=== PATIENT | male | born 1990 | race Hispanic/Latino ===

== ENCOUNTER 2018-08-02 16:21 | Inpatient (IN) | payer MEDICARE ==
--- NOTE | 2018-08-02 17:58 | PDOC.FPROB ---
FMR OB H&P: Medications - Current Home Medications: Medication Instructions Recorded Confirmed Type Diazepam [Valium] 10 mg PO HS 08/02/18 08/02/18 History Gabapentin 300 mg PO TID 08/02/18 08/02/18 History Hydroxyurea [Hydrea] 2,500 mg PO DAILY 08/02/18 08/02/18 History Hydroxyurea [Hydrea] 3,500 mg PO SEEPHYS 08/02/18 08/02/18 History METHadone HCl 10 mg PO BID 08/02/18 08/02/18 History METHadone HCl 20 mg PO HS 08/02/18 08/02/18 History Morphine IR Tab 30 mg PO BID 08/02/18 08/02/18 History Morphine IR Tab 60 mg PO HS 08/02/18 08/02/18 History Promethazine [Phenergan] 25 mg PO DAILY 08/02/18 08/02/18 History Rivaroxaban [Xarelto] 20 mg PO DAILY 08/02/18 08/02/18 History diphenhydrAMINE [Benadryl] 25 mg PO DAILY 08/02/18 08/02/18 History Allergies/Adverse Reactions: Allergies Allergy/AdvReac Type Severity Reaction Status Date / Time cyclobenzaprine HCl Allergy Intermediate Swollen Verified 06/27/15 22:12 [From Flexeril] Lips FMR OB H&P: Vital Signs - Maternal Vital signs: Vital Signs - First Documented Temp Pulse Resp BP Pulse Ox 98.6 F 119 H 18 113/81 96 08/02/18 17:15 08/02/18 17:15 08/02/18 17:15 08/02/18 17:15 08/02/18 17:15 FMR OB H&P: A/P Discussion: Date/Time: 08/02/18 8498 This H&P was discussed with [] and [] who agree with the above documentation and plan.
[2018-08-02 18:45] LABS: Hemoglobin 9.4 g/dL (14.0-18.0); Mean Corpuscular HGB CONC 36.5 g/dL (32.0-36.0); Mean Corpuscular Hemoglobin 37.2 pg (27.0-31.0); Platelet Count 343 thou/uL (130-400); RBC Distribution Width 20.8 % (11.5-14.5); Red Blood Cell (RBC) Count 2.53 mill/uL (4.70-6.10)
[2018-08-02 18:49] LABS: ALT (SGPT) 19 U/L (8-55); AST (SGOT) 24 U/L (5-34); Albumin 3.2 g/dL (3.5-5.0); Alkaline Phosphatase 118 U/L (40-150); Anion Gap 12 mmol/L (10-20); BUN (Urea Nitrogen) 16 mg/dL (8.9-20.6); Bilirubin, Total 4.1 mg/dL (0.2-1.2); Calc. Creatinine Clearance 127 mL/min (70-130); Calcium 8.8 mg/dL (7.8-10.44); Carbon Dioxide 23 mmol/L (22-29); Chloride 110 mmol/L (98-107); Estimated GFR-MDRD 77; Globulin 4.8 g/dL (2.4-3.5); Glucose 112 mg/dL (70-105); Potassium 3.7 mmol/L (3.5-5.1); Sodium 141 mmol/L (136-145)
[2018-08-02 18:52] LABS: CKMB 2.3 ng/mL (0-6.6)
[2018-08-02 18:56] LABS: Troponin I 0.745 ng/mL (< 0.028)
--- NOTE | 2018-08-02 19:01 | RAD ---
CHEST ONE VIEW: History: 28-year-old male with history of sickle cell crisis. Comparison: 03-10-16 FINDINGS: Left central line and injection port. Monitor leads overlie the chest. Minimal cardiomegaly. Bone manish nges consistent with sickle cell anemia. Patchy interstitial and alveolar nodular parenchymal changes noted bilaterally, particularly in the midlung zones but stable to improved from the prior 03-10-16 s tudy. No new confluent process. No pleural effusion. IMPRESSION: Cardiomegaly with bilateral interstitial and alveolar parenchymal changes, actually improved from the 2016 study, certainly consistent with sickle cell disease as well as associated bone changes. No sig nificant new confluent process. POS: NEELA
[2018-08-02 19:09] LABS: Acanthocytes SLIGHT = 1-5 cells (100X) (None Seen); Anisocytosis SLIGHT = 6-15 cells (100X) (0-5/hpf); Band 24 % (5-11); Elliptocytes SLIGHT = 2-5 cells (100X) (0-1/hpf); Hypochromia SLIGHT = 6-15 cells (100X) (0-5/hpf); Lymphocytes 7 % (21-51); MDiff Complete? YES; Monocytes 3 % (0-10); Neutrophil 66 % (42-75); PLT Morphology Comment Appears Adequate; Poikilocytosis SLIGHT = 6-15 cells (100X) (0-5/hpf); Polychromasia SLIGHT = 2-3 cells (100X) (0-2/hpf); Tear Drops SLIGHT = 2-5 cells (100X) (0-1/hpf)
[2018-08-02] MEDS ORDERED: Azithromycin 250 MG TAB PO SCH (19:15)
[2018-08-02] MEDS ORDERED: Dextrose 5 %-0.45 % NaCl 1,000 ML IV SCH (19:15)
--- NOTE | 2018-08-02 19:23 | PDOC.FPRHP ---
- History of Present Illness Chief Complaint: Pain History of Present Illness: Patient presents with CC of increasing pain that became uncontrollable with home meds. Took promethazine, benadryl methadone, morphine. Initially presented to [facility] and was transferred here. Pain started last night, felt drowsy. While he was sleeping he vomited in his sleep. Since then has had decreased PO intake, only a cup of water since arriving at hospital. Reports pain all over, worst pain is in his joints, low back, knees, L hip, shoulders. Pain with deep inspiration. Denies difficulty breathing, SOB, cough, fever. No sick contacts. Reported chest pain at [facility] but currently denies. Has been ambulating normally. On the way to his doctor's appt in [place], he was hospitalized 07/16 at [facility] for 3 days due to "low O2". No medication changes. - Allergies/Adverse Reactions Allergies Allergy/AdvReac Type Severity Reaction Status Date / Time cyclobenzaprine HCl Allergy Intermediate Swollen Verified 06/27/15 22:12 [From Flexeril] Lips - Home Medications Medication Instructions Recorded Confirmed Type Diazepam [Valium] 10 mg PO HS 08/02/18 08/02/18 History Gabapentin 300 mg PO TID 08/02/18 08/02/18 History Hydroxyurea [Hydrea] 2,500 mg PO DAILY 08/02/18 08/02/18 History Hydroxyurea [Hydrea] 3,500 mg PO SEEPHYS 08/02/18 08/02/18 History METHadone HCl 10 mg PO BID 08/02/18 08/02/18 History METHadone HCl 20 mg PO HS 08/02/18 08/02/18 History Morphine IR Tab 30 mg PO BID 08/02/18 08/02/18 History Morphine IR Tab 60 mg PO HS 08/02/18 08/02/18 History Promethazine [Phenergan] 25 mg PO Q6HR PRN 08/02/18 08/02/18 History Rivaroxaban [Xarelto] 20 mg PO DAILY 08/02/18 08/02/18 History diphenhydrAMINE [Benadryl] 25 mg PO Q6HR PRN 08/02/18 08/02/18 History - History PMHx: sickle cell, avascular necrosis (hip, lumbar, shoulder), hx of PE, pulmonary HTN PSHx: cholecystectomy, tosillectomy, R hip, embolectomy on head, mediport FHx: unsure Social: Denies tobacco, alcohol, drug use - Review of Systems General: reports: fatigue, other (reports headache). denies: fever/chills Eyes: denies: vision changes ENT: denies: nasal congestion, rhinorrhea Respiratory: denies: cough, congestion, shortness of breath Cardiovascular: reports: chest pain. denies: palpitation, edema Gastrointestinal: reports: vomiting. denies: nausea, diarrhea, constipation, abdominal pain Genitourinary: denies: dysuria Skin: denies: rashes, lesions Musculoskeletal: reports: pain, tenderness Neurological: denies: numbness, syncope - Vital signs BP: 135/84 HR: 96 RR: 23 Pox: 89% on 2L Wt: 93 kg - Physical Exam Constitutional: NAD, awake, alert and oriented HEENT: normocephalic and atraumatic, PERRLA, grossly normal vision, grossly normal hearing, MMM, oropharynx clear Heart: RRR, normal S1/S2, other (4/6 systolic murmur heard best over mitral post ) Lungs: CTAB, no respiratory distress, good air movement, no wheezing Abdomen: soft, non-tender, bowel sounds present, no masses/distention Musculoskeletal: normal structure, normal tone Neurological: no focal deficit Skin: no rash/lesions, good turgor, capillary refill <2 seconds Heme/Lymphatic: no unusual bruising or bleeding FMR H&P: Results - Labs Result Diagrams: 08/02/18 18:14 08/02/18 18:14 Lab results: WBC 30.0 thou/uL (4.8-10.8) H 08/02/18 18:14 Hgb 9.4 g/dL (14.0-18.0) L 08/02/18 18:14 Hct 25.8 % (42.0-52.0) L 08/02/18 18:14 MCV 102.0 fL (78.0-98.0) H 08/02/18 18:14 Plt Count 343 thou/uL (130-400) 08/02/18 18:14 Band Neuts % (Manual) 24 % (5-11) H 08/02/18 18:14 Sodium 141 mmol/L (136-145) 08/02/18 18:14 Potassium 3.7 mmol/L (3.5-5.1) 08/02/18 18:14 Chloride 110 mmol/L (98-107) H 08/02/18 18:14 Carbon Dioxide 23 mmol/L (22-29) 08/02/18 18:14 BUN 16 mg/dL (8.9-20.6) 08/02/18 18:14 Creatinine 1.12 mg/dL (0.6-1.3) 08/02/18 18:14 Glucose 112 mg/dL (70-105) H 08/02/18 18:14 Calcium 8.8 mg/dL (7.8-10.44) 08/02/18 18:14 Total Bilirubin 4.1 mg/dL (0.2-1.2) H 08/02/18 18:14 AST 24 U/L (5-34) 08/02/18 18:14 ALT 19 U/L (8-55) 08/02/18 18:14 Alkaline Phosphatase 118 U/L (40-150) 08/02/18 18:14 CK-MB (CK-2) 2.3 ng/mL (0-6.6) 08/02/18 18:14 Serum Total Protein 8.0 g/dL (6.0-8.3) 08/02/18 18:14 Albumin 3.2 g/dL (3.5-5.0) L 08/02/18 18:14 FMR H&P: A/P - Problem List (1) Sickle cell anemia with crisis Current Visit: No Status: Acute Code(s): D57.00 - HB-SS DISEASE WITH CRISIS , UNSPECIFIED Comment: Improving (2) Sepsis Current Visit: Yes Status: Acute Code(s): A41.9 - SEPSIS, UNSPECIFIED ORGANISM (3) Elevated troponin Current Visit: Yes Status: Acute Code(s): R74.8 - ABNORMAL LEVELS OF OTHER SERUM ENZYMES (4) Newly recognized murmur Current Visit: Yes Status: Acute Code(s): R01.1 - CARDIAC MURMUR, UNSPECIFIED (5) Pain Current Visit: No Status: Acute Code(s): R52 - PAIN, UNSPECIFIED (6) History of total right hip arthroplasty Current Visit: No Status: Chronic Code(s): Z96.641 - PRESENCE OF RIGHT ARTIFICIAL HIP JOINT - Plan 28 yo M with PMH sickle cell presents with increasing pain Vaso-occlusive sickle cell crisis - unable to control with home meds (methadone, morphine) - consulted anesthesiology for SAUSAGE GRINDER pump evaluation - CTA at [facility] negative for PE - IVF @ 1.5x maintenance. Will decrease in 24-48hrs or as patient is better tolerating PO intake. - elevated retic, LDH. Total bili 4.4, but at baseline. will continue to monitor labs for end organ damage - azithromycin (08/02) and levaquin (08/03) - continue home hydroxyurea, gabapentin, promethazine - Pulm consulted, Dr. Trinidad aware Sepsis possibly 2/2 lung infection - tachycardia, new lung infiltrate seen on CXR, leukocytosis with bands - treatment as above. tachy could be 2/2 to pain - blood cx drawn at outside ED - flu swab negative Elevated troponin - 0.4-> 0.745->0.62 - consulted cardiology, spoke to Dr. Cuadra who plans to see pt in am - T inversions, ST depressions in V2-4 - pt currently denies CP, likely 2/2 demand ischemia - on xarelto at home for hx of PE Heart murmur - no hx of murmur, no previous documentation. BNP 1130. - echo ordered - cardiology consulted Macrocytic anemia - H/H .10/17-->9.4 - monitor on am labs - goal to have Hgb above 10. will consider transfusion if hgb drops. Hyperbilirubinemia - 4.1, which is baseline - am CMP Hx of PE - on xarelto at home, continue Hx of Pulmonary HTN - on 2L at home. No increased O2 requirements during hospitalization Diet: Regular Code: FULL Dispo: Admit to IMCU FMR H&P: Upper Level - Pertinent history 28 yo HM with PMH of sickle cell disease and multiple complications presenting as admit from [facility] ER. Pt and "Marissa mother" report that pt began having worsening pain last night and attempted to control it with home medications but his pain continued to worsen. Pt reports 10/10 joint pain all over with no one joint hurting more than others. Pt denies CP but does note some increased SOB. He is chronically on 2L O2 via NC. Pt takes PO morphine and methadone for home pain control. Pt also takes hydroxyurea and is primarily managed by sand miller in [place]. Pt reports dx of pulmonary HTN on RHC in the last 1 year. Pt denies fever/chills, cough, NVD, dysuria, sick contacts, recent travel. - Pertinent findings Gen: well developed in mild pain/distress CV: tachycardic, 5/6 blowing holosytolic murmur best heart at [facility] Resp: normal effort, CTAB Abd: BS+, NTTP - Plan Date/Time: 08/02/181922 I, Balwinder Mejias MD PGY3, have evaluated this patient and agree with findings/ plan as outlined by intern product marketing manager resident. Pertinent changes/additions are listed here. 1. Vaso-occlusive event in Sickle Cell Disease -Pt presents for acute worsening of pain in the setting of known Sickle Cell Disease. Per reports, pt originally c/o CP but denies any current complaints of CP. Workup at outlying ER showed new alveolar infiltrates but no true consolidation. -At this time, without true consolidation on CXR and no evidence of cough, CP, tachypnea, wheezing, rales, or respiratory distress, acute chest syndrome is less likely. Pt admitted to IMCU and will continue to monitor closely. -Pt takes morphine and methadone at home for pain control. Will consult anesthesia for pain control and possible evaluation for SAUSAGE GRINDER. -Pt currently on home O2 requirement of 2L via NC, continue. -Will start pt on D5 1/2NS at 1.5x maintenance. -Obtain reticulocyte count and LDH. -With leukocytosis and CXR, will start pt on abx including Azithromycin for atypical coverage and Levaquin for S. Pna coverage. -Avoid NSAIDs, diuretics, or other nephrotoxic agents. 2. Sepsis 2/2 pulmonary infection -Pt presents with tachycardia, leukocytosis with bandemia and new infiltrates on CXR. 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 Cover for atypicals , S pna, and H influenzae. -Blood cultures obtained at outside facility. -Pt has not received flu shot, will screen with influenza swab. 3. Elevated cardiac enzymes 2/2 demand ischemia vs NSTEMI -Pt presents with tachycardia likely secondary to acute pain but denies CP. -EKG shows no acute STEMI but T wave inversions and ST depressions. -With upward trending cardiac enzymes from outlying ER, will consult cardiology at this time. -Continue to trend cardiac enzymes. -Pt anticoagulated with Xarelto due to history of prior PE/DVT. 4. New systolic murmur -Per pt report and chart review, no documented murmur on exam in the past. -TTE ordered and cardiology consulted. 5. Elevated bilirubin likely 2/2 number 1 -Near baseline -Continue to monitor 6. Pulmonary HTN 2/2 number 1 -Pt carries diagnosis. -Continue oxygen via NC. FULL code PPx: Xarelto for VTE, no GI indicated. disposition: Admit to inpatient IMCU for anticipated length of stay greater than two midnights, pending clinical course. Attending Addendum - Attending Addendum Date/Time: 08/02/182033 I personally evaluated the patient and discussed the management with Dr. Enriquez /Randell I agree with the History, Examination, Assessment and Plan documented above with any addition or exceptions noted below- Briefly this is a 28 yo male with h /o SC disease, pulmonary hypertension, avascular necrosis of the hip (right), h/ o of PE on xarelto presents c/o 1 day h/o worsening pain all joints, decreased po intake, increased SOB. Denies any fever, sore throat, URI symptoms, or ill contacts. Did have some N/V last night. Last saw his sand miller 2 weeks ago- no recent medication changes. PMH/PSH/Meds/All/Sh reviewed and agree with resident's documentation. Afebrile P119 RR 20 96% on 2 L NC BP 113/81. Exam repeated by me and agree with resident's findings. Labs: WBC=30.0, H/H= 9.4/25.8 , plt= 343, Diff= 66N/24B/7L, Cm=525, K=3.7, Bz=264, CO2=23, BUN/Cr= 16.112, Hfyl=970, t bili= 4.1, LDH= 451, AST/ALT= 24/19, retic count= 8.3, trop I = 0.4 -> 0.745. CXR- b/l interstitial and alveolar parenchymal changes- improved from 2016. EKG- sinus tachycardia, ST depression V2-V3 and inverted T waves V2 and V3. A/P: 1) Vaso-occlusive crises- Admit to IMCU. Continue IVF, pain medications , Oxygen. 2) Possible infectious process with elevated WBC and bandemia- check flu swab, blood cultures drawn at outside facility. Start on antibiotics. 3) New murmur- will check echo; obtain records from his physicians in [place]. 4) Pulmonary HTN- continue O2.
[2018-08-02 19:26] LABS: Reticulocyte Count 8.3 % (0.5-1.5)
[2018-08-02] MEDS ORDERED: Naloxone HCl 0.4 mg/ml Vial IV PRN (19:57)
[2018-08-02] MEDS ORDERED: diphenhydrAMINE 50 MG/ML VIAL IM PRN (19:57)
[2018-08-02] MEDS ORDERED: diphenhydrAMINE 25 MG CAP PO PRN (19:57)
[2018-08-02] MEDS ORDERED: Zolpidem Tartrate 5 MG TAB PO PRN (19:57)
[2018-08-02] MEDS ORDERED: Communication Order-Pharmacy FS SCH (20:00)
[2018-08-02] MEDS: fentaNYL Citrate/PF 2,000 MCG in Sodium Chloride 0.9% 60 ML IV PRN (20:19)
[2018-08-02] MEDS: Dextrose 5 %-0.45 % NaCl 1,000 ML IV SCH (20:22)
[2018-08-02] MEDS: Gabapentin 300 MG CAP PO SCH (20:35)
[2018-08-02] MEDS: Promethazine HCl 25 MG/ML VIAL IM PRN (20:39)
[2018-08-02] MEDS: diphenhydrAMINE 50 MG/ML VIAL IVP PRN (20:39)
[2018-08-02] MEDS ORDERED: METHadone HCl 10 MG TAB PO SCH (21:00)
[2018-08-02] MEDS ORDERED: Diazepam 5 MG TAB PO SCH (21:00)
[2018-08-02 21:24] LABS: CKMB 2.3 ng/mL (0-6.6)
[2018-08-02 21:31] LABS: Critical Call Chem Troponin I RESULT DECREASING
[2018-08-03] MEDS: Dextrose 5 %-0.45 % NaCl 1,000 ML IV SCH ×6 (00:14→21:34)
[2018-08-03] MEDS: diphenhydrAMINE 50 MG/ML VIAL IVP PRN ×6 (00:16→22:54)
[2018-08-03 05:33] LABS: ALT (SGPT) 19 U/L (8-55); AST (SGOT) 26 U/L (5-34); Albumin 3.2 g/dL (3.5-5.0); Alkaline Phosphatase 108 U/L (40-150); Anion Gap 13 mmol/L (10-20); BUN (Urea Nitrogen) 20 mg/dL (8.9-20.6); Bilirubin, Total 2.9 mg/dL (0.2-1.2); Calc. Creatinine Clearance 83 mL/min (70-130); Calcium 8.1 mg/dL (7.8-10.44); Carbon Dioxide 22 mmol/L (22-29); Chloride 107 mmol/L (98-107); Estimated GFR-MDRD 47; Globulin 4.5 g/dL (2.4-3.5); Glucose 136 mg/dL (70-105); Potassium 3.8 mmol/L (3.5-5.1); Protein, Total 7.7 g/dL (6.0-8.3); Sodium 138 mmol/L (136-145)
--- NOTE | 2018-08-03 07:11 | PDOC.FM ---
- Subjective Subjective: Gelacio Malcolm is a 28 year old M with a PMH of sickle cell disease with hx of avascular necrosis and total hip replacement who presented to ED with complaint of diffuse pain, nausea, and myalgias for 3 days that failed to improve with home regimen of methadone, morphine, and hydroxyurea. He has no acute events overnight and continues to complain of pain and nausea, requests to have phenergan switched from IM to IV. Per nursing staff, he slept most of the night and did not complain of too much additional pain. - Objective MAR Reviewed: Yes Vital Signs & Weight: Vital Signs (12 hours) Temp Pulse Resp BP Pulse Ox 08/03/18 03:43 97.6 F 120 H 18 107/75 94 L 08/02/18 23:52 97.5 F L 120 H 18 126/82 93 L 08/02/18 20:00 93 L 08/02/18 19:25 98.1 F 126 H 20 119/77 93 L Weight Weight 93.695 kg I&O: 08/02/18 08/03/18 08/04/18 06:59 06:59 06:59 Intake Total 3095 Balance 3095 Result Diagrams: 08/03/18 07:04 08/03/18 04:45 <Ricardo Addison - Last Filed: 08/03/18 11:03> - Objective Vital Signs & Weight: Vital Signs (12 hours) Temp Pulse Resp BP Pulse Ox 08/03/18 20:00 93 L 08/03/18 19:29 98.8 F 129 H 27 H 119/84 93 L 08/03/18 15:35 115 H 15 99/73 93 L 08/03/18 11:00 97.9 F 111 H 16 101/72 95 Weight Weight 93.695 kg I&O: 08/02/18 08/03/18 08/04/18 06:59 06:59 06:59 Intake Total 3095 840 Output Total 500 1500 Balance 2595 -660 Result Diagrams: 08/03/18 07:04 08/03/18 04:45 <Miko Ro - Last Filed: 08/03/18 21:55> Phys Exam - Physical Examination Constitutional: NAD HEENT: moist MMs, sclera anicteric Neck: no JVD, supple, full ROM Respiratory: no wheezing, no rales, no rhonchi, clear to auscultation bilateral tachycardic, 3/6 systolic murmur Gastrointestinal: soft, non-tender, no distention Musculoskeletal: no edema, pulses present diffuse pain and TTP in major joints, no point of maximal pain per pt Neurological: moves all 4 limbs Psychiatric: normal affect, A&O x 3 Skin: cap refill <2 seconds <Ricardo Addison - Last Filed: 08/03/18 11:03> Dx/Plan (1) Sickle cell anemia with crisis Code(s): D57.00 - HB-SS DISEASE WITH CRISIS, UNSPECIFIED Status: Acute (2) Sepsis Code(s): A41.9 - SEPSIS, UNSPECIFIED ORGANISM Status: Acute (3) Newly recognized murmur Code(s): R01.1 - CARDIAC MURMUR, UNSPECIFIED Status: Acute (4) Pain Code(s): R52 - PAIN, UNSPECIFIED Status: Acute (5) Elevated troponin Code(s): R74.8 - ABNORMAL LEVELS OF OTHER SERUM ENZYMES Status: Acute (6) NSTEMI (non-ST elevated myocardial infarction) Code(s): I21.4 - NON-ST ELEVATION (NSTEMI) MYOCARDIAL INFARCTION Status: Acute - Plan Plan: Gelacio Malcolm is a 28 year old M with PMH of sickle cell disease being admitted for acute pain crisis with concern for acute chest syndrome Consults: 1) Cardiology-Dr. Cuadra 2) Pulmonology-Dr. Ayon 3) Anesthesiology HRIS MANAGER: - Alert and oriented X3, no focal deficits - Sedation/Meds: No sedation, current on Fentanyl WIRE BENDER HAND managed by Anesthesia - Benadryl and Phenergan for nausea and itching RESP: concern for pneumonia, hx of pulmonary HTN - O2 sats 93-96% on 2L NC, no respiratory distress, lungs CTAB-improved from admission - ABG: not indicated at this time - CTA chest: no evidence for acute PE, patchy ground glass opacities bilaterally. 10 mm opacity noted laterally at right upper lung - CXR: no evidence for acute cardiopulmonary disease - Pulm regimen: O2 supplementation, Levaquin and Azithromycin to cover for PNA CV: 3/6 systolic murmur not previously documented - Tachycardic, regular rhythm, 3/6 systolic murmur, not previously documented - Checking Echo, results pending - BP 107/75, HR 120 - Consider repeating imaging - EKG shows no ST elevations, but does show T wave inversions and ST depressions - Dr. Cuadra, Cardiology, has been consulted GI: - abd NT/ND, Normoactive BS - GI ppx: none - Diet: regular - I/Os: intake of 3095 L, urinary output in urinal unmeasured at this time - D5 1/2 NS @ 190 ml/hr - Na 138, K 3.8, Cl 107, HCO3 22 Heme: Hx of PE, vaso-occlusive sickle cell crisis - H/H 9.4/25.8 - DVT Ppx: Xarelto - Continue home hydroxyurea - Takes methadone and morphine via mediport at home - Consulting Dr. Mcconnell, Hematology/Onc /Renal - voiding normally - unmeasured voids - Cr 1.73, up from 1.12 - Avoiding NSAIDs, diuretics, or other nephrotoxic agents ID: sepsis with concern for pneumonia on CT of chest - Day 2 of Levaquin, Day 2 of Azithromycin - Tmax 98.6, Tachycardic 120 - WBC 30.0, 66% PMNs, 24% bands - Procalcitonin pending - blood culture drawn by outside ER - Flu swab negative - Checking viral respiratory panel Skin: - normal skin exam Lines: - L mediport present on arrival - No peripheral IVs at this time Dispo: >2 days Code status: Full Code <Ricardo Addison - Last Filed: 08/03/18 11:03> Attending Addendum - Attending Addendum Date/Time: 08/03/18 3922 I personally evaluated the patient and discussed the management with Dr. Addison. I agree with and repeated the History, Examination, Assessment and Plan documented above with any addition or exceptions noted below. <Miko oR - Last Filed: 08/03/18 21:55>
[2018-08-03 07:18] LABS: Hemoglobin 8.8 g/dL (14.0-18.0); Mean Corpuscular Hemoglobin 34.1 pg (27.0-31.0); Mean Platelet Volume 7.9 fL (7.4-10.4); Platelet Count 370 thou/uL (130-400); RBC Distribution Width 20.8 % (11.5-14.5); Red Blood Cell (RBC) Count 2.56 mill/uL (4.70-6.10); White Blood Cell (WBC) Count 21.1 thou/uL (4.8-10.8)
[2018-08-03] MEDS: Rivaroxaban 10 MG TAB PO SCH (08:46)
[2018-08-03] MEDS: Gabapentin 300 MG CAP PO SCH ×3 (08:47→21:32)
[2018-08-03] MEDS: Azithromycin 250 MG TAB PO SCH (08:47)
[2018-08-03] MEDS: Hydroxyurea 500 MG CAP PO SCH (08:48)
[2018-08-03] MEDS: diphenhydrAMINE 25 MG CAP PO SCH (08:49)
[2018-08-03] MEDS ORDERED: METHadone HCl 10 MG TAB PO SCH (09:00)
[2018-08-03 09:16] LABS: Band 1 % (5-11); Eosinophils 1 % (0-10); Lymphocytes 41 % (21-51); MDiff Complete? YES; Monocytes 1 % (0-10); Neutrophil 56 % (42-75); PLT Morphology Comment Appears Adequate; Polychromasia MARKED = >4 cells (100X) (0-2/hpf); Schistocytes SLIGHT = 2-5 cells (100X) (0-1/hpf); Spherocytes SLIGHT = 1-5 cells (100X) (None Seen)
--- NOTE | 2018-08-03 09:52 | CON ---
DATE OF CONSULTATION: 08/03/2018 HISTORY OF PRESENT ILLNESS: This is a 28-year-old gentleman who presented with sickle cell crisis. He was seen several years ago by Dr. Almeida after he presented with respiratory failure with bilater al pulmonary infiltrates secondary to sickle cell crisis and acute chest syndrome. Today, he is having significant headache, joint pains. He denies any coughing, fever or chills. He has multiple pains in multiple joints. SOCIAL HISTORY: Nonsmoker. PAST MEDICAL HISTORY: Well outlined, pertinent for sickle cell disease, history of previous apparent ly pulmonary emboli, history of pulmonary hypertension. PAST SURGICAL HISTORY: Tonsils, right hip, MediPort, cholecystectomy. ALCOHOL: None. TOBACCO: None. MEDICATIONS: From home includes Phenergan 25 p.r.n., Benadryl b.i.d. and p.r.n. Hydrea 2500 mg daily , gabapentin 300 mg 3 times a day, Xarelto 20 once a day, morphine 60 mg at night time, 30 mg twice a day, methadone 20 at bedtime 10 twice a day, Valium. Since admission has been started on antibiotics, hydration, pain medication. REVIEW OF SYSTEMS: Otherwise, 10-point negative. PHYSICAL EXAMINATION: VITAL SIGNS: His sats are 96 on 2 liters, respirations 15, temperature 98, pulse 118, blood pressure 104/70. GENERAL: Appears to be in no acute respiratory distress, but clearly in pain. CHEST: Decreased breath sounds, no wheezing. CARDIAC: Normal S1, S2, no gallops. ABDOMEN: Soft, no masses. LABORATORY: His creatinine is 1.73. Elevated from previous creatinine, otherwise electrolytes are n ormal. White count 21,000, H&H 8 and 26, platelet count is normal. His chest x-ray shows bilateral pulmonary infiltrates, though he has had similar infiltrates in the p ast versus cardiomegaly. IMPRESSION: 1. Sickle cell crisis with acute chest syndrome, appears to be in no acute distress. 2. Chronic pain. 3. Renal failure. PLAN: Continue aggressive hydration. Empiric antibiotics, supportive care. I will follow while in the IM.
[2018-08-03] MEDS: Promethazine 25 MG TAB PO SCH (10:36)
[2018-08-03] MEDS: Promethazine HCl 25 MG/ML VIAL IM PRN ×2 (10:37→15:06)
[2018-08-03] MEDS ORDERED: Benzocaine (Dental) 20% 10 gm Tube TOP PRN (13:15)
[2018-08-03] MEDS: fentaNYL Citrate/PF 2,000 MCG in Sodium Chloride 0.9% 60 ML IV PRN (18:59)
[2018-08-03] MEDS: Promethazine HCl 25 MG/ML VIAL SLOW IVP PRN ×2 (18:59→22:54)
--- NOTE | 2018-08-03 22:44 | CON ---
DATE OF CONSULTATION: 08/03/2018 REASON FOR CONSULTATION: Sickle cell pain crisis. HISTORY OF PRESENT ILLNESS: A 28-year-old male with sickle-cell disease presenting with worsening pain. The patient presented to [facility] with worsening pain and subsequently was transferred to [facility]. Pain started the night prior to admission. The patient complains of pain in his knees, hips, shoulders, and lower back with an uncomfortable feeling in his chest, accompanied by cough. The patient is currently satting 90%-96% on 2 liters by nasal cannula and the patient states that he uses oxygen at home. The patient denied any fevers or chills currently. The patient states he was hospitalized one other time this year for crisis and twice last year. The patient follows with a physician in [place] at [facility]. The patient currently takes hydroxyurea at home and states he is compliant with this. He takes methadone chronically for long-acting pain control along with immediate-release morphine. This typically controls his pain. The patient has avascular necrosis in hips and shoulders, and states he is due for another hip replacement in the coming months. The patient is currently on a fentanyl KITCHEN FOOD ASSEMBLER, which is being controlled by Anesthesia and this has resulted in improvement in his symptoms. The patient states that he has a headache and has not really felt like eating since being admitted to the hospital. Chest x-ray upon transfer to the hospital showed cardiomegaly with bilateral interstitial and alveolar parenchymal changes, improved as compared to 2016. A CT angio of the chest done at [facility] did not show any pulmonary embolism; however, imaging did show a 10-mm opacity laterally in the right upper lung and patchy ground-glass opacities. A 3/6 systolic ejection murmur was noted and echocardiogram was done this morning with results currently pending. The patient states he has not required blood transfusions in the last couple of years and his baseline hemoglobin ranges from 7-9. Of note, the patient is also on Xarelto for history of PE. The patient does not report problems with his MediPort. REVIEW OF SYSTEMS: Ten-point review of systems is negative except as per HPI. 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 PAST SURGICAL HISTORY: Cholecystectomy, tonsillectomy, right hip replacement, embolectomy in the head, and MediPort placement. FAMILY HISTORY: Unsure. SOCIAL HISTORY: Denies tobacco, alcohol, or drug use. PHYSICAL EXAMINATION: VITAL SIGNS: Temperature 97.9, pulse 115, respirations 15, satting 93% on 2 liters by nasal cannula, blood pressure 99/73. GENERAL APPEARANCE: The patient is lying in bed in no acute distress. HEENT: No scleral icterus noted. NECK: Supple. CARDIOVASCULAR: 3/6 murmur. Respirations nonlabored. LUNGS: Clear to auscultation bilaterally. The patient is currently on nasal cannula with oxygen flow at 2 liters. ABDOMEN: Soft, nondistended with mild tenderness to palpation diffusely. SKIN: No rashes. MediPort in place without tenderness or erythema. NEUROLOGIC: Cranial nerves II-XII grossly intact. PSYCHIATRIC: Awake, alert, and oriented x3. LABORATORY DATA: White blood cells 30 on admission, currently 21.1; hemoglobin 9.4 on admission, currently 8.8 with an MCV of 103; platelet count of 370. Retic count 8.3 with an absolute retic count of 209,000. BUN 20; creatinine 1.73, up from 1.12 on admission. Total bilirubin 4.1 on admission, currently 2.9; LDH 451. Troponin is 0.745, down to 0.620. IMAGING DATA: CT angio of the chest done at [facility] showed bilateral ground glass opacities and a 10-mm lateral right upper lobe opacity. ASSESSMENT AND PLAN: A 28-year-old male with sickle-cell disease presenting with acute pain crisis and mild acute chest syndrome. The patient has chest pain and cough along with leukocytosis and some imaging findings on scan of the chest, which was consistent with a diagnosis of acute chest syndrome , which may be secondary to pneumonia. The patient is currently on antibiotics and is improving. The patient's hemoglobin is at his baseline and he has an appropriate reticulocyte response. I do not advise blood transfusions at this time. I would not transfuse unless hemoglobin is less than 5 or the patient becomes extremely hypoxic. The patient's pain is reasonably well controlled with fentanyl KITCHEN FOOD ASSEMBLER and we will defer treatment to Anesthesiology with regards to pain. Agree with Cardiology consult due to new murmur and history of pulmonary hypertension as pulmonary hypertension is the #1 cause of in aging sickle- cell patients. Okay to continue hydroxyurea at this time as the patient has been taking it chronically, and based on elevated MCV is compliant with his treatment. We will continue to follow this patient with you. Please call with questions. Thank you for this consult. MARCELLUS
[2018-08-04] MEDS: Dextrose 5 %-0.45 % NaCl 1,000 ML IV SCH ×2 (03:43→08:14)
[2018-08-04] MEDS: Promethazine HCl 25 MG/ML VIAL SLOW IVP PRN ×5 (03:43→20:23)
[2018-08-04] MEDS: diphenhydrAMINE 50 MG/ML VIAL IVP PRN ×5 (03:44→20:32)
[2018-08-04 04:34] LABS: ALT (SGPT) 74 U/L (8-55); AST (SGOT) 73 U/L (5-34); Albumin 3.1 g/dL (3.5-5.0); Alkaline Phosphatase 106 U/L (40-150); Anion Gap 11 mmol/L (10-20); BUN (Urea Nitrogen) 12 mg/dL (8.9-20.6); Bilirubin, Total 3.5 mg/dL (0.2-1.2); Calc. Creatinine Clearance 135 mL/min (70-130); Carbon Dioxide 18 mmol/L (22-29); Chloride 110 mmol/L (98-107); Estimated GFR-MDRD 82; Globulin 4.4 g/dL (2.4-3.5); Glucose 127 mg/dL (70-105); Protein, Total 7.5 g/dL (6.0-8.3); Sodium 135 mmol/L (136-145)
--- NOTE | 2018-08-04 05:49 | PDOC.FM ---
- Subjective Subjective: Gelacio Malcolm seen at bedside this morning, he states that he is feeling fine, does complain of back pain. He denies any chest pain or difficulty breathing. Early this morning around 4 am, he had a temp of 101.2. Blood cultures were ordered. Patient seen and is no distress, he was resting comfortably in bed. Denies feeling feverish when examined around 0625 - Objective MAR Reviewed: Yes Vital Signs & Weight: Vital Signs (12 hours) Temp Pulse Resp BP Pulse Ox 08/04/18 04:00 101.2 F H 128 H 25 H 126/88 94 L 08/04/18 00:00 97.9 F 124 H 18 129/87 93 L 08/03/18 20:00 93 L 08/03/18 19:29 98.8 F 129 H 20 119/84 93 L Weight Weight 97.069 kg I&O: 08/02/18 08/03/18 08/04/18 06:59 06:59 06:59 Intake Total 3095 840 Output Total 500 1500 Balance 2595 -380 Result Diagrams: 08/04/18 03:41 08/04/18 03:41 Radiology Reviewed by me: Yes <Ricardo Addison - Last Filed: 08/04/18 11:04> - Objective Vital Signs & Weight: Vital Signs (12 hours) Temp Pulse Resp BP Pulse Ox 08/04/18 19:26 99.4 F 132 H 24 H 118/89 97 08/04/18 15:31 98.5 F 129 H 21 H 131/92 H 100 08/04/18 11:24 98.9 F 117 H 19 130/90 100 Weight Weight 97.069 kg I&O: 08/03/18 08/04/18 08/05/18 06:59 06:59 06:59 Intake Total 3095 5815 2004 Output Total 500 1500 3525 Balance 2595 7337 -2132 Result Diagrams: 08/04/18 03:41 08/04/18 03:41 <Miko Ro - Last Filed: 08/04/18 21:45> Phys Exam - Physical Examination Constitutional: NAD HEENT: moist MMs, sclera anicteric Neck: supple, full ROM Respiratory: no wheezing, no rales, no rhonchi, clear to auscultation bilateral tachycardic, 3/6 systolic murmur Gastrointestinal: soft, non-tender Musculoskeletal: no edema, pulses present Neurological: normal sensation, moves all 4 limbs Psychiatric: normal affect, A&O x 3 <Ricardo Addison - Last Filed: 08/04/18 11:04> Dx/Plan (1) Sickle cell anemia with crisis Code(s): D57.00 - HB-SS DISEASE WITH CRISIS, UNSPECIFIED Status: Acute (2) Sepsis Code(s): A41.9 - SEPSIS, UNSPECIFIED ORGANISM Status: Acute (3) Hb-SS disease with acute chest syndrome Code(s): D57.01 - HB-SS DISEASE WITH ACUTE CHEST SYNDROME Status: Acute (4) Newly recognized murmur Code(s): R01.1 - CARDIAC MURMUR, UNSPECIFIED Status: Acute (5) Pain Code(s): R52 - PAIN, UNSPECIFIED Status: Acute (6) Elevated troponin Code(s): R74.8 - ABNORMAL LEVELS OF OTHER SERUM ENZYMES Status: Acute (7) NSTEMI (non-ST elevated myocardial infarction) Code(s): I21.4 - NON-ST ELEVATION (NSTEMI) MYOCARDIAL INFARCTION Status: Acute - Plan Plan: Gelacio Malcolm is a 28 year old M with PMH of sickle cell disease Hospital Day #2 being admitted for acute pain crisis with concern for acute chest syndrome Consults: 1) Cardiology-Dr. Cuadra 2) Pulmonology-Dr. Ayon 3) Anesthesiology 4 ) Hem/Onc-Dr. Mcconnell [employer]: - Alert and oriented X3, no focal deficits - Sedation/Meds: No sedation, current on Fentanyl LEAF STICKER managed by Anesthesia - Benadryl and Phenergan for nausea and itching RESP: concern for pneumonia, hx of pulmonary HTN, mild acute chest syndrome - O2 sats 93-96% on 2L NC, no respiratory distress, lungs CTAB-improved from admission - ABG: not indicated at this time - CTA chest: no evidence for acute PE, patchy ground glass opacities bilaterally. 10 mm opacity noted laterally at right upper lung - CXR: no evidence for acute cardiopulmonary disease - Pulm regimen: O2 supplementation, Levaquin Day 2 and Azithromycin Day 2 to cover for PNA CV: 3/6 systolic murmur not previously documented - Tachycardic, regular rhythm, 3/6 systolic murmur, not previously documented - Checking Echo, results pending - BP 126/68, HR 128 - Consider repeating imaging - EKG shows no ST elevations, but does show T wave inversions and ST depressions - Dr. Cuadra, Cardiology, has been consulted GI: - abd NT/ND, Normoactive BS - GI ppx: none - Diet: regular - I/Os: -600 mL in last 12 hour, total balance +1900 - D5 1/2 NS @ 190 ml/hr, discontinuing IVFs this morning - Na 135, K 4.0, Cl 110, HCO3 18 Heme: Hx of PE, vaso-occlusive sickle cell crisis - H/H 9.4/25.8 - DVT Ppx: Xarelto - Continue home hydroxyurea - Takes methadone and morphine via mediport at home - Consulted Dr. Mcconnell, Hematology/Onc, who recommended to continue current management /Renal - voiding normally - unmeasured voids - Cr 1.06, improved from Cr 1.73 yesterday - Avoiding NSAIDs, diuretics, or other nephrotoxic agents ID: sepsis with concern for pneumonia on CT of chest - Day 2 of Levaquin, Day 2 of Azithromycin - Tmax 101.2, Tachycardic 128 - WBC 30.0, 66% PMNs, 24% bands, improved to 16.6 this morning - Procalcitonin 13.99, trending procal today - blood culture drawn by outside ER - Flu swab negative - Negative viral respiratory panel Skin: - normal skin exam Lines: - L mediport present on arrival - L peripheral IV Dispo: >2 days Code status: Full Code <Ricardo Addison - Last Filed: 08/04/18 11:04> Attending Addendum - Attending Addendum Date/Time: 08/04/18 [id number] I personally evaluated the patient and discussed the management with Dr. Addison. I agree with and repeated the History, Examination, Assessment and Plan documented above with any addition or exceptions noted below. <Miko Ro - Last Filed: 08/04/18 21:45>
[2018-08-04 06:55] LABS: Anisocytosis SLIGHT = 6-15 cells (100X) (0-5/hpf); Band 6 % (5-11); Eosinophils 1 % (0-10); Hemoglobin 8.4 g/dL (14.0-18.0); Lymphocytes 37 % (21-51); MDiff Complete? YES; Macrocytosis SLIGHT = 6-15 cells (100X) (0-5/hpf); Mean Corpuscular HGB CONC 33.2 g/dL (32.0-36.0); Mean Platelet Volume 8.3 fL (7.4-10.4); Monocytes 8 % (0-10); Neutrophil 47 % (42-75); Nucleated RBC 7 % (0); Platelet Count 361 thou/uL (130-400); Polychromasia MODERATE = 3-4 cells (100X) (0-2/hpf); Red Blood Cell (RBC) Count 2.47 mill/uL (4.70-6.10); Spherocytes SLIGHT = 1-5 cells (100X) (None Seen); White Blood Cell (WBC) Count 16.9 thou/uL (4.8-10.8)
[2018-08-04] MEDS: Rivaroxaban 10 MG TAB PO SCH (08:05)
[2018-08-04] MEDS: Azithromycin 250 MG TAB PO SCH (08:05)
[2018-08-04] MEDS: Hydroxyurea 500 MG CAP PO SCH (08:05)
[2018-08-04] MEDS: Gabapentin 300 MG CAP PO SCH ×3 (08:06→20:22)
[2018-08-04] MEDS: diphenhydrAMINE 25 MG CAP PO SCH (08:06)
[2018-08-04] MEDS: Promethazine 25 MG TAB PO SCH (08:06)
--- NOTE | 2018-08-04 08:48 | EKG ---
Test Reason : Blood Pressure : / mmHG Vent. Rate : 124 BPM Atrial Rate : 124 BPM P-R Int : 144 ms QRS Dur : 092 ms QT Int : 310 ms P-R-T Axes : 040 088 -24 degrees QTc Int : 445 ms Sinus tachycardia Incomplete right bundle branch block Abnormal ECG When compared with ECG of 08-MAR-2016 22:07, Fusion complexes are no longer Present Premature ventricular complexes are no longer Present Incomplete right bundle branch block is now Present Confirmed by DR. Gaby CUELLAR ([id number]) on 08/04/2018 8:47:59 AM Referred By: RENARD Confirmed By:DR. Gaby CUELLAR
--- NOTE | 2018-08-04 08:56 | PRG ---
DATE OF SERVICE: 08/04/2018 SUBJECTIVE: He is still having some pain, but it is under better control than yesterday. OBJECTIVE: VITAL SIGNS: His T-max has been 101.2, currently 99.8, pulse 127, blood pressure 128/89, O2 sat 93% on 3 liters. HEENT: Unremarkable. NECK: No JVD. LUNGS: Fairly clear without wheezing. CARDIAC: S1, S2, tachycardic. ABDOMEN: Soft. EXTREMITIES: No edema. LABORATORY DATA: White blood cell count 16.9, hematocrit 25.3, platelet count 361,000. Sodium 135, potassium 4, chloride 110, CO2 18, BUN 12, creatinine 1.0, glucose 127. ASSESSMENT: Sickle cell crisis with acute chest syndrome. PLAN: 1. Continued pain management. 2. Antibiotics. Levaquin and Zithromax are pretty much the same coverage, so I would suggest stoppi ng the azithromycin. 3. If crisis continues, consider Hematology consultation.
--- NOTE | 2018-08-04 12:45 | CON-2 ---
DATE OF CONSULTATION: 08/04/2018 REASON FOR CONSULTATION: Elevated troponins in the setting of sickle cell crisis. HISTORY OF PRESENT ILLNESS: This is a pleasant 28-year-old male that presented yesterday to [facility] Emergency Department with sudden onset diffuse pain secondary to sickle cell crisis. The patient was transferred to [facility] for further management of the sickle cell crisis as well as suspected infection. The patient states that yesterday the pain came on suddenly. He took his normal medications which include promethazine, Benadryl, Methadone, morphine, which did not assist with the pain control. He states that he does not necessarily have chest pain, but does have discomfort particularly when taking a deep breath in during respiration. The patient denied any difficulty breathing or shortness of breath except after he gets up and tries to exert himself. He states that he does have a cough today, but did not feel ill or have a fever prior to presentation. The patient reports that he has not had any sick contacts. The patient was hospitalized at [facility] for 3 days on 07/16/2018 due to hypoxemia. The patient was started on oxygen at that time and diagnosed with pulmonary hypertension. The patient states that he uses his oxygen as needed after checking his oxygen saturation via finger pulse oximetry. He usually requires 2-3 liters of oxygen. 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 The patient has not had any medication changes recently. The patient states that he does follow up with a tmr teacher in [place]. He cannot recall the name of the tmr teacher at this time. In regards to cardiac history, the patient states that he had an NSTEMI 3 years ago. He did not have a cardiac catheterization or any other testing at that time. The patient states that he thinks within the last year he had a cardiac catheterization in [place]. He states that he did not require any stents to be placed. Currently, the patient denies any chest pain, shortness of breath. He is diaphoretic and in a significant amount of pain. The patient is also tachycardic and states that his heart rate gets fairly elevated when his pain is not well controlled. The patient states that he does have pain with deep inspirations and some shortness of breath when he gets up and tries to walk around. This is all secondary to his diffuse pain. PAST MEDICAL HISTORY: 1. Sickle cell disease. 2. Avascular necrosis of the right hip, lumbar spine, shoulder. 3. History of recurrent pulmonary emboli. 4. Recently diagnosed pulmonary hypertension, on oxygen at home p.r.n. PAST SURGICAL HISTORY: 1. Cholecystectomy. 2. Tonsillectomy. 3. Right hip surgery for avascular necrosis. 4. Embolectomy of the brain. 5. MediPort placement in 2009 after the patient experienced organ failure. The patient states that there has never been a discussion about removing this MediPort. FAMILY HISTORY: The patient states that both parents have sickle cell trait. SOCIAL HISTORY: The patient denies any alcohol, drugs or tobacco use. 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 PHYSICAL EXAMINATION: GENERAL: The patient is alert, oriented x3. He does appear to be in a moderate amount of discomfort secondary to pain. VITAL SIGNS: Temperature 98.9. Pulse 117, respiratory rate 19, O2 sat 100% on 3 liters nasal cannula, blood pressure 130/90. CARDIOVASCULAR: The patient is tachycardic with a systolic murmur. RESPIRATORY: Clear to auscultation bilaterally. No acute respiratory distress. ABDOMEN: Soft, bowel sounds present. EXTREMITIES: No lower extremity edema or cyanosis. LABORATORY FINDINGS: Reviewed. CBC reveals white blood cell count 16.9, hemoglobin 8.4, hematocrit 25.3, platelet count of 361. CMP reveals sodium 135 , potassium 4.0, chloride of 110, bicarbonate of 18 and a BUN of 12 and creatinine of 1.06, glucose of 127, calcium 8.0, total bilirubin of 3.5, AST 73 , ALT 74, alkaline phosphatase 106, total protein 7.5 and albumin of 3.1. Procalcitonin was initially elevated at 13.9 and down trended to 3.99. Lactate dehydrogenase was elevated at 451. Cardiac enzymes: CK-MB was 2.3. Troponin was 0.745 which down trended and 0.620. Chest x-ray revealed cardiomegaly with bilateral interstitial and alveolar parenchymal changes which seemed improved from a 2016 study. This is consistent with sickle cell disease. Initial EKG showed an incomplete right bundle branch block. EKG in the chart shows T-waves with the pattern consistent with right ventricular strain. No evidence of ST depression. Echocardiogram showed normal left ventricular size with ejection fraction visually estimated at 60-65%. There was paradoxical motion consistent with left ventricular volume overload and/or elevated right ventricular end diastolic pressure. There is a severely enlarged right ventricle cavity. Left atrium was normal in size. There is a structurally normal mitral valve. There is trace mitral regurgitation present. There is structurally normal aortic valve with no significant stenosis or regurgitation. There is severely elevated pulmonary artery pressure estimated at 82 mmHg. ASSESSMENT AND PLAN: 1. Elevated cardiac enzymes secondary to demand ischemia: Likely related to the sickle cell crisis. Patient with recent cardiac catheterization per report that was normal less than a year ago in [place]. Continue Xarelto due to recurrent history of pulmonary emboli. There is no further management needed from a cardiology standpoint at this time. 2. Sickle cell crisis: The patient is being treated with fluid hydration. Due to the significant nature of pulmonary hypertension and right ventricular strain, recommend decreasing fluids to 100 mL per hour to prevent further overload. Of note, BNP was elevated at 1100. 3. Severe pulmonary hypertension: The patient is on oxygen p.r.n. and is currently requiring it during this hospitalization. Of note, there is nothing further to do for treatment of this pulmonary hypertension secondary to sickle cell disease, aside from oxygen supplementation. The patient is following with a tmr teacher in [place]. Continue current treatment. Due to the degree of pulmonary hypertension at this age, prognosis is poor. 4. Recurrent pulmonary emboli: Continue Xarelto at current dose. Thank you for this consultation. [facility]
[2018-08-04] MEDS: HYDROmorphone 10 mg/100 ml CADD IV PRN (16:19)
[2018-08-04] MEDS: Acetaminophen 325 MG TAB PO PRN (21:08)
[2018-08-05] MEDS: Promethazine HCl 25 MG/ML VIAL SLOW IVP PRN ×6 (00:30→21:05)
[2018-08-05] MEDS: diphenhydrAMINE 50 MG/ML VIAL IVP PRN ×6 (00:32→21:08)
[2018-08-05] MEDS: Sodium Chloride 0.9% 1,000 ML IV SCH (00:44)
[2018-08-05 05:04] LABS: ALT (SGPT) 498 U/L (8-55); AST (SGOT) 550 U/L (5-34); Albumin 3.1 g/dL (3.5-5.0); Alkaline Phosphatase 121 U/L (40-150); Anion Gap 12 mmol/L (10-20); BUN (Urea Nitrogen) 13 mg/dL (8.9-20.6); Bilirubin, Total 5.7 mg/dL (0.2-1.2); Calc. Creatinine Clearance 139 mL/min (70-130); Calcium 8.3 mg/dL (7.8-10.44); Carbon Dioxide 20 mmol/L (22-29); Chloride 111 mmol/L (98-107); Estimated GFR-MDRD 81; Globulin 4.5 g/dL (2.4-3.5); Glucose 88 mg/dL (70-105); Potassium 4.5 mmol/L (3.5-5.1); Protein, Total 7.6 g/dL (6.0-8.3); Sodium 138 mmol/L (136-145)
[2018-08-05 06:00] LABS: Anisocytosis MODERATE=16-30 cells (100X) (0-5/hpf); Band 3 % (5-11); Hemoglobin 8.7 g/dL (14.0-18.0); Hemoglobin C Crystals SLIGHT (None Seen); Lymphocytes 48 % (21-51); MDiff Complete? YES; Mean Corpuscular HGB CONC 33.1 g/dL (32.0-36.0); Mean Corpuscular Hemoglobin 33.5 pg (27.0-31.0); Mean Platelet Volume 8.3 fL (7.4-10.4); Monocytes 3 % (0-10); Neutrophil 46 % (42-75); Nucleated RBC 16 % (0); Platelet Count 338 thou/uL (130-400); Poikilocytosis SLIGHT = 6-15 cells (100X) (0-5/hpf); Polychromasia MARKED = >4 cells (100X) (0-2/hpf); RBC Distribution Width 21.2 % (11.5-14.5); Red Blood Cell (RBC) Count 2.59 mill/uL (4.70-6.10); Spherocytes SLIGHT = 1-5 cells (100X) (None Seen); Target Cells SLIGHT = 2-5 cells (100X) (0-1/hpf)
--- NOTE | 2018-08-05 06:03 | PDOC.FM ---
Addendum entered and electronically signed by Ricardo Addison MD 08/05/18 07:19: Correction Physical Exam: CV: 3/6 systolic murmur, no rubs, cap refill <2 sec Original Note: - Subjective Subjective: Gelacio Malcolm seen at bedside this morning. States he is not feeling great, no big changes from yesterday. He had no acute events overnight. His blood cultures drawn from his mediport from [facility] grew Gram + cocci in chains and clusters yesterday, additional blood cultures from peripheral extremities drawn in this hospital pending. Dr. Torres has been consulted. He denies fever, chills, continues to complain of diffuse pain all over, but denies dyspnea or chest pain specifically. - Objective MAR Reviewed: Yes Vital Signs & Weight: Vital Signs (12 hours) Temp Pulse Resp BP Pulse Ox 08/05/18 04:00 98.1 F 117 H 22 H 113/75 96 08/05/18 00:00 100.1 F H 132 H 23 H 110/79 97 08/04/18 20:00 97 08/04/18 19:26 99.4 F 132 H 24 H 118/89 97 Weight Weight 97.069 kg I&O: 08/03/18 08/04/18 08/05/18 06:59 06:59 06:59 Intake Total 3095 5815 2004 Output Total 500 1500 3525 Balance 2251 8146 -2650 Result Diagrams: 08/05/18 04:21 08/05/18 04:21 <Ricardo Addison - Last Filed: 08/05/18 07:15> - Objective Vital Signs & Weight: Vital Signs (12 hours) Temp Pulse Resp BP Pulse Ox 08/05/18 12:00 97.7 F 136 H 20 117/87 91 L 08/05/18 08:00 101.2 F H 131 H 22 H 126/87 93 L Weight Weight 97.069 kg I&O: 08/04/18 08/05/18 08/06/18 06:59 06:59 06:59 Intake Total 5815 2744 Output Total 1500 4875 900 Balance 4315 -2136 -900 Result Diagrams: 08/05/18 04:21 08/05/18 04:21 <Miko Ro - Last Filed: 08/05/18 16:38> Phys Exam - Physical Examination Constitutional: NAD HEENT: moist MMs, sclera anicteric Neck: no JVD, supple, full ROM Respiratory: no wheezing, no rales, no rhonchi, clear to auscultation bilateral Cardiovascular: RRR, no significant murmur Gastrointestinal: soft, non-tender, no distention Musculoskeletal: no edema, pulses present Neurological: non-focal, moves all 4 limbs Psychiatric: normal affect, A&O x 3 <AzaelRicardo scales - Last Filed: 08/05/18 07:15> Dx/Plan (1) Sickle cell anemia with crisis Code(s): D57.00 - HB-SS DISEASE WITH CRISIS, UNSPECIFIED Status: Acute (2) Sepsis Code(s): A41.9 - SEPSIS, UNSPECIFIED ORGANISM Status: Acute (3) Hb-SS disease with acute chest syndrome Code(s): D57.01 - HB-SS DISEASE WITH ACUTE CHEST SYNDROME Status: Acute (4) Newly recognized murmur Code(s): R01.1 - CARDIAC MURMUR, UNSPECIFIED Status: Acute (5) Pain Code(s): R52 - PAIN, UNSPECIFIED Status: Acute (6) Elevated troponin Code(s): R74.8 - ABNORMAL LEVELS OF OTHER SERUM ENZYMES Status: Acute (7) NSTEMI (non-ST elevated myocardial infarction) Code(s): I21.4 - NON-ST ELEVATION (NSTEMI) MYOCARDIAL INFARCTION Status: Acute - Plan Plan: Gelacio Malcolm is a 28 year old M with PMH of sickle cell disease Hospital Day #2 being admitted for acute pain crisis with concern for acute chest syndrome Consults: 1) Cardiology-Dr. Cuadra 2) Pulmonology-Dr. Ayon 3) Anesthesiology 4 ) Hem/Onc-Dr. 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 10 mm opacity noted laterally at right upper lung - CXR: no evidence for acute cardiopulmonary disease - Pulm regimen: O2 supplementation, Levaquin Day 3 and Azithromycin Day 3 to cover for PNA CV: 3/6 systolic murmur not previously documented - Tachycardic, regular rhythm, 3/6 systolic murmur, not previously documented - Checking Echo, EF 60-65%, severely enlarged R ventricle, PA pressure of 82 mmHg - BP 126/68, HR 128 - Consider repeating imaging - EKG shows no ST elevations, but does show T wave inversions and ST depressions - Dr. Cuadra, Cardiology, has been consulted GI: - abd NT/ND, Normoactive BS - GI ppx: none - Diet: regular - I/Os: -1521 mL in last 12 hour, total balance +5.5 L - D5 1/2 NS @ 190 ml/hr discontinued yesterday - Na 138, K 4.5, Cl 111, HCO3 20 - Acute rise in AST/ALT to 550/198, likely 2/2 hepatic congestion 2/2 fluid overload with right heart failure 2/2 PAH, fluids stopped yesterday Heme: Hx of PE, vaso-occlusive sickle cell crisis - H/H - DVT Ppx: Xarelto - Continue home hydroxyurea - Takes methadone and morphine via mediport at home, held while on dilaudid health coach pump - Consulted Dr. Mcconnell, Hematology/Onc, who recommended to continue current management /Renal - voiding normally - unmeasured voids - Cr 1.07 - Avoiding NSAIDs, diuretics, or other nephrotoxic agents ID: sepsis with concern for pneumonia on CT of chest - Day 3 of Levaquin, Day 3 of Azithromycin - Tmax 100.1, Tachycardic 117 - WBC 30.0, 66% PMNs, 24% bands on admission, improved to 16.0 this morning - Procalcitonin down to 3.99 yesterday, recheck today - blood culture drawn by outside ER, positive for gram + cocci in clusters and chains - in house blood cultures pending - Flu swab negative - Negative viral respiratory panel Skin: - normal skin exam Lines: - L mediport present on arrival - L peripheral IV day 2 Dispo: >2 days Code status: Full Code <Ricardo Addison - Last Filed: 08/05/18 07:15> Attending Addendum - Attending Addendum Date/Time: 08/05/18 3218 I personally evaluated the patient and discussed the management with Dr. Addison. I agree with and repeated the History, Examination, Assessment and Plan documented above with any addition or exceptions noted below. BC with [facility] from [facility], but unfortunately seem to have only drawn one from the port. Repeat are NTD. He overall says he has improved, but appears worse today. He is tachypneic and has crackles on exam. No peripheral edema. Tachycardic, regular, prominent murmur with pulmonary tap. Acute chest + pain crisis in setting of pulm HTN est pressure > 80 makes him very difficult from a fluid perspective. His IVC fixed and dilated with no respiratory variation. He is up quite a few liters since the hospitalization and tolerated PO. Continue antibiotics and appreciate ID recommendations. For his pulm HTN we have requested records. In light of h/o PE I favor thromboembolic disease as contributing, and it sounds like he had a heart cath not too long ago. Will maintain sats > 90. Additional medications at this time may require greater expertise than we have available here. <Miko Ro - Last Filed: 08/05/18 16:38>
--- NOTE | 2018-08-05 08:08 | ADD-CON ---
ADDENDUM Mr. Malcolm, as outlined in the consultation dictated by Dr. Cagle, has a sickle cell disease resul ting in pulmonary hypertension. The left ventricular function is normal. Other complications of sickle cell disease include avascular necrosis of the right hip, lumbar spine and shoulder, and also history of recurrent pulmonary emboli, has pulmonary hypertension, on oxygen a t home. The troponin peak was 0.745 associated with this episode of chest pain. On echocardiogram, there is normal left ventricular function with severely enlarged right ventricle a nd markedly elevated pulmonary artery pressure. Therapy should be directed toward the sickle cell disease as well as oxygen. No other cardiac evalua tion is necessary. The patient has undergone cardiac catheterization per his report showing normal c oronary arteries. Long-term prognosis unfortunately appears unfavorable. He does have a cardiologis t in [place]. Please see the full consultation dictated by Marleny Cagle, the vice president medical affairs, working under m y supervision. I have read her note and also done a physical examination then spoke with Mr. Malcolm a nd I do agree with her assessment and plan as outlined in the chart.
[2018-08-05] MEDS ORDERED: VANCOMYCIN IVPB PRN (08:47)
--- NOTE | 2018-08-05 08:48 | PRG ---
DATE OF SERVICE: 08/05/2018 The patient still feels very poorly today. PHYSICAL EXAMINATION: VITAL SIGNS: His temperature is 101.2, pulse 131, respirations 22, O2 sat 93%, blood pressure 126/87 . HEENT: Unremarkable. NECK: No JVD. LUNGS: Clear. CARDIAC: S1, S2, tachycardic. ABDOMEN: Soft. EXTREMITIES: No edema. LABORATORY DATA: White blood cell count 16, hematocrit 26.2, platelet count 338. Sodium 138, potass ium 4.5, BUN 13, creatinine 1.1, AST 550, ALT 498. Apparently his cultures from his left Port-A-Cath are growing out gram positive cocci from [facility] emergency room. ASSESSMENT: 1. Sepsis with bacteremia - likely Staphylococcal. 2. Sickle cell crisis exacerbated by septicemia. 3. Transaminitis. RECOMMENDATIONS: 1. ID has been consulted. 2. I would go ahead and extend his antibiotic coverage and ask Dr. Torres how long he needs to be deion ated. 3. Consider GI consultation for the extreme transaminitis. 4. Leave in the IMCU as the patient continues to be overtly septic.
[2018-08-05] MEDS: Hydroxyurea 500 MG CAP PO SCH (08:51)
[2018-08-05] MEDS: Gabapentin 300 MG CAP PO SCH ×3 (08:52→23:11)
[2018-08-05] MEDS: Acetaminophen 325 MG TAB PO PRN (08:53)
[2018-08-05] MEDS: Rivaroxaban 10 MG TAB PO SCH (08:53)
[2018-08-05] MEDS: Promethazine 25 MG TAB PO SCH (08:54)
[2018-08-05] MEDS: diphenhydrAMINE 25 MG CAP PO SCH (08:54)
[2018-08-05] MEDS ORDERED: Vancomycin HCl 1 GM in Premix Bag 1 BAG IVPB SCH (09:00)
[2018-08-05] MEDS: Vancomycin HCl 1.5 GM in Sodium Chloride 0.9% 250 ML 300 ML IVPB SCH ×2 (09:46→16:52)
--- NOTE | 2018-08-05 12:21 | ULT ---
RIGHT UPPER QUADRANT ULTRASOUND: 08/05/2018 HISTORY: Transaminitis, sickle cell disease. COMPARISON: None. TECHNIQUE: Multiplanar michelle-scale sonographic imaging of the right upper quadrant is obtained. FINDINGS: The visualized pancreas is grossly unremarkable. The distal body and tail are obscured by bowel gas. The hepatic parenchyma is echogenic and heterogeneous, suggesting nonspecific hepatocellular diseas e. The gallbladder is nonvisualized, consistent with prior cholecystectomy. The grain handler reports a negative Garrison sign. There is hepatopetal flow documented within the main portal vein, which demonstrates pulsatility. Th e right kidney measures 10.9 cm in craniocaudal dimension and demonstrates no stone, hydronephrosis, or mass. The common bile duct measures 5 mm, within normal limits. IMPRESSION: Heterogeneity of the hepatic parenchyma, nonspecific. No intrahepatic biliary dilatation. POS: [facility]
[2018-08-05] MEDS ORDERED: Vancomycin HCl 1.5 GM in Premix Bag 1 BAG IVPB SCH (14:00)
--- NOTE | 2018-08-05 15:08 | CON ---
DATE OF CONSULTATION: 08/05/2018 REASON FOR CONSULTATION: Fever, bacteremia. HISTORY OF PRESENT ILLNESS: A 28-year-old who is known to us from prior visits , who has a history of severe sickle cell disease with frequent admissions, currently on hydroxyurea. I last saw him in 02/2016 when he had a case of fever and painful crises. 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 The last culture positivity in 02/2016 was determined to represent a contamination of the sample and was not treated and after that event , patient was mostly managed in [place] where he follows with his bar roller. He had a crisis in 11/2017 and then he continued doing relatively well. 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 This did not respond to his home medications and he went to [facility], had a CT scan there which showed the bone areas of aseptic necrosis, particularly in the shoulders, but no infiltrates in the lung area. One set of blood cultures was submitted and thus far results are discussed below. Currently, he still has pain all over his body. The pain he describes as of a different nature as this usual sickle cell syndrome associated pain because it is more diffuse, is not just localized in the bony structures and is also associated with more malaise, nausea, which he usually does not have, vomiting. Some headaches. No visual symptoms, sore throat, odynophagia, dysphagia, no toothache. The usual back pain, but not more than usual. The port site is not tender. No neurological changes. No diarrhea. PAST MEDICAL HISTORY: Sickle cell disease, avascular necrosis hip, lumbar and shoulder, pulmonary embolism, pulmonary hypertension. He has had a port placed at [facility] at the beginning of this year. PAST SURGICAL HISTORY: Cholecystectomy, tonsillectomy, right hip replacement, MediPort placement, embolectomy cranial artery. FAMILY HISTORY: Noncontributory. SOCIAL HISTORY: Never a smoker. 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 CURRENT MEDICATIONS: Tylenol, Orajel, Benadryl, Neurontin, Dilaudid, Hydrea, Levaquin, Narcan, Zofran, Protonix, Xarelto, vancomycin. PHYSICAL EXAMINATION: VITAL SIGNS: Temperature max 101.2, blood pressure 117/87, pulse 136, respiratory rate 20, O2 sat 91%. SKIN: Remarkable for the port in the left subclavian location which is not inflamed or tender. Patient is voiding spontaneously. No lymphadenopathy. He is a little bit diaphoretic. HEENT: Slight scleral icterus noted. Ocular movements are conjugate. Pupils are equal. Oral cavity is fairly normal. Teeth in pretty good shape. NECK: Supple, no jugular vein distention or carotid bruits. LUNGS: Symmetric air entry, no crackles or wheezing. HEART: S1, S2, regular rate. No S3, S4. ABDOMEN: Soft, not distended or tender. No ascites. No bladder distention. No tenderness, no organomegaly. EXTREMITIES: No joint inflammatory activity. He has tenderness on palpation of the muscles, limbs. Pulses 1+ in dorsalis pedis. NEUROLOGIC: He is awake, oriented. LABORATORY DATA: White cell count 30,000 down to 16,000, hemoglobin 9.4 and 8.7 , platelets 343, 66% neutrophils, 24% bands. The bands are down to 3%, now 16% nucleated RBCs. Chemistry with a sodium 138, creatinine 1.07, which is down from admission, AST is up from 26 to 550, ALT from 19 up to 498. In the past, patient has had elevations in transaminases, but of a much lesser magnitude than currently. His alkaline phosphatase was normal. Albumin was 3.2 and globulin 4.5. One set only seems to have been obtained at [facility] and this set was positive for coagulase negative Staphylococcus. Patient had an abdomen ultrasound done which demonstrates heterogeneity of hepatic parenchyma. No intrahepatic biliary dilatation. Echocardiogram demonstrated EF 60-65%, right ventricular volume overload. ASSESSMENT: 1. Severe sickle cell disease with frequent crises. 2. Chronic hydroxyurea treatment. 3. New onset of diffuse body aches with nausea and abnormal liver function tests with elevated transaminases. DISCUSSION: The patient seems to believe that this syndrome is different than the usual pains what he has experienced in the past. The organism isolated from the blood cultures could represent a contaminant of the sample. Unfortunately, it seems like they only henry one sample of cultures at [facility]. Two further samples have been drawn now in the hospital after admission. Patient is receiving antimicrobial therapy. The differential diagnosis includes a contamination of the sample versus true bacteremia due to colonization of the port. If the subsequent blood cultures are positive, then we would recommend treating as port colonization and try decolonization with vancomycin lock solution for 2 weeks plus IV vancomycin treatment. If subsequent cultures are negative, then it is possible that he has developed complications of hepatic dysfunction, sickle cell disease, which can manifest in patients with elevation of transaminases associated with fibrosis, cirrhosis and decreased liver function by adulthood. In about 10% of patients, the hepatic crisis can occur with abdominal pain, nausea, fever and jaundice and transaminase elevation. Viral hepatitis needs to be ruled out. He does not have evidence of biliary duct dilatation. Therefore, CBD obstruction is less likely. Hepatic congestion associated with pulmonary hypertension is another possibility in addition to the above-mentioned ones. So, will check a viral hepatitis serology, follow up the blood cultures and then decide on the need for vancomycin lock solution or not. MIKED
[2018-08-06] MEDS: Vancomycin HCl 1.5 GM in Sodium Chloride 0.9% 250 ML 300 ML IVPB SCH ×2 (00:43→19:05)
[2018-08-06] MEDS: diphenhydrAMINE 50 MG/ML VIAL IVP PRN ×5 (02:35→20:37)
[2018-08-06] MEDS: Promethazine HCl 25 MG/ML VIAL SLOW IVP PRN ×5 (02:39→20:32)
[2018-08-06 05:03] LABS: ALT (SGPT) 2510 U/L (8-55); AST (SGOT) 3480 U/L (5-34); Albumin 2.9 g/dL (3.5-5.0); Alkaline Phosphatase 123 U/L (40-150); Anion Gap 9 mmol/L (10-20); BUN (Urea Nitrogen) 16 mg/dL (8.9-20.6); Bilirubin, Total 8.2 mg/dL (0.2-1.2); Calc. Creatinine Clearance 144 mL/min (70-130); Carbon Dioxide 23 mmol/L (22-29); Chloride 111 mmol/L (98-107); Estimated GFR-MDRD 85; Globulin 4.4 g/dL (2.4-3.5); Glucose 140 mg/dL (70-105); Potassium 3.7 mmol/L (3.5-5.1); Protein, Total 7.3 g/dL (6.0-8.3); Sodium 139 mmol/L (136-145)
[2018-08-06 05:24] LABS: Hemoglobin 8.1 g/dL (14.0-18.0); Mean Corpuscular HGB CONC 33.3 g/dL (32.0-36.0); Mean Corpuscular Hemoglobin 33.7 pg (27.0-31.0); Mean Platelet Volume 9.1 fL (7.4-10.4); Platelet Count 232 thou/uL (130-400); Red Blood Cell (RBC) Count 2.39 mill/uL (4.70-6.10); White Blood Cell (WBC) Count 21.4 thou/uL (4.8-10.8)
[2018-08-06 05:25] LABS: Anisocytosis SLIGHT = 6-15 cells (100X) (0-5/hpf); Band 2 % (5-11); Hypochromia SLIGHT = 6-15 cells (100X) (0-5/hpf); Lymphocytes 26 % (21-51); MDiff Complete? YES; Monocytes 6 % (0-10); Neutrophil 66 % (42-75); Nucleated RBC 7 % (0); PLT Morphology Comment Appears Adequate; Polychromasia MODERATE = 3-4 cells (100X) (0-2/hpf); Spherocytes SLIGHT = 1-5 cells (100X) (None Seen); Target Cells SLIGHT = 2-5 cells (100X) (0-1/hpf)
--- NOTE | 2018-08-06 07:05 | PDOC.FM ---
- Subjective Subjective: Gelacio Malcolm seen at bedside this morning. He states that he is feeling slightly better this morning but he has continue to have nausea, requiring phenergan and benadryl every 4 hours. He had no acute events overnight and did not fever overnight, last fever was yesterday morning. IV vancomycin was initiated yesterday due to possible mediport infection. In house blood cultures pending. [facility] culture grew gram + cocci in clusters and chains. - Objective MAR Reviewed: Yes Vital Signs & Weight: Vital Signs (12 hours) Temp Pulse Resp BP Pulse Ox 08/06/18 04:00 99.0 F 111 H 20 137/77 93 L 08/05/18 23:36 99.8 F H 125 H 18 132/74 92 L 08/05/18 20:00 93 L 08/05/18 19:49 98.4 F 134 H 18 116/88 93 L Weight Weight 95.073 kg I&O: 08/05/18 08/06/18 08/07/18 06:59 06:59 06:59 Intake Total 2744 1220 Output Total 4875 900 Balance -2131 320 Result Diagrams: 08/06/18 04:30 08/06/18 04:30 Phys Exam - Physical Examination Constitutional: NAD HEENT: moist MMs Neck: supple, full ROM Respiratory: no wheezing, no rales, no rhonchi, clear to auscultation bilateral Cardiovascular: RRR, no significant murmur Gastrointestinal: positive bowel sounds diffuse TTP, no rigidity Musculoskeletal: no edema, pulses present Neurological: moves all 4 limbs Psychiatric: normal affect, A&O x 3 Dx/Plan (1) Sickle cell anemia with crisis Code(s): D57.00 - HB-SS DISEASE WITH CRISIS, UNSPECIFIED Status: Acute (2) Sepsis Code(s): A41.9 - SEPSIS, UNSPECIFIED ORGANISM Status: Acute (3) Hb-SS disease with acute chest syndrome Code(s): D57.01 - HB-SS DISEASE WITH ACUTE CHEST SYNDROME Status: Acute (4) Newly recognized murmur Code(s): R01.1 - CARDIAC MURMUR, UNSPECIFIED Status: Acute (5) Pain Code(s): R52 - PAIN, UNSPECIFIED Status: Acute (6) Elevated troponin Code(s): R74.8 - ABNORMAL LEVELS OF OTHER SERUM ENZYMES Status: Acute (7) NSTEMI (non-ST elevated myocardial infarction) Code(s): I21.4 - NON-ST ELEVATION (NSTEMI) MYOCARDIAL INFARCTION Status: Acute - Plan Plan: Gelacio Malcolm is a 28 year old M with PMH of sickle cell disease Hospital Day #2 being admitted for acute pain crisis with concern for acute chest syndrome Consults: 1) Cardiology-Dr. Cuadra 2) Pulmonology-Dr. Ayon 3) Anesthesiology 4 ) Hem/Onc-Dr. 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 10 mm opacity noted laterally at right upper lung - CXR: no evidence for acute cardiopulmonary disease - Pulm regimen: O2 supplementation, Levaquin Day 4 and vancomycin day 2 CV: 3/6 systolic murmur not previously documented - Tachycardic, regular rhythm, 3/6 systolic murmur, not previously documented - Checking Echo, EF 60-65%, severely enlarged R ventricle, PA pressure of 82 mmHg - BP 137/77, HR 111 - EKG shows no ST elevations, but does show T wave inversions and ST depressions - Dr. Cuadra, Cardiology, has been consulted GI: - abd NT/ND, Normoactive BS - GI ppx: none - Diet: regular - I/Os: -1521 mL in last 12 hour, total balance +5.1 L - D5 1/2 NS @ 190 ml/hr discontinued 08/04 - Na 138, K 4.5, Cl 111, HCO3 20 - Acute rise in AST/ALT to 3480/2510, likely 2/2 hepatic congestion 2/2 fluid overload with right heart failure 2/2 PAH, fluids stopped yesterday - Giving 20 IV lasix once due to poss hepatic congestion - Viral Hepatitis panel was negative Heme: Hx of PE, vaso-occlusive sickle cell crisis - H/H - DVT Ppx: Xarelto - Continue home hydroxyurea - Takes methadone and morphine via mediport at home, held while on dilaudid civil 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 Mcconnell, Hematology/Onc, who recommended to continue current management /Renal - voiding normally - Cr 1.03 - Avoiding NSAIDs, diuretics, or other nephrotoxic agents ID: sepsis with concern for pneumonia on CT of chest - Day 4 of Levaquin, D/c'd azithromycin on 08/05, Started IV vancomycin day #2 - Tmax 99.8, Tachycardic 111 - WBC 30.0, 66% PMNs, 24% bands on admission, initially improved, today uptrended to 21.4 - Procalcitonin down to 1.66 yesterday - blood culture drawn by outside ER, positive for gram + cocci in clusters and chains - in house blood cultures pending - Flu swab negative - Negative viral respiratory panel Skin: - normal skin exam Lines: - L mediport present on arrival - L peripheral IV day 3 Dispo: >2 days Code status: Full Code
[2018-08-06 08:08] LABS: INR-International Normal Ratio 3.4; PTT 39.9 SEC (22.9-36.1); Prothrombin Time 34.2 SEC (12.0-14.7)
--- NOTE | 2018-08-06 08:23 | PRG ---
DATE OF SERVICE: 08/06/2018 He is still having pain throughout his body. Does not feel much better. PHYSICAL EXAMINATION: VITAL SIGNS: Temperature is 99.0 with a T-max of 101.2 early yesterday, pulse 111, respirations 20, O2 sat 93%, blood pressure 137/77. HEENT: Remarkable for mildly icteric sclerae. NECK: No JVD. LUNGS: Clear. CARDIAC: S1, S2, tachycardic. ABDOMEN: Soft. EXTREMITIES: Edematous throughout. LABORATORY DATA: White blood cell count 21.4, hemoglobin 8.1, hematocrit 24.2, platelet count 232. Sodium 139, potassium 3.7, chloride 111, CO2 23, BUN 16, creatinine 1.0, glucose 140. AST at 3480, A LT 2510. ASSESSMENT: 1. Sickle cell crisis. 2. Possible bacteremia/sepsis syndrome. 3. Transaminitis. 4. Severely elevated pulmonary artery pressures. RECOMMENDATIONS: 1. Continue antibiotics 2. IV fluids and general supportive care. 3. Agree with hepatitis profile. 4. Consider GI involvement. 5. Consider transferring the patient to his sickle cell specialist in [place] at [facility].
[2018-08-06 08:49] LABS: Hep B Surf Ag Non-Reactive S/CO (NonReactive)
[2018-08-06 08:50] LABS: Hep C IgG Ab Non-Reactive (NonReactive)
[2018-08-06 08:51] LABS: Hep A IgM AB Non-Reactive (NonReactive)
[2018-08-06 08:56] LABS: Hepatitis B Core IgM Abs Non-Reactive (NonReactive)
[2018-08-06 09:02] LABS: Fibrinogen 466 mg/dL (253-463)
[2018-08-06] MEDS: diphenhydrAMINE 25 MG CAP PO SCH (09:31)
[2018-08-06] MEDS: Gabapentin 300 MG CAP PO SCH ×3 (09:31→20:39)
[2018-08-06] MEDS: Rivaroxaban 10 MG TAB PO SCH (09:32)
[2018-08-06] MEDS: Promethazine 25 MG TAB PO SCH (09:32)
[2018-08-06] MEDS: Hydroxyurea 500 MG CAP PO SCH (09:33)
[2018-08-06] MEDS: Vancomycin HCl 1.25 GM in Sodium Chloride 0.9% 250 ML 250 ML IVPB SCH ×2 (09:36→17:48)
[2018-08-06 10:15] LABS: HBSAg Index 0.31 S/CO (0-0.99)
[2018-08-06 10:17] LABS: Hep C Index 0.24 S/CO (0-0.79)
[2018-08-06 10:19] LABS: Hep A IgM S/CO 0.13 S/CO (0-0.79)
[2018-08-06 10:20] LABS: HBCM Index 0.07 S/CO (0-0.79)
[2018-08-06 10:21] LABS: Hep B Surf AB Reactive (NonReactive)
[2018-08-06 10:23] LABS: HBSAB Concentration 19.28 mIU/mL
[2018-08-06] MEDS: HYDROmorphone 10 mg/100 ml CADD IV PRN (10:24)
[2018-08-06] MEDS ORDERED: Furosemide 20 MG/2 ML VIAL SLOW IVP SCH (11:00)
--- NOTE | 2018-08-06 11:05 | PDOC.EVN ---
Event Note - Event Note Event Note: Seen and examined with Azael and I agree with his documentation except as below. Patient feels better than yesterday but still with significant pain. He has had worsening nausea as well. Denies cp. He remains ill appearing and tachypneic with scattered crackles. His abdomen is more protuberant and tender today. He has edema in the BLE that is new for him. He has worsening LFTs and coagulopathy. His O2 has been stable. His repeat BC are NTD. Continue antibiotics. d/c NOAC as it undergoes hepatic metabolism and he is receiving FFP per mckay. Gentle diuresis. I agree with Mckay and Puldi that he needs a higher level of care if possible. Will discuss with his primary specialist in [place].
[2018-08-06 12:08] LABS: FSP-Qualitative ABNORMAL (Normal); FSP-Semiquantitative >=40 & <80 mcg/mL (Less than 5)
[2018-08-06] MEDS ORDERED: ISOVUE-370 76%-LOCM 1 ML ONE (13:57)
--- NOTE | 2018-08-06 14:19 | CT ---
CT ABDOMEN WITH CONTRAST CT PELVIS WITH CONTRAST: DATE: 08/06/18 HISTORY: 28-year-old male with sickle cell disease, in sickle cell crisis, with acute liver failure, severe ab dominal pain, and nausea. COMPARISON: Noncontrast Ct of abdomen and pelvis of 06/12/11. TECHNIQUE: IV injection of iodinated contrast media: 100 mL [id number]. Oral contrast media: Not administered. FINDINGS: There is a new finding of two lobular noncalcified pulmonary lesions in the left lower lobe, in the u ppermost image slice, with each one measuring approximately 1.5 cm. Only their inferior portions are included on the images, and their full extent is unknown. No pleural effusion. Diffuse, heterogeneous sclerotic changes throughout all skeletal structures. Cardiomegaly with chamber dilation. There is a small pericardial effusion. Since the previous CT, the spleen has become very small, and hyperdense (calcified). It contains nume jay small cysts. The liver is mildly enlarged. There is diffuse, heterogeneous, patchy enhancement of the liver parenc hyma. This cannot be compared with the noncontrast previous CT. There is no intrahepatic or extrahepa tic biliary ductal dilation. Cholecystectomy clips in the gallbladder fossa again noted. No hydroneph rosis. Large number of shallow small cortical defects throughout the bilateral renal upper, mid, and lower poles, probably representing numerous scars from prior insults. Normal pancreas and adrenals. M ultiple mildly enlarged retroperitoneal, celiac, and lizzie hepatis lymph nodes. Again noted is the me tallic prosthesis for right hip replacement arthroplasty, causing streak artifact, partially obscurin g contents of the pelvic cavity. Normal urinary bladder. Small amount of free fluid along the right p elvic inlet. Tiny amount of perirectal fluid, especially in the presacral space, new since the previo us CT. No signs of acute colonic diverticulitis. No pneumoperitoneum. Normal abdominal aorta. No smal l bowel dilation. Numerous scattered minimally enlarged mesenteric lymph nodes. IMPRESSION: 1. Hepatomegaly and diffusely heterogeneous enhancement pattern of liver, consistent with nonspecifi c diffuse hepatocellular disease. 2. Numerous tiny bilateral renal cortical scars from previous insults (previous infarctions and/or p revious infections). 3. Atrophic, calcified, infarcted spleen. 4. Cardiomegaly and small pericardial effusion. 5. Extensive, diffuse skeletal changes of sickle cell disease. 6. Nonspecific two focal pulmonary nodular densities in the left lower lobe. 7. Status post cholecystectomy and total right hip replacement arthroplasty. 8. Minimal amount of free fluid. JNR POS: RENATAH
[2018-08-06] MEDS: Acetaminophen 325 MG TAB PO PRN (14:41)
[2018-08-06 14:42] LABS: Hemoglobin 9.2 g/dL (14.0-18.0); Mean Corpuscular HGB CONC 33.4 g/dL (32.0-36.0); Mean Corpuscular Hemoglobin 34.2 pg (27.0-31.0); Mean Platelet Volume 9.1 fL (7.4-10.4); Platelet Count 238 thou/uL (130-400); RBC Distribution Width 22.5 % (11.5-14.5); Red Blood Cell (RBC) Count 2.69 mill/uL (4.70-6.10)
[2018-08-06 14:49] LABS: White Blood Cell (WBC) Count 16.3 thou/uL (4.8-10.8)
[2018-08-06 14:57] LABS: Anisocytosis MODERATE=16-30 cells (100X) (0-5/hpf); Band 3 % (5-11); Howell Jolly Bodies SLIGHT = 1-2 cells (100X) (None Seen); Lymphocytes 28 % (21-51); MDiff Complete? YES; Macrocytosis SLIGHT = 6-15 cells (100X) (0-5/hpf); Monocytes 3 % (0-10); Neutrophil 65 % (42-75); Nucleated RBC 37 % (0); Ovalocytes SLIGHT = 2-5 cells (100X) (0-1/hpf); PLT Morphology Comment Appears Adequate; Poikilocytosis SLIGHT = 6-15 cells (100X) (0-5/hpf); Polychromasia MODERATE = 3-4 cells (100X) (0-2/hpf); Schistocytes SLIGHT = 2-5 cells (100X) (0-1/hpf); Spherocytes SLIGHT = 1-5 cells (100X) (None Seen); Target Cells SLIGHT = 2-5 cells (100X) (0-1/hpf); Tear Drops SLIGHT = 2-5 cells (100X) (0-1/hpf); Vacuoles SLIGHT
[2018-08-07] MEDS: Promethazine HCl 25 MG/ML VIAL SLOW IVP PRN ×6 (01:27→22:22)
[2018-08-07] MEDS: diphenhydrAMINE 50 MG/ML VIAL IVP PRN ×6 (01:29→22:23)
[2018-08-07] MEDS: Vancomycin HCl 1.25 GM in Sodium Chloride 0.9% 250 ML 250 ML IVPB SCH ×2 (01:34→10:27)
[2018-08-07 04:01] LABS: INR-International Normal Ratio 3.5; PTT 42.5 SEC (22.9-36.1); Prothrombin Time 35.4 SEC (12.0-14.7)
[2018-08-07 04:18] LABS: ALT (SGPT) 2053 U/L (8-55); AST (SGOT) 1299 U/L (5-34); Albumin 2.8 g/dL (3.5-5.0); Alkaline Phosphatase 120 U/L (40-150); Anion Gap 11 mmol/L (10-20); BUN (Urea Nitrogen) 12 mg/dL (8.9-20.6); Bilirubin, Total 5.7 mg/dL (0.2-1.2); Calc. Creatinine Clearance 145 mL/min (70-130); Calcium 7.6 mg/dL (7.8-10.44); Carbon Dioxide 22 mmol/L (22-29); Chloride 109 mmol/L (98-107); Estimated GFR-MDRD 88; Globulin 4.5 g/dL (2.4-3.5); Glucose 122 mg/dL (70-105); Potassium 3.5 mmol/L (3.5-5.1); Protein, Total 7.3 g/dL (6.0-8.3); Sodium 138 mmol/L (136-145)
[2018-08-07 04:22] LABS: Band 6 % (5-11); Eosinophils 3 % (0-10); Hemoglobin 8.4 g/dL (14.0-18.0); Lymphocytes 27 % (21-51); MDiff Complete? YES; Mean Corpuscular HGB CONC 33.4 g/dL (32.0-36.0); Mean Corpuscular Hemoglobin 33.5 pg (27.0-31.0); Mean Platelet Volume 9.7 fL (7.4-10.4); Monocytes 2 % (0-10); Neutrophil 62 % (42-75); Nucleated RBC 27 % (0); PLT Morphology Comment Appears Adequate; Platelet Count 188 thou/uL (130-400); Polychromasia SLIGHT = 2-3 cells (100X) (0-2/hpf); RBC Distribution Width 21.9 % (11.5-14.5); Red Blood Cell (RBC) Count 2.51 mill/uL (4.70-6.10); Target Cells SLIGHT = 2-5 cells (100X) (0-1/hpf)
[2018-08-07] MEDS: HYDROmorphone 10 mg/100 ml CADD IV PRN ×2 (05:51→23:48)
--- NOTE | 2018-08-07 05:54 | PDOC.FM ---
- Subjective Subjective: Gelacio Malcolm seen at bedside this morning. He states that he continues to have pain all over, predominantly in his joints. He had no acute events overnight. He did fever again yesterday afternoon around 1430. I attempted to contact his publicist at [facility], Dr. Zhang, yesterday. I left a message but have no received a return phone call. Patient was given 20 mg of lasix yesterday because of concern for hepatic congestion from right heart failure, his liver enzymes did improve this morning. - Objective MAR Reviewed: Yes Vital Signs & Weight: Vital Signs (12 hours) Temp Pulse Resp BP Pulse Ox 08/07/18 04:00 99.9 F H 128 H 24 H 116/79 94 L 08/06/18 23:54 99.4 F 126 H 20 120/77 91 L 08/06/18 19:46 95 08/06/18 19:34 98.8 F 113 H 20 102/84 94 L Weight Weight 95.073 kg I&O: 08/05/18 08/06/18 08/07/18 06:59 06:59 06:59 Intake Total 2744 2040 480 Output Total 4875 2660 Balance -2131 -620 480 Result Diagrams: 08/07/18 03:30 08/07/18 03:30 <Ricardo Addison - Last Filed: 08/07/18 10:27> - Objective Vital Signs & Weight: Vital Signs (12 hours) Temp Pulse Resp BP Pulse Ox 08/07/18 11:22 99.1 F 123 H 17 115/73 94 L 08/07/18 08:00 95 08/07/18 07:43 102.2 F H 129 H 23 H 124/62 95 08/07/18 04:00 99.9 F H 128 H 24 H 116/79 94 L Weight Weight 95.164 kg I&O: 08/06/18 08/07/18 08/08/18 06:59 06:59 06:59 Intake Total 2040 1650 840 Output Total 2660 1350 Balance -620 300 840 Result Diagrams: 08/07/18 03:30 08/07/18 03:30 <Miko Ro - Last Filed: 08/07/18 14:27> Phys Exam - Physical Examination Constitutional: NAD HEENT: moist MMs Neck: no JVD, supple, full ROM Respiratory: no wheezing, no rhonchi mild b/l rales Cardiovascular: RRR, no significant murmur Gastrointestinal: soft diffuse tenderness, no rigidity Musculoskeletal: no edema, pulses present Psychiatric: normal affect, A&O x 3 <Ricardo Addison - Last Filed: 08/07/18 10:27> Dx/Plan (1) Sickle cell anemia with crisis Code(s): D57.00 - HB-SS DISEASE WITH CRISIS, UNSPECIFIED Status: Acute (2) Sepsis Code(s): A41.9 - SEPSIS, UNSPECIFIED ORGANISM Status: Acute (3) Hb-SS disease with acute chest syndrome Code(s): D57.01 - HB-SS DISEASE WITH ACUTE CHEST SYNDROME Status: Acute (4) Newly recognized murmur Code(s): R01.1 - CARDIAC MURMUR, UNSPECIFIED Status: Acute (5) Pain Code(s): R52 - PAIN, UNSPECIFIED Status: Acute (6) Elevated troponin Code(s): R74.8 - ABNORMAL LEVELS OF OTHER SERUM ENZYMES Status: Acute (7) NSTEMI (non-ST elevated myocardial infarction) Code(s): I21.4 - NON-ST ELEVATION (NSTEMI) MYOCARDIAL INFARCTION Status: Acute - Plan Plan: Gelacio Malcolm is a 28 year old M with PMH of sickle cell disease Hospital Day #2 being admitted for acute pain crisis with concern for acute chest syndrome Consults: 1) Cardiology-Dr. Cuadra 2) Pulmonology-Dr. Ayon 3) Anesthesiology 4 ) Hem/Onc-Dr. Mcconnell 5) ID-Melissa VOICE INTERCEPT TECHNICIAN: - Alert and oriented X3, no focal deficits - Sedation/Meds: No sedation, current on Dilaudid SEWAGE DISPOSAL ENGINEER managed by Anesthesia - Benadryl and Phenergan for nausea and itching RESP: concern for pneumonia, hx of pulmonary HTN, mild acute chest syndrome - O2 sats 9-100% on 2-3L NC, no respiratory distress, lungs CTAB-improved from admission - ABG: not indicated at this time - CTA chest: no evidence for acute PE, patchy ground glass opacities bilaterally. 10 mm opacity noted laterally at right upper lung - CXR: no evidence for acute cardiopulmonary disease - Pulm regimen: O2 supplementation, Levaquin Day 5 and vancomycin day 3 CV: 3/6 systolic murmur not previously documented - Tachycardic, regular rhythm, 3/6 systolic murmur, not previously documented - Checking Echo, EF 60-65%, severely enlarged R ventricle, PA pressure of 82 mmHg - BP 137/77, HR 111 - EKG shows no ST elevations, but does show T wave inversions and ST depressions - Dr. Cuadra, Cardiology, has been consulted GI: - abd NT/ND, Normoactive BS - GI ppx: none - Diet: regular - I/Os: -1521 mL in last 12 hour, total balance +4.6 L - D5 1/ NS @ 190 ml/hr discontinued 08/04 - Na 138, K 4.5, Cl 111, HCO3 20 - Acute rise in AST/ALT to 3480/2510, likely 2/2 hepatic congestion 2/2 fluid overload with right heart failure 2/2 PAH, fluids stopped yesterday - Giving 20 IV lasix once due to poss hepatic congestion, has had mild improvement in LFTs, 129/2052 - Viral Hepatitis panel was negative Heme: Hx of PE, vaso-occlusive sickle cell crisis - H/H of 8.4/25.1, PT 35.4, PTT 42.5, INR 3.5. S/p 2 U FFP - DVT Ppx: Xarelto - Continue home hydroxyurea - Takes methadone and morphine via mediport at home, held while on dilaudid pie chef pump - Consulted Dr. Mcconnell, Hematology/Onc /Renal - voiding normally - Cr 1.00 - Avoiding NSAIDs, diuretics, or other nephrotoxic agents ID: sepsis with concern for pneumonia on CT of chest - Day 5 of Levaquin, D/c'd azithromycin on 08/05, Started IV vancomycin day #3 - Tmax 99.9, Tachycardic 128 - WBC 30.0, 66% PMNs, 24% bands on admission, currently 18.0 - Procalcitonin down to 1.66 yesterday - blood culture drawn by outside ER, positive for gram + cocci in clusters and chains - in house blood cultures show no growth to date - Flu swab negative - Negative viral respiratory panel Skin: - normal skin exam Lines: - L mediport present on arrival - L peripheral IV day 4 Dispo: >2 days Code status: Full Code <Ricardo Addison - Last Filed: 08/07/18 10:27> Attending Addendum - Attending Addendum Date/Time: 08/07/18 4680 I personally evaluated the patient and discussed the management with Dr. Addison. I agree with and repeated the History, Examination, Assessment and Plan documented above with any addition or exceptions noted below. Patient clinically with mild improvement today, but his condition remains quite guarded. His respiratory status is unchanged. His pain is being managed by anesthesia and dilaudid SEWAGE DISPOSAL ENGINEER was recently increased. He remains tachycardic and has a tenuous hemodynamic clinical picture. I do not believe he is sequestering due to his stable Hgb, and he responded reasonably to gentle diuresis and LFTs are improving, but INR remains elevated. Will hold NOAC pending clinical course per h/o recs. Continue antibiotics, still awaiting ID recs concerning port. Repeat PCT in AM. Will try to get ahold of his primary specialist in [place]. Need to reattempt getting records. It would be beneficial if we had a better idea of his recent workup. <Miko Ro - Last Filed: 08/07/18 14:27>
[2018-08-07] MEDS: Sodium Chloride 0.9% 1,000 ML IV SCH (06:08)
--- NOTE | 2018-08-07 08:32 | PRG ---
DATE OF SERVICE: 08/07/2018 He feels better, but he has spiked a fever to 102.2. PHYSICAL EXAMINATION: Temperature 102.2, pulse is 129, respirations 23, O2 sat 95% on 3 liters, bloo d pressure 124/62. HEENT: Mildly icteric sclerae. NECK: No JVD. LUNGS: Clear anteriorly. CARDIOVASCULAR: S1, S2 regular. ABDOMEN: Obese. EXTREMITIES: No edema. LABORATORY DATA: White blood cell count 18, hematocrit 25.1, platelet count 188. INR 3.5. Sodium 1 38, potassium 3.5, chloride 102, CO2 22, BUN 12, creatinine 1.0, glucose 122. ASSESSMENT: 1. Sickle cell crisis. 2. Transaminitis. 3. Possible bacteremia/sepsis syndrome - currently with elevated temperature. Cultures from 018 are negative to date. PLAN: 1. Continue IV antibiotics. 2. Anticoagulation is being held for the time being. 3. Continue general supportive care.
[2018-08-07] MEDS: Gabapentin 300 MG CAP PO SCH ×3 (08:52→20:14)
[2018-08-07] MEDS: diphenhydrAMINE 25 MG CAP PO SCH (08:53)
[2018-08-07] MEDS: Promethazine 25 MG TAB PO SCH (08:53)
[2018-08-07] MEDS: Ibuprofen 600 MG TAB PO PRN (08:53)
[2018-08-07] MEDS: Hydroxyurea 500 MG CAP PO SCH (08:54)
[2018-08-07 09:59] LABS: Vancomycin, Trough 21.6 ug/mL
[2018-08-07 10:36] LABS: Hepatitis A IgM ABS Negative (Negative); Hepatitis A Total ABS Positive (Negative)
[2018-08-07] MEDS: Vancomycin HCl 1 GM in Premix Bag 1 BAG IVPB SCH ×2 (11:56→20:14)
[2018-08-07 12:16] LABS: Hemoglobin A 0 % (96.4-98.8); Hemoglobin F 21.9 % (0.0-2.0); Hemoglobin S 73.1 % (0.0); Interpretation Note: (.)
--- NOTE | 2018-08-07 16:50 | PRG ---
DATE OF SERVICE: 08/07/2018 SUBJECTIVE: Feeling better today. Pain is less. No vomiting, no diarrhea, no respiratory symptoms. PHYSICAL EXAMINATION: VITAL SIGNS: T-max 102.2 at 7:00 a.m. this morning, BP 115/73, pulse 123, respirations 17. GENERAL APPEARANCE: Does not appear in any acute distress. HEENT: Ocular movements conjugate. Scleral icterus noted. Pupils are reactive. LUNGS: With symmetric air entry without crackles or wheezing. ABDOMEN: Mild to moderately distended with tenderness in the right upper quadrant. Hepatomegaly not ed. No bladder distention. No edema. NEUROLOGIC: Awake, oriented. No asterixis LABORATORY DATA AND IMAGING DATA: White cell count of 18,000, hemoglobin 8.4, platelets 188, 62% lexis trophils, 6% bands, 27% lymphocytes, nucleated RBCs at 27, sodium 138, glucose 130, AST peaked at 340 0, now it is down to 1200, ALT peaked at 2500, now down to 2000 and bilirubin went up to 8.2 and now 5.7, albumin 2.8. Hepatitis serology was negative except for hepatitis A which is old antibody, not recent infection. Microbiology with negative repeat blood cultures obtained here in the hospital. A bdomen and pelvis CT was ordered and it demonstrates hepatomegaly and diffusely heterogeneous enhance ment pattern of liver consistent with diffuse hepatocellular disease and other findings that was pres ent previously was cardiomegaly with a small pericardial effusion and extensive osseous changes. ASSESSMENT: 1. Severe sickle cell disease with frequent crises. 2. Hydroxyurea treatment. 3. Vomiting, fever, abdominal pain, hepatomegaly and diffuse body aches. 4. Coagulase negative Staph bacteremia, 1/3 samples. DISCUSSION: The coagulase negative Staph is more likely to represent contamination of sample than a true pathogen role here. I am more concerned with his liver abnormalities which are likely the cause of the patient's clinical decompensation may reflect a diffuse hepatocellular disease and either the hepatocellular necrosis or inflammation or both. Hydroxyurea has been known to be associated someti mes with hepatocellular dysfunction. Passive congestion of liver is another concern, although he has chronic passive congestion from pulmonary hypertension and one would not expect it to lead to this l evel of transaminase elevation, sickle cell disease itself can cause hepatocellular dysfunction, so a t this point those are the three most likely scenarios may be there are acting in concert to lead to the current clinical manifestations. At least at this point, I would discontinue hydroxyurea until t hese issues are clarified.
[2018-08-08] MEDS: Promethazine HCl 25 MG/ML VIAL SLOW IVP PRN ×6 (02:16→23:05)
[2018-08-08] MEDS: diphenhydrAMINE 50 MG/ML VIAL IVP PRN ×6 (02:16→23:05)
[2018-08-08 04:27] LABS: INR-International Normal Ratio 1.8; PTT 30.7 SEC (22.9-36.1); Prothrombin Time 20.9 SEC (12.0-14.7)
[2018-08-08 04:34] LABS: ALT (SGPT) 1671 U/L (8-55); AST (SGOT) 585 U/L (5-34); Albumin 2.8 g/dL (3.5-5.0); Alkaline Phosphatase 119 U/L (40-150); Anion Gap 11 mmol/L (10-20); BUN (Urea Nitrogen) 16 mg/dL (8.9-20.6); Bilirubin, Total 4.9 mg/dL (0.2-1.2); Calc. Creatinine Clearance 130 mL/min (70-130); Calcium 7.3 mg/dL (7.8-10.44); Carbon Dioxide 20 mmol/L (22-29); Chloride 109 mmol/L (98-107); Estimated GFR-MDRD 77; Globulin 4.8 g/dL (2.4-3.5); Glucose 128 mg/dL (70-105); Potassium 3.9 mmol/L (3.5-5.1); Protein, Total 7.6 g/dL (6.0-8.3); Sodium 136 mmol/L (136-145)
[2018-08-08] MEDS: Vancomycin HCl 1 GM in Premix Bag 1 BAG IVPB SCH ×3 (04:43→20:02)
[2018-08-08] MEDS: Ibuprofen 600 MG TAB PO PRN (04:50)
[2018-08-08 05:07] LABS: Band 4 % (5-11); Basophilic Stippling SLIGHT = 1-2 cells (100X) (None Seen); Eosinophils 2 % (0-10); Hemoglobin 9.1 g/dL (14.0-18.0); Hypochromia SLIGHT = 6-15 cells (100X) (0-5/hpf); Lymphocytes 20 % (21-51); MDiff Complete? YES; Macrocytosis SLIGHT = 6-15 cells (100X) (0-5/hpf); Mean Corpuscular HGB CONC 33.9 g/dL (32.0-36.0); Mean Corpuscular Hemoglobin 34.8 pg (27.0-31.0); Mean Platelet Volume 10.3 fL (7.4-10.4); Monocytes 1 % (0-10); Neutrophil 71 % (42-75); Nucleated RBC 33 % (0); PLT Morphology Comment Appears Adequate; Platelet Count 163 thou/uL (130-400); Polychromasia SLIGHT = 2-3 cells (100X) (0-2/hpf); RBC Distribution Width 22.6 % (11.5-14.5); Reactive Lymphocytes 1 % (0-10); Red Blood Cell (RBC) Count 2.63 mill/uL (4.70-6.10); Target Cells MODERATE= 6-15 cells (100X) (0-1/hpf); White Blood Cell (WBC) Count 11.6 thou/uL (4.8-10.8)
[2018-08-08] MEDS: diphenhydrAMINE 25 MG CAP PO SCH (08:54)
[2018-08-08] MEDS: Gabapentin 300 MG CAP PO SCH ×3 (08:54→20:02)
[2018-08-08] MEDS: Promethazine 25 MG TAB PO SCH (08:54)
[2018-08-08] MEDS: Hydroxyurea 500 MG CAP PO SCH (08:55)
--- NOTE | 2018-08-08 09:54 | PDOC.FM ---
- Subjective Subjective: MERCY overnight, patient reporting joint pain this AM relieved somewhat w/ heating pads used overnight. Notes he has been seen by anesthesia this morning but unsure of any STUDIO GRIP changes. Denies any worsening of his respiratory status. Reports fever yesterday. Otherwise no complaints. ROS: + Fever, + Joint pain - Objective MAR Reviewed: Yes Vital Signs & Weight: Vital Signs (12 hours) Temp Pulse Resp BP Pulse Ox 08/08/18 09:44 93 L 08/08/18 08:20 99.3 F 08/08/18 08:00 93 L 08/08/18 07:37 102.9 F H 128 H 25 H 115/81 93 L 08/08/18 06:17 100.5 F H 08/08/18 04:00 102.7 F H 130 H 23 H 120/80 95 08/08/18 03:57 97 08/08/18 00:00 98.8 F 124 H 22 H 120/86 97 Weight Weight 93.44 kg I&O: 08/07/18 08/08/18 08/09/18 06:59 06:59 06:59 Intake Total 1650 2962.0 Output Total 1350 1300 Balance 300 1662.0 Result Diagrams: 08/08/18 04:10 08/08/18 03:52 <Miko Lindsey - Last Filed: 08/08/18 09:53> - Objective Vital Signs & Weight: Vital Signs (12 hours) Temp Pulse Resp BP Pulse Ox 08/08/18 09:44 93 L 08/08/18 08:20 99.3 F 08/08/18 08:00 93 L 08/08/18 07:37 102.9 F H 128 H 25 H 115/81 93 L 08/08/18 06:17 100.5 F H 08/08/18 04:00 102.7 F H 130 H 23 H 120/80 95 08/08/18 03:57 97 08/08/18 00:00 98.8 F 124 H 22 H 120/86 97 Weight Weight 93.44 kg I&O: 08/07/18 08/08/18 08/09/18 06:59 06:59 06:59 Intake Total 1650 2962.0 Output Total 1350 1300 Balance 300 1662.0 Result Diagrams: 08/08/18 04:10 08/08/18 03:52 <Shannon Alvarado - Last Filed: 08/08/18 11:09> Phys Exam - Physical Examination Constitutional: NAD HEENT: PERRLA, moist MMs Respiratory: no wheezing, clear to auscultation bilateral Cardiovascular: RRR Gastrointestinal: soft Neurological: moves all 4 limbs Psychiatric: normal affect, A&O x 3 <Miko Lindsey - Last Filed: 08/08/18 09:53> Dx/Plan (1) Hb-SS disease with acute chest syndrome Code(s): D57.01 - HB-SS DISEASE WITH ACUTE CHEST SYNDROME Status: Acute Plan: Stable from a respiratory standpoint satting well on 3L NC, lungs CTA Concern for possible PNA, cont. w/ broad spectrum abx Cont. w/ supplemental O2 and PRN nebs Repeat Cx if continues to fever Pain control per anesthesia w/ dialudid STUDIO GRIP (2) Elevated liver function tests Code(s): R94.5 - ABNORMAL RESULTS OF LIVER FUNCTION STUDIES Status: Acute Plan: Concern for hepatic necrosis in the setting of Sickle Cell disease vs hepatic congestion vs shock liver vs iatrogenic from hydroxyurea use Will d/c hydroxyurea per ID reccomendations until clear etiology of pt's liver disease presents itself LFT's cont. to downtrend, will cont. to monitor (3) Bacteremia Code(s): R78.81 - BACTEREMIA Status: Acute Plan: 09/22 blood culture from [facility] growing presumed staph On Vanc and Levaquin ID consulted and feels this is likely contaminant However, patient continues to fever Repeat BCx neg 2/2 from 08/04 Will plan to cont. w/ broad spectrum abx in setting of continued fevers and repeat BCx if patient fevers again Pro-amanda stable No current leukocytosis (4) Normocytic anemia Code(s): D64.9 - ANEMIA, UNSPECIFIED Status: Chronic Plan: Stable from prior hospitalizations Do not feel patient is sequestering at this time in setting of stable hgb Will cont. to hold NOAC per H/O recs - Plan Plan: TOP TILE DECORATOR: - Alert and oriented X3, no focal deficits - Sedation/Meds: No sedation, current on Dilaudid STUDIO GRIP managed by Anesthesia - Benadryl and Phenergan for nausea and itching CV: 3/6 systolic murmur not previously documented - Tachycardic, regular rhythm, 3/6 systolic murmur, not previously documented - Checking Echo, EF 60-65%, severely enlarged R ventricle, PA pressure of 82 mmHg - BP 137/77, HR 111 - EKG shows no ST elevations, but does show T wave inversions and ST depressions - Dr. Cuadra, Cardiology, has been consulted GI: - abd NT/ND, Normoactive BS - GI ppx: none - Diet: regular - I/Os: -1521 mL in last 12 hour, total balance +4.6 L - D5 1/2 NS @ 190 ml/hr discontinued 08/04 - Na 138, K 4.5, Cl 111, HCO3 20 - Acute rise in AST/ALT to 3480/2510, likely 2/2 hepatic congestion 2/2 fluid overload with right heart failure 2/2 PAH, fluids stopped yesterday - Giving 20 IV lasix once due to poss hepatic congestion, has had mild improvement in LFTs, 1298/2052 - Viral Hepatitis panel was negative Heme: Hx of PE, vaso-occlusive sickle cell crisis - H/H of 8.4/25.1, PT 35.4, PTT 42.5, INR 3.5. 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 Mcconnell, Hematology/Onc /Renal - voiding normally - Cr 1.00 - Avoiding NSAIDs, diuretics, or other nephrotoxic agents ID: sepsis with concern for pneumonia on CT of chest - Day 5 of Levaquin, D/c'd azithromycin on 08/05, Started IV vancomycin day #3 - Tmax 99.9, Tachycardic 128 - WBC 30.0, 66% PMNs, 24% bands on admission, currently 18.0 - Procalcitonin down to 1.66 yesterday - blood culture drawn by outside ER, positive for gram + cocci in clusters and chains - in house blood cultures show no growth to date - Flu swab negative - Negative viral respiratory panel Skin: - normal skin exam Lines: - L mediport present on arrival - L peripheral IV day 4 Dispo: >2 days Code status: Full Code <Miko Lindsey - Last Filed: 08/08/18 09:53> Attending Addendum - Attending Addendum Date/Time: 08/08/18 1048 I personally evaluated the patient and discussed the management with Dr. Lindsey. I agree with the History, Examination, Assessment and Plan documented above with any addition or exceptions noted below. Pt had increased joint pain overnight. Continuing STUDIO GRIP. Pt continues to have intermittent fevers. Will reculture if he has fever again. Holding hydroxyurea per Dr. Torres' recommendations. Continue antibiotics. <Shannon Alvarado - Last Filed: 08/08/18 11:09>
[2018-08-08] MEDS: HYDROmorphone 10 mg/100 ml CADD IV PRN (11:46)
[2018-08-08 12:56] LABS: Vancomycin, Trough 20.9 ug/mL
--- NOTE | 2018-08-08 14:56 | PRG ---
DATE OF SERVICE: 08/08/2018 SUBJECTIVE: This is a 28-year-old gentleman. OBJECTIVE: VITAL SIGNS: Sats are 90 on 3 liters; temperature 99, maximum was 102.9 yesterday; respirations 18. GENERAL: He is still having chest pain, still nauseated. CHEST: Decreased breath sounds, no wheezing. CARDIAC: Sinus tachycardia. ABDOMEN: Soft. LABORATORY DATA: White count 11,000, H and H 9 and 26, platelet count 163. Chemistry profile is unr emarkable. AST is 585. He had a CT abdomen and pelvis yesterday, showed multiple abnormalities, but no obvious sign of infection. IMPRESSION: Sickle cell crisis, chronic pain, persistent fever. His antibiotics per Infectious Disease. This could all well be sickle cell disease. Continue supportive care. We will follow. Await cultures.
[2018-08-08] MEDS: Sodium Chloride 0.9% 1,000 ML IV SCH (23:05)
[2018-08-09] MEDS: Ibuprofen 600 MG TAB PO PRN ×2 (00:45→21:15)
[2018-08-09] MEDS: HYDROmorphone 10 mg/100 ml CADD IV PRN ×2 (02:59→18:55)
[2018-08-09] MEDS: diphenhydrAMINE 50 MG/ML VIAL IVP PRN ×6 (03:00→23:02)
[2018-08-09] MEDS: Promethazine HCl 25 MG/ML VIAL SLOW IVP PRN ×6 (03:00→23:02)
[2018-08-09 04:11] LABS: PTT 38.9 SEC (22.9-36.1)
[2018-08-09] MEDS: Vancomycin HCl 1 GM in Premix Bag 1 BAG IVPB SCH ×3 (04:11→11:52)
[2018-08-09 04:12] LABS: INR-International Normal Ratio 1.6; Prothrombin Time 18.8 SEC (12.0-14.7)
[2018-08-09 04:29] LABS: ALT (SGPT) 1147 U/L (8-55); AST (SGOT) 262 U/L (5-34); Albumin 2.6 g/dL (3.5-5.0); Alkaline Phosphatase 109 U/L (40-150); Anion Gap 11 mmol/L (10-20); BUN (Urea Nitrogen) 20 mg/dL (8.9-20.6); Bilirubin, Total 3.3 mg/dL (0.2-1.2); Calc. Creatinine Clearance 86 mL/min (70-130); Calcium 7.2 mg/dL (7.8-10.44); Carbon Dioxide 21 mmol/L (22-29); Chloride 107 mmol/L (98-107); Estimated GFR-MDRD 48; Globulin 4.6 g/dL (2.4-3.5); Glucose 118 mg/dL (70-105); Potassium 3.5 mmol/L (3.5-5.1); Protein, Total 7.2 g/dL (6.0-8.3); Sodium 135 mmol/L (136-145)
[2018-08-09 04:40] LABS: Band 5 % (5-11); Basophilic Stippling SLIGHT = 1-2 cells (100X) (None Seen); Hemoglobin 8.6 g/dL (14.0-18.0); Hypochromia MODERATE=16-30 cells (100X) (0-5/hpf); Lymphocytes 25 % (21-51); MDiff Complete? YES; Macrocytosis MODERATE=16-30 cells (100X) (0-5/hpf); Mean Corpuscular HGB CONC 33.8 g/dL (32.0-36.0); Mean Corpuscular Hemoglobin 34.4 pg (27.0-31.0); Mean Platelet Volume 10.8 fL (7.4-10.4); Microcytosis SLIGHT = 6-15 cells (100X) (0-5/hpf); Monocytes 5 % (0-10); Neutrophil 65 % (42-75); Nucleated RBC 17 % (0); PLT Morphology Comment Appears Adequate; Platelet Count 186 thou/uL (130-400); Polychromasia SLIGHT = 2-3 cells (100X) (0-2/hpf); Red Blood Cell (RBC) Count 2.49 mill/uL (4.70-6.10); Target Cells MODERATE= 6-15 cells (100X) (0-1/hpf); White Blood Cell (WBC) Count 17.4 thou/uL (4.8-10.8)
--- NOTE | 2018-08-09 07:58 | PDOC.FM ---
- Subjective Subjective: Pt w/ fever overnight w/ repeat BCx drawn. Pt reports continued intemrittent joint pain w/ control w/ AUTOMOTIVE BRAKE SPECIALIST pump and heating pads. Pt's parents in the room with him this AM. Also reports intermittent nausea controlled w/ PRN zofran. Denies any abdominal pain. Denies any SOB. - Objective MAR Reviewed: Yes Vital Signs & Weight: Vital Signs (12 hours) Temp Pulse Resp BP Pulse Ox 08/09/18 07:18 97.6 F 99 18 111/69 98 08/09/18 04:00 100.6 F H 93 21 H 94/78 94 L 08/09/18 00:00 101.7 F H 114 H 22 H 113/67 92 L Weight Weight 94.347 kg I&O: 08/08/18 08/09/18 08/10/18 06:59 06:59 06:59 Intake Total 2962.0 3074.8 Output Total 1300 1000 Balance 1662.0 2074.8 Result Diagrams: 08/09/18 03:34 08/09/18 03:34 <Miko Lindsey - Last Filed: 08/09/18 07:56> - Objective Vital Signs & Weight: Vital Signs (12 hours) Temp Pulse Resp BP Pulse Ox 08/09/18 11:43 98.9 F 117 H 20 124/99 H 97 08/09/18 08:00 98 08/09/18 07:18 97.6 F 99 18 111/69 98 08/09/18 04:00 100.6 F H 93 21 H 94/78 94 L Weight Weight 94.347 kg I&O: 08/08/18 08/09/18 08/10/18 06:59 06:59 06:59 Intake Total 2962.0 3074.8 Output Total 1300 1000 Balance 1662.0 2074.8 Result Diagrams: 08/09/18 03:34 08/09/18 03:34 <Shannon Alvarado - Last Filed: 08/09/18 15:09> Phys Exam - Physical Examination Constitutional: NAD Respiratory: clear to auscultation bilateral Cardiovascular: RRR Gastrointestinal: soft, non-tender, no distention Neurological: moves all 4 limbs Psychiatric: A&O x 3 <Miko Lindsey - Last Filed: 08/09/18 07:56> Dx/Plan (1) Hb-SS disease with acute chest syndrome Code(s): D57.01 - HB-SS DISEASE WITH ACUTE CHEST SYNDROME Status: Acute Plan: Stable from a respiratory standpoint satting well on 3L NC, lungs CTA Concern for possible PNA, cont. w/ broad spectrum abx as patient fevered again overnight Cont. w/ supplemental O2 and PRN nebs Will repeat procalcitonin this AM 2/2 fever and bump in WBC overnight Repeat Cx if continues to fever Pain control per anesthesia w/ dialudid AUTOMOTIVE BRAKE SPECIALIST (2) Elevated liver function tests Code(s): R94.5 - ABNORMAL RESULTS OF LIVER FUNCTION STUDIES Status: Acute Plan: Concern for hepatic necrosis in the setting of Sickle Cell disease vs hepatic congestion vs shock liver vs iatrogenic from hydroxyurea use Cont. to hold hydroxyurea per ID recs LFT's cont. to downtrend, will cont. to monitor (3) Bacteremia Code(s): R78.81 - BACTEREMIA Status: Acute Plan: 09/22 blood culture from [facility] growing presumed staph On Vanc and Levaquin ID consulted and feels this is likely contaminant However, patient continues to fever Repeat BCx neg 2/2 from 08/04 Will plan to cont. w/ broad spectrum abx in setting of continued fevers and repeat BCx if patient fevers again Repeat BCx obtained yesterday Repeat Procal w/ fever and elevation of WBC today (4) Normocytic anemia Code(s): D64.9 - ANEMIA, UNSPECIFIED Status: Chronic Plan: Stable from prior hospitalizations Do not feel patient is sequestering at this time in setting of stable hgb Will cont. to hold NOAC per H/O recs <Miko Lindsey - Last Filed: 08/09/18 07:56> Attending Addendum - Attending Addendum Date/Time: 08/09/18 0808 I personally evaluated the patient and discussed the management with Dr. Lindsey. I agree with the History, Examination, Assessment and Plan documented above with any addition or exceptions noted below. The patient has been recultured after spiking another fever and cultures are pending. Liver enzymes are downtrending. Now with BRENDA. WBC increased today. Will continue current management and wait on cultures. Trend Cr and WBC. <Shannon Alvarado - Last Filed: 08/09/18 15:09>
[2018-08-09] MEDS: diphenhydrAMINE 25 MG CAP PO SCH (09:02)
[2018-08-09] MEDS: Promethazine 25 MG TAB PO SCH (09:02)
[2018-08-09] MEDS: Gabapentin 300 MG CAP PO SCH ×3 (09:02→21:15)
[2018-08-09 11:45] LABS: Vancomycin, Trough 31.7 ug/mL
--- NOTE | 2018-08-09 12:04 | PRG ---
DATE OF SERVICE: 08/09/2018 SUBJECTIVE: This morning, he is awake, responsive, still having pain, feeling fever. OBJECTIVE: VITALS: His maximal temperature 98.7, sats are 98 on 3 liters, blood pressure 111/69, respirations 1 8. CHEST: Rhonchi. No wheezing. CARDIAC: Normal S1, S2. ABDOMEN: Soft, no masses. LABORATORY DATA: White count is 17,000, H and H 8 and 25, platelet count is normal. INR is 1.6. El ectrolytes are normal. IMPRESSION: 1. Sickle cell crisis. 2. Chronic pain. I doubt he has an infection. Continue supportive care and PT.
--- NOTE | 2018-08-09 19:32 | RAD ---
FRONTAL RADIOGRAPH CHEST: 08/09/2018 HISTORY: Acute chest syndrome. Crackles on examination. COMPARISON: 03/10/2016 FINDINGS: A CT injectable left-sided Port-A-Cath is present, distal tip overlying the region of the cavoatrial junction. The bones are diffusely sclerotic, consistent with the patient's history of sickle cell an emia. There is mild hazy increased density in the perihilar regions, left greater than right, improv ed since prior imaging. No lobar consolidation or alveolar edema. IMPRESSION: Chronic findings as detailed above. Mild persistent interstitial prominence in the perihilar regions with no lobar consolidation or alveolar edema. POS: [facility]
--- NOTE | 2018-08-09 20:46 | PRG ---
DATE OF SERVICE: 08/09/2018 SUBJECTIVE: Mr. Malcolm is feeling a little bit better, but not a lot. Still having tenderness in the right upper quadrant area. Still with pain, but not as much as before. The pain is now mostly in the joints of the lower extremities. No back pain. No respiratory symptoms. No diarrhea. OBJECTIVE: VITAL SIGNS: Temperature max 101.7 early this morning and now is 100.2, blood pressure 111/83, pulse is 117, O2 sat 92%. GENERAL: He does not appear in acute distress, still chronically ill-appearing , oriented. HEENT: Ocular movements conjugate. Slight scleral icterus. LUNGS: Symmetric clear breath sounds. HEART: S1, S2 regular rate. ABDOMEN: Soft, not distended. Tenderness in the right upper quadrant with hepatomegaly noted. LABORATORY DATA: The white cell count is at 17.4, hemoglobin 8.6, platelets 186 with 65% neutrophils, 5% lymphocytes. Sodium 135, creatinine 1.68, bilirubin 3.3. AST down to 262, ALT down to 1147. Cultures are negative. ASSESSMENT AND DISCUSSION: Severe sickle cell anemia with hepatocellular dysfunction associated with a variety of factors of which the sickling and liver damage from it, as well as congestive changes leading to hepatic injury the more likely scenario here. Hydroxyurea liver damage is less likely. We will go ahead and discontinue vancomycin at this point in time, since I think that the organism isolated from the [place] sample is more likely to represent a contamination of the sample. [facility]
[2018-08-09] MEDS ORDERED: Vancomycin HCl 1 GM in Premix Bag 1 BAG IVPB SCH (23:00)
[2018-08-09] MEDS: Sodium Chloride 0.9% 1,000 ML IV SCH (23:07)
[2018-08-10] MEDS: Promethazine HCl 25 MG/ML VIAL SLOW IVP PRN ×5 (03:04→21:20)
[2018-08-10] MEDS: diphenhydrAMINE 50 MG/ML VIAL IVP PRN ×5 (03:04→21:19)
[2018-08-10 04:15] LABS: INR-International Normal Ratio 1.4; PTT 38.6 SEC (22.9-36.1); Prothrombin Time 17.4 SEC (12.0-14.7)
[2018-08-10 04:31] LABS: ALT (SGPT) 875 U/L (8-55); AST (SGOT) 144 U/L (5-34); Albumin 2.6 g/dL (3.5-5.0); Alkaline Phosphatase 107 U/L (40-150); Anion Gap 12 mmol/L (10-20); BUN (Urea Nitrogen) 17 mg/dL (8.9-20.6); Bilirubin, Total 2.8 mg/dL (0.2-1.2); Calc. Creatinine Clearance 83 mL/min (70-130); Calcium 7.7 mg/dL (7.8-10.44); Carbon Dioxide 20 mmol/L (22-29); Chloride 111 mmol/L (98-107); Estimated GFR-MDRD 46; Globulin 4.9 g/dL (2.4-3.5); Glucose 110 mg/dL (70-105); Potassium 3.9 mmol/L (3.5-5.1); Protein, Total 7.5 g/dL (6.0-8.3); Sodium 139 mmol/L (136-145)
[2018-08-10 04:54] LABS: Hemoglobin 8.3 g/dL (14.0-18.0); Hypochromia SLIGHT = 6-15 cells (100X) (0-5/hpf); Lymphocytes 34 % (21-51); MDiff Complete? YES; Macrocytosis SLIGHT = 6-15 cells (100X) (0-5/hpf); Mean Corpuscular HGB CONC 33.1 g/dL (32.0-36.0); Mean Corpuscular Hemoglobin 34.1 pg (27.0-31.0); Mean Platelet Volume 10.7 fL (7.4-10.4); Monocytes 2 % (0-10); Neutrophil 64 % (42-75); Nucleated RBC 22 % (0); PLT Morphology Comment Appears Adequate; Platelet Count 191 thou/uL (130-400); Polychromasia MODERATE = 3-4 cells (100X) (0-2/hpf); RBC Distribution Width 23.1 % (11.5-14.5); Red Blood Cell (RBC) Count 2.43 mill/uL (4.70-6.10); Target Cells SLIGHT = 2-5 cells (100X) (0-1/hpf); White Blood Cell (WBC) Count 15.9 thou/uL (4.8-10.8)
--- NOTE | 2018-08-10 06:52 | PDOC.FM ---
- Subjective Subjective: 28 yo M admitted for sickle cell crisis. Patient continues to periodically fever , TMax over night was 101.3. Patient states that pain is improving, however still comes in waves. Most of his pain is in his joints and abdomen. Denies new symptoms. There were no acute events over night. - Objective MAR Reviewed: Yes Vital Signs & Weight: Vital Signs (12 hours) Temp Pulse Resp BP Pulse Ox 08/10/18 03:47 97.1 F L 112 H 18 119/81 96 08/10/18 00:00 100.1 F H 08/09/18 23:35 120 H 22 H 114/81 91 L 08/09/18 20:35 99.6 F 08/09/18 20:00 93 L 08/09/18 19:58 101.3 F H 119 H 20 123/86 93 L Weight Weight 94.801 kg I&O: 08/08/18 08/09/18 08/10/18 06:59 06:59 06:59 Intake Total 2962.0 3074.8 1641.7 Output Total 1300 1000 3200 Balance 1662.0 2074.8 -1558.3 Result Diagrams: 08/10/18 03:36 08/10/18 03:36 Radiology Reviewed by me: Yes <Balwinder Elliott - Last Filed: 08/10/18 06:49> - Objective Vital Signs & Weight: Vital Signs (12 hours) Temp Pulse Resp BP Pulse Ox 08/10/18 08:00 94 L 08/10/18 07:28 97.6 F 98 18 101/84 98 08/10/18 03:47 97.1 F L 112 H 18 119/81 96 08/10/18 00:00 100.1 F H 08/09/18 23:35 120 H 22 H 114/81 91 L Weight Weight 94.801 kg I&O: 08/09/18 08/10/18 08/11/18 06:59 06:59 06:59 Intake Total 3074.8 1707.7 Output Total 1000 3200 Balance 2074.8 -1492.3 Result Diagrams: 08/10/18 03:36 08/10/18 03:36 <Mamie Cano - Last Filed: 08/10/18 10:50> Phys Exam - Physical Examination Constitutional: NAD HEENT: PERRLA, moist MMs Mild scleral icterus Neck: no JVD Respiratory: clear to auscultation bilateral Cardiovascular: RRR Diffuse TTP Musculoskeletal: no edema Neurological: non-focal, moves all 4 limbs Psychiatric: normal affect, A&O x 3 Skin: no rash <Balwinder Elliott - Last Filed: 08/10/18 06:49> Dx/Plan (1) Hb-SS disease with acute chest syndrome Code(s): D57.01 - HB-SS DISEASE WITH ACUTE CHEST SYNDROME Status: Acute (2) BRENDA (acute kidney injury) Code(s): N17.9 - ACUTE KIDNEY FAILURE, UNSPECIFIED Status: Acute (3) Pulmonary hypertension Code(s): I27.20 - PULMONARY HYPERTENSION, UNSPECIFIED Status: Chronic (4) Elevated liver function tests Code(s): R94.5 - ABNORMAL RESULTS OF LIVER FUNCTION STUDIES Status: Acute (5) Elevated troponin Code(s): R74.8 - ABNORMAL LEVELS OF OTHER SERUM ENZYMES Status: Resolved (6) Bacteremia Code(s): R78.81 - BACTEREMIA Status: Ruled-out (7) Normocytic anemia Code(s): D64.9 - ANEMIA, UNSPECIFIED Status: Chronic (8) Coagulopathy Status: Acute (9) Hyperbilirubinemia Code(s): E80.6 - OTHER DISORDERS OF BILIRUBIN METABOLISM Status: Acute - Plan Plan: Sickle cell crisis - patient is slowly improving day over day. Still in significant pain and in need of WASTE SALVAGER - Continue O2 by NC, will wean as symptoms resolve. BRENDA - renal function improving, this is most likely related to congestion related to crisis. Continue to monitor Pulmonary HTN - related to severe sickle cell disease. Will need to be followed in outpatient setting Bacteremia - multiple cx have been negative following initial 09/22 positive in outside ED - no abx at this time. ID following - Procal trending downward without abx, pointing to a non infectious etiology Elevated LFT - likely 2/2 hepatic congestion. Improving day over day, continue to monitor Coagulopathy - Improving. Related to congestion. Continue to monitor Anemia - stable Hyperbilirubinemia - improving Dispo: patient is currently stable and improving. penitentiary prognosis is likely poor related to pulmonary HTN. Likely LOS >48 hours <Balwinder Elliott - Last Filed: 08/10/18 06:49> Attending Addendum - Attending Addendum Date/Time: 08/10/18 1047 I personally evaluated the patient and discussed the management with Dr. Elliott I agree with the History, Examination, Assessment and Plan documented above with any addition or exceptions noted below- Patient reports pain mostly in joints now. Appetite beginning to return. Tolerating liquids well. Tm 101.3. VSS. A/P: 1) Sickle cell crisis- slowly improving. Continue O2 , hydration, pain medications as per anesthesia. 2) Fever- most likely secondary to sickle cell crisis. Blood cultures negative to date. IV abx stopped yesterday. 3) Transamninitis - improving. Continue to monitor. 4) BRENDA- continue to monitor. <Mamie Cano - Last Filed: 08/10/18 10:50>
[2018-08-10] MEDS: Promethazine 25 MG TAB PO SCH (09:22)
[2018-08-10] MEDS: Gabapentin 300 MG CAP PO SCH ×3 (09:22→21:19)
[2018-08-10] MEDS: diphenhydrAMINE 25 MG CAP PO SCH (09:22)
[2018-08-10] MEDS: HYDROmorphone 10 mg/100 ml CADD IV PRN (12:43)
[2018-08-10] MEDS: Ibuprofen 600 MG TAB PO PRN (21:19)
[2018-08-11] MEDS: HYDROmorphone 10 mg/100 ml CADD IV PRN (00:27)
[2018-08-11] MEDS: diphenhydrAMINE 50 MG/ML VIAL IVP PRN ×6 (01:21→21:39)
[2018-08-11] MEDS: Promethazine HCl 25 MG/ML VIAL SLOW IVP PRN ×6 (01:22→21:38)
[2018-08-11 04:35] LABS: ALT (SGPT) 672 U/L (8-55); AST (SGOT) 114 U/L (5-34); Albumin 2.8 g/dL (3.5-5.0); Alkaline Phosphatase 112 U/L (40-150); Anion Gap 13 mmol/L (10-20); BUN (Urea Nitrogen) 15 mg/dL (8.9-20.6); Bilirubin, Total 2.5 mg/dL (0.2-1.2); Calc. Creatinine Clearance 90 mL/min (70-130); Calcium 7.6 mg/dL (7.8-10.44); Carbon Dioxide 18 mmol/L (22-29); Chloride 108 mmol/L (98-107); Estimated GFR-MDRD 51; Globulin 5.1 g/dL (2.4-3.5); Glucose 95 mg/dL (70-105); Protein, Total 7.9 g/dL (6.0-8.3); Sodium 135 mmol/L (136-145)
[2018-08-11 04:50] LABS: Hemoglobin 8.4 g/dL (14.0-18.0); Lymphocytes 36 % (21-51); MDiff Complete? YES; Mean Corpuscular HGB CONC 32.3 g/dL (32.0-36.0); Mean Corpuscular Hemoglobin 33.8 pg (27.0-31.0); Mean Platelet Volume 10.7 fL (7.4-10.4); Monocytes 1 % (0-10); Neutrophil 63 % (42-75); Nucleated RBC 18 % (0); PLT Morphology Comment Appears Adequate; Platelet Count 208 thou/uL (130-400); Red Blood Cell (RBC) Count 2.49 mill/uL (4.70-6.10); White Blood Cell (WBC) Count 13.9 thou/uL (4.8-10.8)
[2018-08-11] MEDS: Sodium Chloride 0.9% 1,000 ML IV SCH (05:27)
--- NOTE | 2018-08-11 06:55 | PDOC.FM ---
- Subjective Subjective: 28 yo M here with sickle cell crisis. States that pain is improving a little each day. He mostly needs is MICROBIOLOGY TEACHER at night. He still complains of cold sweats and fever. No new complaints. He has been walking and eating without issue. No acute events over night - Objective MAR Reviewed: Yes Vital Signs & Weight: Vital Signs (12 hours) Temp Pulse Resp BP Pulse Ox 08/11/18 04:00 98.2 F 107 H 18 105/71 97 08/11/18 00:00 100.6 F H 100 18 116/80 93 L 08/10/18 22:22 99.8 F H 08/10/18 20:00 100.2 F H 98 18 125/88 92 L Weight Weight 94.801 kg I&O: 08/09/18 08/10/18 08/11/18 06:59 06:59 06:59 Intake Total 3074.8 1707.7 776.2 Output Total 1000 3200 2200 Balance 2074.8 -1492.3 -1423.8 Result Diagrams: 08/11/18 03:50 08/11/18 03:50 <Balwinder Elliott - Last Filed: 08/11/18 06:53> - Objective Vital Signs & Weight: Vital Signs (12 hours) Temp Pulse Resp BP Pulse Ox 08/11/18 08:10 98 08/11/18 07:25 97.6 F 100 16 122/79 95 08/11/18 04:00 98.2 F 107 H 18 105/71 97 08/11/18 00:00 100.6 F H 100 18 116/80 93 L Weight Weight 94.801 kg I&O: 08/10/18 08/11/18 08/12/18 06:59 06:59 06:59 Intake Total 1707.7 776.2 Output Total 3200 2200 Balance -1492.3 -1423.8 Result Diagrams: 08/11/18 03:50 08/11/18 03:50 <Mamie Cano - Last Filed: 08/11/18 11:05> Phys Exam - Physical Examination Constitutional: NAD mild icterus Neck: no nodes Respiratory: clear to auscultation bilateral Cardiovascular: RRR Systolic murmur Gastrointestinal: soft, positive bowel sounds Mild diffuse TTP Musculoskeletal: no edema Neurological: moves all 4 limbs Psychiatric: normal affect, A&O x 3 Skin: no rash <Balwinder Elliott - Last Filed: 08/11/18 06:53> Dx/Plan (1) Hb-SS disease with acute chest syndrome Code(s): D57.01 - HB-SS DISEASE WITH ACUTE CHEST SYNDROME Status: Acute (2) BRENDA (acute kidney injury) Code(s): N17.9 - ACUTE KIDNEY FAILURE, UNSPECIFIED Status: Acute (3) Pulmonary hypertension Code(s): I27.20 - PULMONARY HYPERTENSION, UNSPECIFIED Status: Chronic (4) Elevated liver function tests Code(s): R94.5 - ABNORMAL RESULTS OF LIVER FUNCTION STUDIES Status: Acute (5) Elevated troponin Code(s): R74.8 - ABNORMAL LEVELS OF OTHER SERUM ENZYMES Status: Resolved (6) Bacteremia Code(s): R78.81 - BACTEREMIA Status: Ruled-out (7) Normocytic anemia Code(s): D64.9 - ANEMIA, UNSPECIFIED Status: Chronic (8) Coagulopathy Status: Acute (9) Hyperbilirubinemia Code(s): E80.6 - OTHER DISORDERS OF BILIRUBIN METABOLISM Status: Acute - Plan Plan: Sickle cell crisis - patient continues to slowly improve. Will work on PO pain control. Discussed the need to wean off of MICROBIOLOGY TEACHER in order to move out of MICU. - Continue O2 by NC, will wean as symptoms resolve. BRENDA - improved from yesterday, continue to monitor. Pulmonary HTN - related to severe sickle cell disease. Will need to be followed in outpatient setting Elevated LFT - likely 2/2 hepatic congestion. Improving day over day, continue to monitor Coagulopathy - Improving. Related to congestion. Continue to monitor Anemia - stable Hyperbilirubinemia - improving Bacteremia - likely contaminate from outside ED. No abx at this time Dispo: patient is currently stable and improving. 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 Likely LOS >48 hours <Balwinder Elliott - Last Filed: 08/11/18 06:53> Attending Addendum - Attending Addendum Date/Time: 08/11/18 1100 I personally evaluated the patient and discussed the management with Dr. Elliott I agree with the History, Examination, Assessment and Plan documented above with any addition or exceptions noted below- Patient reports pain improving. States pain mostly in lower extremities now and primarily at night. Tm 100.6 VSS. A/P: 1) Sickle cell crisis- slowly improving; continue pain meds, O2, encourage po fluids. 2) Transaminitis- improving. Continue to monitor. 3) Fever - downtrending; continue to monitor. <Mamie Cano - Last Filed: 08/11/18 11:05>
[2018-08-11] MEDS: diphenhydrAMINE 25 MG CAP PO SCH (09:29)
[2018-08-11] MEDS: Gabapentin 300 MG CAP PO SCH ×3 (09:33→20:34)
[2018-08-11] MEDS: Promethazine 25 MG TAB PO SCH (09:33)
--- NOTE | 2018-08-11 11:15 | PRG ---
DATE OF SERVICE: 08/11/2018 SUBJECTIVE: He is still experiencing some pain and some intermittent low grade fever. PHYSICAL EXAMINATION: VITAL SIGNS: Temperature 97.6, but got as high as 100.6 last night, pulse 100, O2 sat 98% on 3 liter s, blood pressure 122/79. HEENT: Unremarkable. NECK: No JVD. CHEST: Clear. CARDIAC: S1 and S2 regular. ABDOMEN: Soft. EXTREMITIES: No edema. LABORATORY DATA: White blood cell count 13.9, hematocrit 26, platelet count 208. Sodium 135, potass ium 4, chloride 108, CO2 18, BUN 15, creatinine 1.6, glucose 95, AST 114, ALT 672. ASSESSMENT: 1. Sickle cell crisis. 2. Transaminitis. PLAN: Convert over to his routine pain medications at home. Increase activity. If he is off of the Dilaudid pump he can be transferred to the floor.
[2018-08-11] MEDS ORDERED: Morphine IR 10 MG/5 ML UDCUP PO PRN (14:28)
[2018-08-11] MEDS: Bisacodyl 5 MG TAB PO PRN (15:57)
[2018-08-11] MEDS: Ibuprofen 600 MG TAB PO PRN (19:54)
[2018-08-11] MEDS: Senokot 8.6 MG TAB PO SCH (20:33)
[2018-08-11] MEDS: Docusate 100 MG CAP PO SCH (20:34)
[2018-08-11] MEDS: METHadone HCl 10 MG TAB PO SCH (20:34)
[2018-08-12] MEDS: Promethazine HCl 25 MG/ML VIAL SLOW IVP PRN ×6 (02:00→22:10)
[2018-08-12] MEDS: diphenhydrAMINE 50 MG/ML VIAL IVP PRN ×6 (02:00→22:10)
[2018-08-12] MEDS: Morphine IR Tab 15 MG TAB PO PRN ×3 (02:22→15:01)
[2018-08-12 03:54] LABS: ALT (SGPT) 483 U/L (8-55); AST (SGOT) 69 U/L (5-34); Albumin 2.6 g/dL (3.5-5.0); Alkaline Phosphatase 101 U/L (40-150); Anion Gap 11 mmol/L (10-20); BUN (Urea Nitrogen) 13 mg/dL (8.9-20.6); Bilirubin, Total 2.8 mg/dL (0.2-1.2); Calc. Creatinine Clearance 98 mL/min (70-130); Calcium 7.8 mg/dL (7.8-10.44); Carbon Dioxide 21 mmol/L (22-29); Chloride 111 mmol/L (98-107); Estimated GFR-MDRD 56; Globulin 4.7 g/dL (2.4-3.5); Glucose 102 mg/dL (70-105); Potassium 3.9 mmol/L (3.5-5.1); Protein, Total 7.3 g/dL (6.0-8.3); Sodium 139 mmol/L (136-145)
[2018-08-12 04:19] LABS: Hemoglobin 7.7 g/dL (14.0-18.0); Hypochromia SLIGHT = 6-15 cells (100X) (0-5/hpf); Lymphocytes 24 % (21-51); MDiff Complete? YES; Macrocytosis SLIGHT = 6-15 cells (100X) (0-5/hpf); Mean Corpuscular Hemoglobin 33.2 pg (27.0-31.0); Mean Platelet Volume 10.3 fL (7.4-10.4); Monocytes 1 % (0-10); Neutrophil 75 % (42-75); Nucleated RBC 8 % (0); PLT Morphology Comment Appears Adequate; Platelet Count 227 thou/uL (130-400); Polychromasia MODERATE = 3-4 cells (100X) (0-2/hpf); RBC Distribution Width 24.1 % (11.5-14.5); Red Blood Cell (RBC) Count 2.32 mill/uL (4.70-6.10); Target Cells SLIGHT = 2-5 cells (100X) (0-1/hpf); White Blood Cell (WBC) Count 13.5 thou/uL (4.8-10.8)
--- NOTE | 2018-08-12 07:10 | PDOC.FM ---
- Subjective Subjective: 28 yo M admitted with sickle cell crisis. Resting in bed this am. He complains of continued extremity and abdominal pain. He was able to walk and sit in the chair yesterday. No new complaints today. No acute events over night. - Objective MAR Reviewed: Yes Vital Signs & Weight: Vital Signs (12 hours) Temp Pulse Resp BP Pulse Ox 08/12/18 03:55 98.6 F 109 H 18 118/82 92 L 08/11/18 23:45 99.2 F 110 H 20 118/83 93 L 08/11/18 20:00 94 L 08/11/18 19:49 100.3 F H 08/11/18 19:42 102.2 F H 115 H 24 H 148/87 H 94 L Weight Weight 96.026 kg I&O: 08/11/18 08/12/18 08/13/18 06:59 06:59 06:59 Intake Total 776.2 1884.1 273 Output Total 2200 3470 Balance -1423.8 -1585.9 273 Result Diagrams: 08/12/18 03:22 08/12/18 03:22 <Balwinder Elliott - Last Filed: 08/12/18 07:08> - Objective Vital Signs & Weight: Vital Signs (12 hours) Temp Pulse Resp BP Pulse Ox 08/17/18 09:14 119 H 100 08/17/18 08:44 87 L 08/17/18 08:00 85 L 08/17/18 07:45 100.9 F H 125 H 20 120/78 85 L 08/17/18 05:30 98.6 F 118 H 21 H 129/87 92 L 08/17/18 00:30 98 F 119 H 20 111/78 94 L Weight Admit Weight 92.986 kg Weight 101.2 kg I&O: 08/16/18 08/17/18 08/18/18 06:59 06:59 06:59 Intake Total 2390 2180 Output Total 500 1000 Balance 1890 1180 Result Diagrams: 08/16/18 07:47 08/16/18 07:47 <Mamie Cano - Last Filed: 08/17/18 10:12> Phys Exam - Physical Examination Constitutional: NAD HEENT: PERRLA Mild icterus Respiratory: clear to auscultation bilateral Cardiovascular: RRR 3/6 systolic murmur Gastrointestinal: soft, positive bowel sounds TTP throughout Musculoskeletal: no edema Neurological: moves all 4 limbs Psychiatric: normal affect, A&O x 3 <Balwinder Elliott - Last Filed: 08/12/18 07:08> Dx/Plan (2) Hb-SS disease with acute chest syndrome Code(s): D57.01 - HB-SS DISEASE WITH ACUTE CHEST SYNDROME Status: Acute (3) BRENDA (acute kidney injury) Code(s): N17.9 - ACUTE KIDNEY FAILURE, UNSPECIFIED Status: Acute (4) Pulmonary hypertension Code(s): I27.20 - PULMONARY HYPERTENSION, UNSPECIFIED Status: Chronic (5) Elevated liver function tests Code(s): R94.5 - ABNORMAL RESULTS OF LIVER FUNCTION STUDIES Status: Acute (6) Elevated troponin Code(s): R74.8 - ABNORMAL LEVELS OF OTHER SERUM ENZYMES Status: Resolved (7) Normocytic anemia Code(s): D64.9 - ANEMIA, UNSPECIFIED Status: Chronic (8) Coagulopathy Status: Acute (9) Hyperbilirubinemia Code(s): E80.6 - OTHER DISORDERS OF BILIRUBIN METABOLISM Status: Acute (10) Bacteremia Code(s): R78.81 - BACTEREMIA Status: Ruled-out - Plan Plan: Sickle cell crisis - patient continues to slowly improve. SOUNDSCRIBER MECHANIC has been stopped and pt restarted on home meds. Patient states pain control is about the same on PO as on SOUNDSCRIBER MECHANIC. - Work today to move all meds to PO - Continue O2 by NC, will wean as symptoms resolve. BRENDA - improving. Continue to monitor Pulmonary HTN - related to severe sickle cell disease. Will need to be followed in outpatient setting Elevated LFT - Improving day over day, continue to monitor Coagulopathy - Improving. Related to congestion. Continue to monitor Anemia - stable Hyperbilirubinemia - stable, continue to monitor Bacteremia - likely contaminate from outside ED. No abx at this time. Multiple cx have been negative here Dispo: patient is currently stable and improving. 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 Likely LOS >48 hours with dc when patient is able to tolerate all meds PO. <Balwinder Elliott - Last Filed: 08/12/18 07:08> (1) Sickle cell anemia with crisis Code(s): D57.00 - HB-SS DISEASE WITH CRISIS, UNSPECIFIED Status: Acute (2) Sepsis Code(s): A41.9 - SEPSIS, UNSPECIFIED ORGANISM Status: Acute (3) Elevated troponin Code(s): R74.8 - ABNORMAL LEVELS OF OTHER SERUM ENZYMES Status: Resolved (4) Newly recognized murmur Code(s): R01.1 - CARDIAC MURMUR, UNSPECIFIED Status: Acute (5) Pain Code(s): R52 - PAIN, UNSPECIFIED Status: Acute (6) History of total right hip arthroplasty Code(s): Z96.641 - PRESENCE OF RIGHT ARTIFICIAL HIP JOINT Status: Chronic <Mamie Cano - Last Filed: 08/17/18 10:12> Attending Addendum - Attending Addendum Date/Time: 08/17/18 1009 I personally evaluated the patient and discussed the management with Dr. Elliott on 08/12/18 I agree with the History, Examination, Assessment and Plan documented above with any addition or exceptions noted below- Patient feeling a little better still having lower extremity pain at night and some abdominal pa. Afebrile VSS A/P: 1) Sickle cell crisis- slowly resolving. Home regimen of pain meds restarted; off SOUNDSCRIBER MECHANIC currently. Continue to encourage ambulation. Possible d/c home soon. 2) Pulmonary HTN- continue O@; stable <Mamie Cano - Last Filed: 08/17/18 10:12>
[2018-08-12] MEDS: METHadone HCl 10 MG TAB PO SCH ×3 (09:01→20:17)
[2018-08-12] MEDS: Gabapentin 300 MG CAP PO SCH ×3 (09:02→20:19)
[2018-08-12] MEDS: Docusate 100 MG CAP PO SCH ×2 (09:02→20:18)
[2018-08-12] MEDS: diphenhydrAMINE 25 MG CAP PO SCH (09:03)
[2018-08-12] MEDS: Promethazine 25 MG TAB PO SCH (09:04)
--- NOTE | 2018-08-12 10:19 | PRG ---
DATE OF SERVICE: 08/12/2018 SUBJECTIVE: The patient has been weaned off the Dilaudid drip and managed with methadone. He is sti ll requesting IV Benadryl and IV Phenergan for abdominal pain. OBJECTIVE: VITAL SIGNS: Temperature 98.6, pulse 115, respirations 25, O2 saturation 98% on 3 liters, blood pres sure 126/87. HEENT: Unremarkable. NECK: No JVD. CHEST: Clear without wheezing. CARDIAC: S1 and S2 regular. ABDOMEN: Mild tenderness to deep palpation. EXTREMITIES: No edema. ASSESSMENT: 1. Sickle cell crisis with acute chest syndrome. 2. Transaminitis, which has been improving. PLAN: The patient needs to be transitioned to oral therapy. He needs to think about going home in t he next few days.
[2018-08-12] MEDS: Sodium Chloride 0.9% 1,000 ML IV SCH (13:29)
--- NOTE | 2018-08-12 19:27 | PRG ---
DATE OF SERVICE: 08/12/2018 SUBJECTIVE: He is still not feeling very well, but little better. He was sitting up earlier today. No respiratory symptoms. Still quite a bit of abdominal distention. Had a bowel movement last night and it was soft and in good amount. He is voiding without difficulty. OBJECTIVE: VITAL SIGNS: His T-max was 102 yesterday at 7:00 p.m., is now 99.3. Blood pressure 123/81, pulse 112. GENERAL: Does not appear in acute distress. He is oriented. LUNGS: With symmetric air entry. HEART: S1, S2, regular rate. ABDOMEN: Quite distended. I did not identify a fluid wave to suggest ascites at this point in time. There is tenderness in the right upper quadrant, in the left lower quadrant. EXTREMITIES: He is able to move extremities. There is 1+ edema in the lower extremities. LABORATORY DATA: White cell count is at 13.5, hemoglobin 7.7, platelets 227, 000. Chemistry with a creatinine of 1.48, which is lower than previous. The liver function tests continue to improve. His AST is down to 69, ALT is down to 483. Albumin is 2.6. Blood cultures are all negative four different sets. ASSESSMENT AND DISCUSSION: Sickle cell anemia hepatocellular dysfunction associated with fever and appendicular involvement. I believe most of them are vascular with congestive changes from pulmonary hypertension and sickling of the small vasculature within the liver. He is off antimicrobial therapy. The organism isolated in [facility] is felt to be a contaminant. [facility]
[2018-08-12] MEDS ORDERED: Simethicone Chewable 80 MG TAB PO PRN (19:46)
[2018-08-12] MEDS ORDERED: Polyethylene Glycol 3350 17 GM Packet PO SCH (20:00)
[2018-08-12] MEDS: Bisacodyl 5 MG TAB PO PRN (20:18)
[2018-08-12] MEDS: Senokot 8.6 MG TAB PO SCH (20:27)
[2018-08-13] MEDS: diphenhydrAMINE 50 MG/ML VIAL IVP PRN ×6 (02:16→23:58)
[2018-08-13] MEDS: Promethazine HCl 25 MG/ML VIAL SLOW IVP PRN ×6 (02:16→23:58)
[2018-08-13] MEDS: Ibuprofen 600 MG TAB PO PRN (02:16)
[2018-08-13] MEDS: Morphine IR Tab 15 MG TAB PO PRN ×3 (02:41→14:15)
[2018-08-13 04:26] LABS: ALT (SGPT) 400 U/L (8-55); AST (SGOT) 84 U/L (5-34); Albumin 2.8 g/dL (3.5-5.0); Alkaline Phosphatase 101 U/L (40-150); Anion Gap 14 mmol/L (10-20); BUN (Urea Nitrogen) 14 mg/dL (8.9-20.6); Bilirubin, Total 3.1 mg/dL (0.2-1.2); Calc. Creatinine Clearance 89 mL/min (70-130); Carbon Dioxide 19 mmol/L (22-29); Chloride 107 mmol/L (98-107); Estimated GFR-MDRD 49; Globulin 5.2 g/dL (2.4-3.5); Glucose 117 mg/dL (70-105); Potassium 4.4 mmol/L (3.5-5.1); Sodium 136 mmol/L (136-145)
[2018-08-13 05:04] LABS: Anisocytosis MODERATE=16-30 cells (100X) (0-5/hpf); Band 6 % (5-11); Eosinophils 4 % (0-10); Lymphocytes 15 % (21-51); MDiff Complete? YES; Macrocytosis SLIGHT = 6-15 cells (100X) (0-5/hpf); Mean Corpuscular HGB CONC 32.6 g/dL (32.0-36.0); Mean Corpuscular Hemoglobin 33.2 pg (27.0-31.0); Mean Platelet Volume 10.1 fL (7.4-10.4); Monocytes 4 % (0-10); Neutrophil 71 % (42-75); Nucleated RBC 3 % (0); Platelet Count 257 thou/uL (130-400); Polychromasia SLIGHT = 2-3 cells (100X) (0-2/hpf); RBC Distribution Width 22.4 % (11.5-14.5); Red Blood Cell (RBC) Count 2.39 mill/uL (4.70-6.10); Target Cells SLIGHT = 2-5 cells (100X) (0-1/hpf); White Blood Cell (WBC) Count 15.2 thou/uL (4.8-10.8)
[2018-08-13] MEDS: Polyethylene Glycol 3350 17 GM Packet PO SCH (06:41)
--- NOTE | 2018-08-13 07:37 | PDOC.FM ---
- Subjective Subjective: Patient complaining of continued leg pain this morning. Stated that it was controlled until he had to stand for a xray. Nursing was concerned over night regarding worsening abdominal distension. He also had a fever over night. - Objective MAR Reviewed: Yes Vital Signs & Weight: Vital Signs (12 hours) Temp Pulse Resp BP Pulse Ox 08/13/18 07:25 98.3 F 121 H 18 114/84 91 L 08/13/18 04:00 101.8 F H 133 H 25 H 128/86 91 L 08/13/18 00:00 100.0 F H 128 H 24 H 139/98 H 93 L 08/12/18 20:00 93 L Weight Admit Weight 92.986 kg Weight 96.615 kg I&O: 08/12/18 08/13/18 08/14/18 06:59 06:59 06:59 Intake Total 1884.1 1152 Output Total 3470 1255 Balance -1585.9 -103 Result Diagrams: 08/13/18 03:50 08/13/18 03:50 Radiology Reviewed by me: Yes (Fluid levels with bowel distension noted on abdominal films.) <Balwinder Elliott - Last Filed: 08/13/18 07:35> - Objective Vital Signs & Weight: Vital Signs (12 hours) Temp Pulse Resp BP Pulse Ox 08/13/18 11:13 97.6 F 113 H 20 98/70 93 L 08/13/18 07:39 94 L 08/13/18 07:25 98.3 F 121 H 18 114/84 91 L 08/13/18 04:00 101.8 F H 133 H 25 H 128/86 91 L 08/13/18 00:00 100.0 F H 128 H 24 H 139/98 H 93 L Weight Admit Weight 92.986 kg Weight 96.615 kg I&O: 08/12/18 08/13/18 08/14/18 06:59 06:59 06:59 Intake Total 1884.1 1152 Output Total 3470 1255 Balance -1585.9 -103 Result Diagrams: 08/13/18 03:50 08/13/18 03:50 <Kirk Abbasi - Last Filed: 08/13/18 11:24> Phys Exam - Physical Examination Constitutional: NAD HEENT: moist MMs Neck: no JVD Respiratory: clear to auscultation bilateral Cardiovascular: RRR 3/6 systolic murmur Abdomen more distended than prevoius exam. BS x4. Diffuse TTP Musculoskeletal: no edema Neurological: normal sensation, moves all 4 limbs Psychiatric: normal affect, A&O x 3 Skin: no rash <AngBalwinder miles - Last Filed: 08/13/18 07:35> Dx/Plan (1) Abdominal pain Code(s): R10.9 - UNSPECIFIED ABDOMINAL PAIN Status: Acute Qualifiers: Abdominal location: generalized Qualified Code(s): R10.84 - Generalized abdominal pain (2) Hb-SS disease with acute chest syndrome Code(s): D57.01 - HB-SS DISEASE WITH ACUTE CHEST SYNDROME Status: Acute (3) BRENDA (acute kidney injury) Code(s): N17.9 - ACUTE KIDNEY FAILURE, UNSPECIFIED Status: Acute (4) Pulmonary hypertension Code(s): I27.20 - PULMONARY HYPERTENSION, UNSPECIFIED Status: Chronic (5) Elevated liver function tests Code(s): R94.5 - ABNORMAL RESULTS OF LIVER FUNCTION STUDIES Status: Acute (6) Elevated troponin Code(s): R74.8 - ABNORMAL LEVELS OF OTHER SERUM ENZYMES Status: Resolved (7) Bacteremia Code(s): R78.81 - BACTEREMIA Status: Ruled-out (8) Normocytic anemia Code(s): D64.9 - ANEMIA, UNSPECIFIED Status: Chronic (9) Coagulopathy Status: Acute (10) Hyperbilirubinemia Code(s): E80.6 - OTHER DISORDERS OF BILIRUBIN METABOLISM Status: Acute - Plan Plan: Sickle cell crisis - pain is generally well controlled during the day, however it becomes worse at night. This is apparently c/w his pattern at home. Most of his pain at this time is lower extremity. SOB is improving. He continues to have cyclical fevers at night. - Will continue to work to control pain, he may be ready to move to floor today as he is seems to be as well controlled on orals as he was on ENDLESS BELT FINISHER - Continue O2 by NC, will wean as symptoms resolve. Abdominal pain - unclear etiology at this time. Possible etiologies include constipation and obstruction. He has bowel sounds through out and is passing gas. He also had a small BM yesterday, however his abdominal xray is concerning for obstructive pattern. Will give miralax today, if this does not produce a BM and improvement of symptoms will consider a contrast abdominal study to r/o obstruction BRENDA - interval worsening of creatinine likely related to decreased oral intake, will increase IVF and monitor values in the am. This may also represent a worsening of the crisis and vascular congestion. - UOP is about 50 ml/hr Pulmonary HTN - related to severe sickle cell disease. Will need to be followed in outpatient setting Elevated LFT - Improving day over day, continue to monitor Coagulopathy - Improving. Related to congestion. Continue to monitor Anemia - stable Hyperbilirubinemia - stable, continue to monitor Bacteremia - likely contaminate from outside ED. No abx at this time. Multiple cx have been negative here Dispo: Currently stable, however improvement seems to have plateaued. 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 Likely LOS >48 <Balwinder Elliott - Last Filed: 08/13/18 07:35> Attending Addendum - Attending Addendum Date/Time: 08/13/18 1123 I personally evaluated the patient and discussed the management with Dr. Elliott. I agree with the History, Examination, Assessment and Plan documented above with any addition or exceptions noted below. Patient continues to have pain associated with sickle cell pain crisis. Continue pain control as needed. He has worsening abdominal pain with KUB showing distention. Will work to improve bowel regimen and hopefully this will improve with BM as he has good bowel souns. IVF for likely mild hypovolemia. <Kirk Abbasi - Last Filed: 08/13/18 11:24>
[2018-08-13] MEDS: Sodium Chloride 0.45% 1,000 ML IV SCH (08:15)
[2018-08-13] MEDS: Docusate 100 MG CAP PO SCH ×2 (08:47→20:00)
[2018-08-13] MEDS: METHadone HCl 10 MG TAB PO SCH ×3 (08:47→20:00)
[2018-08-13] MEDS: Gabapentin 300 MG CAP PO SCH ×3 (08:47→20:00)
[2018-08-13] MEDS: Promethazine 25 MG TAB PO SCH (08:48)
[2018-08-13] MEDS: diphenhydrAMINE 25 MG CAP PO SCH (08:48)
--- NOTE | 2018-08-13 09:14 | RAD ---
ABDOMEN ONE VIEW: History: Trauma, pain. Comparison: Chest radiograph same day. FINDINGS: There is moderate distention of the transverse colon. There are a few small bowel air fluid levels. Sclerosis is noted throughout the skeleton concordant suggesting chronic sickle cell disease. Multipl e H shaped vertebrae with loss of height of the L4 vertebral body. IMPRESSION: 1. Distended loops of small bowel and large bowel can be seen with ileus. The small bowel air fluid l evels have the suggestion of a low grade small bowel obstruction. 2. Skeletal findings of chronic sickle cell disease. POS: [facility]
--- NOTE | 2018-08-13 09:19 | RAD ---
CHEST TWO VIEWS: History: Dyspnea. Comparison: 08-09-18 FINDINGS: Multifocal airspace opacities are similar. Port catheter tip is similar. Heart size is enlarged. No p neumothorax. IMPRESSION: Similar appearance to the multifocal airspace opacities, probably suggest acute chest syndrome from s ickle cell disease. POS: [facility]
--- NOTE | 2018-08-13 10:46 | PRG ---
DATE OF SERVICE: 08/13/2018 SUBJECTIVE: This morning, he is still having temperature of 100.1. Chest x-ray taken today showed h e has some difficulty breathing, cough is clear. OBJECTIVE: VITAL SIGNS: Blood pressure 126/91, respirations 30, sats are 88 on 2 liters. CHEST: Reveals decreased breath sounds, no wheezing. CARDIAC: Normal S1, S2, no gallops. ABDOMEN: Soft. X-RAY FINDINGS: X-ray still shows nonspecific bilateral infiltrates. IMPRESSION: Sickle cell crisis, fever. Cultures are negative. PLAN: I agree with deescalate antibiotics. Comfort care. Consider low dose steroids.
[2018-08-13] MEDS: Sodium Chloride 0.9% 1,000 ML IV SCH ×2 (15:13→23:58)
[2018-08-13] MEDS ORDERED: Polyethylene Glycol 3350 17 GM Packet PO SCH (17:45)
[2018-08-13] MEDS: Senokot 8.6 MG TAB PO SCH (20:00)
[2018-08-14] MEDS: Morphine IR Tab 15 MG TAB PO PRN ×3 (00:05→12:40)
[2018-08-14] MEDS: Sodium Chloride 0.9% 1,000 ML IV SCH (03:57)
[2018-08-14] MEDS: diphenhydrAMINE 50 MG/ML VIAL IVP PRN ×5 (03:58→21:06)
[2018-08-14] MEDS: Promethazine HCl 25 MG/ML VIAL SLOW IVP PRN ×5 (03:58→21:07)
[2018-08-14] MEDS: Sodium Chloride 0.45% 1,000 ML IV SCH ×4 (04:02→22:25)
[2018-08-14 04:38] LABS: ALT (SGPT) 399 U/L (8-55); AST (SGOT) 243 U/L (5-34); Albumin 2.8 g/dL (3.5-5.0); Alkaline Phosphatase 93 U/L (40-150); Anion Gap 16 mmol/L (10-20); BUN (Urea Nitrogen) 17 mg/dL (8.9-20.6); Bilirubin, Total 3.7 mg/dL (0.2-1.2); Calc. Creatinine Clearance 88 mL/min (70-130); Carbon Dioxide 18 mmol/L (22-29); Chloride 107 mmol/L (98-107); Estimated GFR-MDRD 49; Glucose 106 mg/dL (70-105); Potassium 4.5 mmol/L (3.5-5.1); Protein, Total 7.8 g/dL (6.0-8.3); Sodium 136 mmol/L (136-145)
[2018-08-14] MEDS: Ibuprofen 600 MG TAB PO PRN (05:07)
[2018-08-14 05:27] LABS: Anisocytosis MODERATE=16-30 cells (100X) (0-5/hpf); Band 1 % (5-11); Eosinophils 2 % (0-10); Hemoglobin 7.7 g/dL (14.0-18.0); Hemoglobin C Crystals SLIGHT (None Seen); Lymphocytes 14 % (21-51); MDiff Complete? YES; Mean Corpuscular HGB CONC 32.4 g/dL (32.0-36.0); Monocytes 2 % (0-10); Neutrophil 81 % (42-75); Nucleated RBC 6 % (0); Platelet Count 278 thou/uL (130-400); Polychromasia MODERATE = 3-4 cells (100X) (0-2/hpf); RBC Distribution Width 24.8 % (11.5-14.5); Red Blood Cell (RBC) Count 2.33 mill/uL (4.70-6.10); Spherocytes SLIGHT = 1-5 cells (100X) (None Seen); Target Cells SLIGHT = 2-5 cells (100X) (0-1/hpf)
--- NOTE | 2018-08-14 07:47 | PDOC.FM ---
- Subjective Subjective: 28 yo M here for sickle cell crisis. Over night patient had continued LE pain and abd pain. He denies any new symptoms. Fevers have continued nightly. No acute events over night - Objective MAR Reviewed: Yes Vital Signs & Weight: Vital Signs (12 hours) Temp Pulse Resp BP Pulse Ox 08/14/18 07:25 98.4 F 120 H 22 H 135/93 H 100 08/14/18 04:00 101.0 F H 126 H 25 H 123/90 91 L 08/14/18 00:00 98.8 F 122 H 24 H 120/80 95 08/13/18 20:00 95 Weight Admit Weight 92.986 kg Weight 97.658 kg I&O: 08/13/18 08/14/18 08/15/18 06:59 06:59 06:59 Intake Total 1152 1550 Output Total 1255 1050 Balance -103 500 Result Diagrams: 08/14/18 03:54 08/14/18 03:54 <Balwinder Elliott - Last Filed: 08/14/18 07:41> - Objective Vital Signs & Weight: Vital Signs (12 hours) Temp Pulse Resp BP Pulse Ox 08/14/18 07:27 94 L 08/14/18 07:25 98.4 F 120 H 22 H 135/93 H 100 08/14/18 04:00 101.0 F H 126 H 25 H 123/90 91 L 08/14/18 00:00 98.8 F 122 H 24 H 120/80 95 Weight Admit Weight 92.986 kg Weight 97.658 kg I&O: 08/13/18 08/14/18 08/15/18 06:59 06:59 06:59 Intake Total 1152 1550 Output Total 1255 1050 Balance -103 500 Result Diagrams: 08/14/18 03:54 08/14/18 03:54 <Kirk Abbasi - Last Filed: 08/14/18 10:47> Phys Exam - Physical Examination Constitutional: NAD mild scleral icterus Neck: no JVD Respiratory: clear to auscultation bilateral Cardiovascular: RRR 3/6 systolic murmur Gastrointestinal: soft, positive bowel sounds Diffuse TTP Musculoskeletal: no edema Neurological: moves all 4 limbs Psychiatric: normal affect, A&O x 3 Skin: no rash <Balwinder Elliott - Last Filed: 08/14/18 07:41> Dx/Plan (1) Abdominal pain Code(s): R10.9 - UNSPECIFIED ABDOMINAL PAIN Status: Acute Qualifiers: Abdominal location: generalized Qualified Code(s): R10.84 - Generalized abdominal pain (2) Hb-SS disease with acute chest syndrome Code(s): D57.01 - HB-SS DISEASE WITH ACUTE CHEST SYNDROME Status: Acute (3) BRENDA (acute kidney injury) Code(s): N17.9 - ACUTE KIDNEY FAILURE, UNSPECIFIED Status: Acute (4) Pulmonary hypertension Code(s): I27.20 - PULMONARY HYPERTENSION, UNSPECIFIED Status: Chronic (5) Elevated liver function tests Code(s): R94.5 - ABNORMAL RESULTS OF LIVER FUNCTION STUDIES Status: Acute (6) Elevated troponin Code(s): R74.8 - ABNORMAL LEVELS OF OTHER SERUM ENZYMES Status: Resolved (7) Normocytic anemia Code(s): D64.9 - ANEMIA, UNSPECIFIED Status: Chronic (8) Coagulopathy Status: Acute (9) Hyperbilirubinemia Code(s): E80.6 - OTHER DISORDERS OF BILIRUBIN METABOLISM Status: Acute - Plan Plan: Sickle cell crisis - Patient has failed to continue to improve from a lab and symptom standpoint. Will reach out to heme today for further direction. This patient may be a candidate for exchange transfusion due to multi system dysfunction. This, however, would likely need to be completed at a different facility. - Continue O2 by [place], will wean as symptoms resolve. BRENDA - stable at this time, however output has dropped off. Will increase IVF rate and recheck in am Pulmonary HTN - related to severe sickle cell disease. Will need to be followed in outpatient setting Elevated LFT - stable, however continues to be elevated. Continue to monitor Coagulopathy - Stable, recheck today Anemia - stable Hyperbilirubinemia - worsening compared to yesterday Bacteremia - likely contaminate from outside ED. No abx at this time. Multiple cx have been negative here Dispo: patient is currently stable, however no longer improving. Will need to start to consider new treatment options. assisted prognosis is likely poor related to pulmonary HTN. Likely LOS >48 hours <Balwinder Elliott - Last Filed: 08/14/18 07:41> Attending Addendum - Attending Addendum Date/Time: 08/14/18 1046 I personally evaluated the patient and discussed the management with Dr. Elliott. I agree with the History, Examination, Assessment and Plan documented above with any addition or exceptions noted below. Patient stable, abdominal pain improved with successive bowel movements. Labs are overall stable, though his LFTs are uptrending. Will transfuse per Pulm recommendations. Will reach out to Heme today to see if there is anything else we can offer patient. Stop IV Phenergan and offer PO only. Pain control stable. <Kirk Abbasi - Last Filed: 08/14/18 10:47>
[2018-08-14] MEDS: Promethazine 25 MG TAB PO SCH (08:23)
[2018-08-14] MEDS: Docusate 100 MG CAP PO SCH ×2 (08:24→21:12)
[2018-08-14] MEDS: predniSONE 5 MG TAB PO SCH (08:24)
[2018-08-14] MEDS: Gabapentin 300 MG CAP PO SCH ×3 (08:24→20:28)
[2018-08-14] MEDS: METHadone HCl 10 MG TAB PO SCH ×3 (08:25→20:29)
[2018-08-14] MEDS: Polyethylene Glycol 3350 17 GM Packet PO SCH (08:27)
[2018-08-14 08:42] LABS: INR-International Normal Ratio 1.7; PTT 36.8 SEC (22.9-36.1); Prothrombin Time 19.6 SEC (12.0-14.7)
[2018-08-14] MEDS ORDERED: Sterile Water 10 ML VIAL IVP SCH (11:30)
[2018-08-14] MEDS ORDERED: Activase 2 MG VIAL CATH SCH (11:30)
[2018-08-14] MEDS: diphenhydrAMINE 25 MG CAP PO SCH (11:35)
--- NOTE | 2018-08-14 12:58 | PRG ---
DATE OF SERVICE: 08/14/2018 SUBJECTIVE: The patient is still having quite a bit of pain both in appendicular structures as well as the right upper quadrant abdominal area. No vomiting, no diarrhea. Voiding without difficulty. Still having temperature elevation. The last one was 101 earlier today. He is currently 97. OBJECTIVE: VITAL SIGNS: Blood pressure 114/84, pulse 114, respirations 18 with room air O2 saturation. GENERAL: Appears chronically ill, oriented. LUNGS: With symmetric air entry. HEART: S1, S2, regular rate. ABDOMEN: Moderately distended with tenderness in the right upper quadrant, question of ascites. No edema. EXTREMITIES: The patient has tenderness in the knee area and appendicular structures, mostly around the joints bilaterally. NEUROLOGIC: Cognitive function appears to be intact and neuro examination is nonfocal. LABORATORY DATA: White cell count is at 12.0, hemoglobin 7.7, platelets 278 with 81% neutrophils. S odium 136, creatinine 1.67. The transaminases went up again to 243 and ALT is down to 399, shows sor t of a mixed picture there. Albumin is at 2.8. X-RAY FINDINGS: The patient had repeat chest x-ray, which shows multifocal airspace opacities, possi jaguar suggesting acute chest syndrome from sickle cell disease. 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 He has been quite refractory to treatment and I would consider transfer to a tertiary center.
--- NOTE | 2018-08-14 15:31 | RAD ---
RADIOGRAPH CHEST 1 VIEW: Date: 08/14/2018 Time: 1:57 p.m. HISTORY: A 28-year-old male, status post Mediport placement. COMPARISON: 08/13/2018 FINDINGS: Again noted is the left IJ implantable vascular access port with the distal tip overlying the SVC. A gain noted is the cardiomegaly. Prominent interstitial markings, with areas of increased density in the left mid and left lower lung zones. No consolidation in the right lung. Much of the left lung i s obscured by the cardiomegaly. No pneumothorax. IMPRESSION: 1. Nonspecific mild pulmonary densities, left greater than right. 2. Left internal jugular implantable vascular access port. 3. No pneumothorax. 4. Cardiomegaly, consistent with sickle cell disease. KRISTI [] POS: [facility]
--- NOTE | 2018-08-14 18:03 | PRG ---
DATE OF CONSULTATION: 08/14/2018 SUBJECTIVE: Gelacio Malcolm continues to complain of pain all over. IMAGING DATA: Chest radiograph done today shows increased interstitial markings. PHYSICAL EXAMINATION: VITAL SIGNS: Remained stable. He still has mild resting tachycardia. Oximetry is 98% on room air, 94% on 2 liters. LUNGS: Distant and clear. HEART: Regular rhythm. ABDOMEN: Soft. LABORATORY DATA: White count has been checked since the , renal function stable with a creatinin e of 1.67 and 1.61 on . IMPRESSION: Acute chest syndrome. He continues to have symptoms. Since his pain is improved with hydration and all of his medicines, might not be unreasonable to go a head and transfuse him to see if this helps with his crisis. I have discussed the above with the res idents. We will continue to follow.
[2018-08-14] MEDS: Senokot 8.6 MG TAB PO SCH (21:12)
[2018-08-15] MEDS: diphenhydrAMINE 50 MG/ML VIAL IVP PRN ×6 (01:21→22:56)
[2018-08-15] MEDS: Promethazine HCl 25 MG/ML VIAL SLOW IVP PRN ×3 (01:21→22:54)
[2018-08-15 04:58] LABS: ALT (SGPT) 362 U/L (8-55); AST (SGOT) 180 U/L (5-34); Albumin 2.6 g/dL (3.5-5.0); Alkaline Phosphatase 90 U/L (40-150); Anion Gap 12 mmol/L (10-20); BUN (Urea Nitrogen) 16 mg/dL (8.9-20.6); Bilirubin, Total 2.6 mg/dL (0.2-1.2); Calc. Creatinine Clearance 109 mL/min (70-130); Calcium 7.9 mg/dL (7.8-10.44); Carbon Dioxide 20 mmol/L (22-29); Chloride 109 mmol/L (98-107); Estimated GFR-MDRD 61; Glucose 148 mg/dL (70-105); Potassium 4.4 mmol/L (3.5-5.1); Protein, Total 7.6 g/dL (6.0-8.3); Sodium 137 mmol/L (136-145)
[2018-08-15 05:20] LABS: Anisocytosis MODERATE=16-30 cells (100X) (0-5/hpf); Band 3 % (5-11); Hemoglobin 7.4 g/dL (14.0-18.0); Lymphocytes 11 % (21-51); MDiff Complete? YES; Mean Corpuscular HGB CONC 33.8 g/dL (32.0-36.0); Mean Corpuscular Hemoglobin 34.2 pg (27.0-31.0); Mean Platelet Volume 9.9 fL (7.4-10.4); Monocytes 7 % (0-10); Neutrophil 78 % (42-75); Nucleated RBC 2 % (0); PLT Morphology Comment Appears Adequate; Platelet Count 267 thou/uL (130-400); Polychromasia MODERATE = 3-4 cells (100X) (0-2/hpf); Reactive Lymphocytes 1 % (0-10); Red Blood Cell (RBC) Count 2.17 mill/uL (4.70-6.10); White Blood Cell (WBC) Count 11.8 thou/uL (4.8-10.8)
[2018-08-15] MEDS: Sodium Chloride 0.45% 1,000 ML IV SCH ×3 (05:26→19:53)
--- NOTE | 2018-08-15 06:10 | PDOC.FM ---
- Subjective Subjective: Patient doing well this AM. No significant overnight events. Patient states he is feeling better this AM. He was able to get up and ambulate yesterday. He states he is sore, but otherwise improved. He denies any chest pain or shortness of breath. After further discussion, patient still refusing transfusion unless his Hg falls below 5. Had lengthy discussion regarding goals of care. Patient understands that if he does not improve, we will have to consider transfer to [place]. Today, patient is improved which is reassuring. Patient states he will try to ambulate more today. - Objective MAR Reviewed: Yes Vital Signs & Weight: Vital Signs (12 hours) Temp Pulse Resp BP Pulse Ox 08/15/18 03:48 97.0 F L 93 20 111/77 92 L 08/15/18 00:11 93 L 08/14/18 23:30 96.8 F L 99 18 120/80 91 L 08/14/18 19:51 96.9 F L 94 20 111/83 93 L Weight Admit Weight 92.986 kg Weight 98.486 kg I&O: 08/13/18 08/14/18 08/15/18 06:59 06:59 06:59 Intake Total 1152 1550 3820 Output Total 1255 1050 2850 Balance -103 500 970 Result Diagrams: 08/15/18 04:08 08/15/18 04:08 EKG Reviewed by me: Yes Radiology Reviewed by me: Yes <Marleny Cagle - Last Filed: 08/15/18 09:40> - Objective Vital Signs & Weight: Vital Signs (12 hours) Temp Pulse Resp BP Pulse Ox 08/15/18 08:15 93 L 08/15/18 07:57 97.0 F L 94 18 129/91 H 95 08/15/18 03:48 97.0 F L 93 20 111/77 92 L 08/15/18 00:11 93 L 08/14/18 23:30 96.8 F L 99 18 120/80 91 L Weight Admit Weight 92.986 kg Weight 98.486 kg I&O: 08/14/18 08/15/18 08/16/18 06:59 06:59 06:59 Intake Total 1550 3820 Output Total 1050 2850 Balance 500 970 Result Diagrams: 08/15/18 04:08 08/15/18 04:08 <AbbasiKirk Liv - Last Filed: 08/15/18 10:17> Phys Exam - Physical Examination Constitutional: NAD Laying in bed HEENT: moist MMs Neck: supple Respiratory: clear to auscultation bilateral Cardiovascular: RRR Systolic murmur Gastrointestinal: soft mildly distended Musculoskeletal: no edema, pulses present Neurological: non-focal Psychiatric: normal affect, A&O x 3 Skin: no rash, cap refill <2 seconds <Marleny Cagle - Last Filed: 08/15/18 09:40> Dx/Plan (1) Hb-SS disease with acute chest syndrome Code(s): D57.01 - HB-SS DISEASE WITH ACUTE CHEST SYNDROME Status: Acute (2) BRENDA (acute kidney injury) Code(s): N17.9 - ACUTE KIDNEY FAILURE, UNSPECIFIED Status: Acute (3) Coagulopathy Status: Acute (4) Elevated liver function tests Code(s): R94.5 - ABNORMAL RESULTS OF LIVER FUNCTION STUDIES Status: Acute (5) Hyperbilirubinemia Code(s): E80.6 - OTHER DISORDERS OF BILIRUBIN METABOLISM Status: Acute (6) Pulmonary hypertension Code(s): I27.20 - PULMONARY HYPERTENSION, UNSPECIFIED Status: Chronic (7) Elevated troponin Code(s): R74.8 - ABNORMAL LEVELS OF OTHER SERUM ENZYMES Status: Resolved (8) Macrocytosis without anemia Code(s): D75.89 - OTHER SPECIFIED DISEASES OF BLOOD AND BLOOD-FORMING ORGANS Status: Acute (9) Pain Code(s): R52 - PAIN, UNSPECIFIED Status: Acute (10) Sickle cell anemia with crisis Code(s): D57.00 - HB-SS DISEASE WITH CRISIS, UNSPECIFIED Status: Acute - Plan Plan: 28 year old male presents with acute sickle cell crisis Sickle cell crisis, acute chest syndrome - Patient improved from yesterday. Labs improved, as well. - Patient candidate for exchange transfusion; however, patient refuses transfusion unless Hg <5 and this would best be achieved at tertiary facility. - Continue O2 by [place] - If patient improves, consider d/c home within next day or two; otherwise consider transfer to [place]. - Patient back on home pain medications. 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 - Continue to monitor Coagulopathy - Stable Anemia - Stable - Patient refuses blood transfusion unless Hg <5 Hyperbilirubinemia - Improved compared to yesterday Bacteremia, ruled out - Likely contaminate from outside ED. - No abx at this time - Multiple cx have been negative here Dispo: Patient is currently stable. Improved from yesterday. Discussed with patient that if he continues to improve today, would consider d/c home within the next few days vs. transfer to [place] should he acutely worsen. Patient understood. He was encouraged to ambulate today. Will continue home pain medications. <Marleny Cagle - Last Filed: 08/15/18 09:40> Attending Addendum - Attending Addendum Date/Time: 08/15/18 1013 I personally evaluated the patient and discussed the management with Dr. Cagle. I agree with the History, Examination, Assessment and Plan documented above with any addition or exceptions noted below. Patient definitely looks better this morning, and his labs have moved somewhat in the improved direction. Transfusion not performed yesterday as the patient declined it, but also blood has to be shipped from [place] due to the presence of antibodies in his T&C. As his labs and vitals are improved, will hold off for now. We also considered transfer yesterday to his specialists in [place] since he seemed to be moving in the wrong direction, but with his improvement today will hold off on that. He is actually nearing what appears to be his baseline. We will monitor today and encourage ambulation and consider discharge tomorrow if clinical course permits. If he has any regression from this point forward, will work on transfer to [place]. <Kirk Abbasi - Last Filed: 08/15/18 10:17>
[2018-08-15] MEDS: Polyethylene Glycol 3350 17 GM Packet PO SCH (09:14)
[2018-08-15] MEDS: Hydroxyurea 500 MG CAP PO SCH (09:14)
[2018-08-15] MEDS: predniSONE 5 MG TAB PO SCH (09:15)
[2018-08-15] MEDS: METHadone HCl 10 MG TAB PO SCH ×3 (09:15→21:22)
[2018-08-15] MEDS: Docusate 100 MG CAP PO SCH ×2 (09:16→21:22)
[2018-08-15] MEDS: Gabapentin 300 MG CAP PO SCH ×3 (09:16→21:22)
[2018-08-15] MEDS: Promethazine 25 MG TAB PO SCH (09:17)
[2018-08-15] MEDS: diphenhydrAMINE 25 MG CAP PO SCH (09:17)
[2018-08-15] MEDS: Ondansetron PF 4 MG/2 ML Vial IVP PRN ×2 (12:46→19:50)
--- NOTE | 2018-08-15 14:19 | PRG ---
DATE OF SERVICE: 08/15/2018 SUBJECTIVE: Gelacio Malcolm says he feels better today. He was not transfused yesterday. OBJECTIVE: Vitals: He is afebrile, heart rate is 109, respiratory rate is 20, oximetry is 92, blood pressure 13 3/97. Lungs, heart, and abdomen are unchanged. He has had no rhythm disturbances. It would not be unreasonable for him to be transferred out to a medical bed anticipating discharge so on. He is being managed with his oral medications, not receiving any intravenous medicines at this t alphonso, receiving IV fluids, but he is also drinking and eating well. He is conversing on the phone and in no distress when I walked in the room.
[2018-08-15] MEDS: Morphine IR Tab 15 MG TAB PO PRN ×2 (15:26→19:49)
[2018-08-15] MEDS: Ibuprofen 600 MG TAB PO PRN (15:26)
[2018-08-15] MEDS: Senokot 8.6 MG TAB PO SCH (21:23)
[2018-08-16] MEDS: Sodium Chloride 0.45% 1,000 ML IV SCH ×2 (04:34→18:07)
[2018-08-16] MEDS: diphenhydrAMINE 50 MG/ML VIAL IVP PRN (04:36)
[2018-08-16] MEDS: Promethazine HCl 25 MG/ML VIAL SLOW IVP PRN (04:36)
--- NOTE | 2018-08-16 06:53 | PDOC.FM ---
- Subjective Subjective: No significant overnight events. Patient was able to ambulate yesterday within his room. He endorses some soreness, and it was explained that this was to be expected 2/2 disease process, as well as deconditioning. Had lengthy discussion with patient regarding goals of care. Since he is refusing transfusion, there is not much more we can do to improve his status. He does admit that he has gradually improved since he has been here. We discussed that he was to get up and walk the halls with assistance today. Discussed plan for d/c home tomorrow with close follow with specialists in [place] within the week. Patient and patient's family were on board with this plan. - Objective MAR Reviewed: Yes Vital Signs & Weight: Vital Signs (12 hours) Temp Pulse Resp BP Pulse Ox 08/16/18 04:13 97.3 F L 112 H 22 H 120/85 931 H 08/15/18 23:49 97.6 F 113 H 22 H 114/79 90 L 08/15/18 23:30 92 L 08/15/18 20:00 97.9 F 111 H 20 117/84 92 L Weight Admit Weight 92.986 kg Weight 98.486 kg I&O: 08/14/18 08/15/18 08/16/18 06:59 06:59 06:59 Intake Total 1550 3820 2390 Output Total 1050 2850 500 Balance 859 342 5574 Result Diagrams: 08/16/18 07:47 08/16/18 07:47 EKG Reviewed by me: Yes Radiology Reviewed by me: Yes <Marleny Cagle - Last Filed: 08/16/18 10:28> - Objective Vital Signs & Weight: Vital Signs (12 hours) Temp Pulse Resp BP Pulse Ox 08/16/18 08:00 91 L 08/16/18 07:15 97.5 F L 110 H 16 115/79 91 L 08/16/18 04:13 97.3 F L 112 H 22 H 120/85 931 H 08/15/18 23:49 97.6 F 113 H 22 H 114/79 90 L 08/15/18 23:30 92 L Weight Admit Weight 92.986 kg Weight 98.486 kg I&O: 08/15/18 08/16/18 08/17/18 06:59 06:59 06:59 Intake Total 3820 2390 Output Total 2850 500 Balance 970 1890 Result Diagrams: 08/16/18 07:47 08/16/18 07:47 <Kirk Abbasi - Last Filed: 08/16/18 10:45> Phys Exam - Physical Examination Constitutional: NAD HEENT: moist MMs Neck: supple Respiratory: clear to auscultation bilateral Cardiovascular: RRR 4/6 systolic murmur Gastrointestinal: soft, no distention, positive bowel sounds Musculoskeletal: no edema, pulses present Neurological: non-focal Psychiatric: A&O x 3 Skin: no rash, cap refill <2 seconds <Marleny Cagle - Last Filed: 08/16/18 10:28> Dx/Plan (1) Hb-SS disease with acute chest syndrome Code(s): D57.01 - HB-SS DISEASE WITH ACUTE CHEST SYNDROME Status: Acute (2) BRENDA (acute kidney injury) Code(s): N17.9 - ACUTE KIDNEY FAILURE, UNSPECIFIED Status: Acute (3) Coagulopathy Status: Acute (4) Elevated liver function tests Code(s): R94.5 - ABNORMAL RESULTS OF LIVER FUNCTION STUDIES Status: Acute (5) Hyperbilirubinemia Code(s): E80.6 - OTHER DISORDERS OF BILIRUBIN METABOLISM Status: Acute (6) Pulmonary hypertension Code(s): I27.20 - PULMONARY HYPERTENSION, UNSPECIFIED Status: Chronic (7) Elevated troponin Code(s): R74.8 - ABNORMAL LEVELS OF OTHER SERUM ENZYMES Status: Resolved (8) Macrocytosis without anemia Code(s): D75.89 - OTHER SPECIFIED DISEASES OF BLOOD AND BLOOD-FORMING ORGANS Status: Acute (9) Pain Code(s): R52 - PAIN, UNSPECIFIED Status: Acute (10) Sickle cell anemia with crisis Code(s): D57.00 - HB-SS DISEASE WITH CRISIS, UNSPECIFIED Status: Acute - Plan Plan: 28 year old male presents with acute sickle cell crisis Sickle cell crisis, acute chest syndrome - Gradual improvement - Patient candidate for exchange transfusion; however, patient refuses transfusion unless Hg <5 and this would best be achieved at tertiary facility. - Continue O2 by [place] - Discussed goals of care, plan is to d/c home tomorrow with close follow up with specialists in [place] within the week. Patient and patient's family were agreeable with plan. - Patient back on home pain medications. 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 Coagulopathy - Stable Anemia - Stable - Patient refuses blood transfusion unless Hg <5 Hyperbilirubinemia - Improved compared to yesterday Bacteremia, ruled out - Likely contaminate from outside ED. - No abx at this time - Multiple cx have been negative here Dispo: Patient is currently stable. Plan for d/c home tomorrow. Goal of ambulating halls today with assistance. <Marleny Cagle - Last Filed: 08/16/18 10:28> Attending Addendum - Attending Addendum Date/Time: 08/16/18 1043 I personally evaluated the patient and discussed the management with Dr. Cagle. I agree with the History, Examination, Assessment and Plan documented above with any addition or exceptions noted below. Patient overall stable today. His labs continue to normalize. He is stable on his current oxygen requirement. Other than mild IV fluid hydration, he is not receiving anything in the hospital at this time that he is not able to do at home. Encouraged ambulation today and anticipate discharge home tomorrow. If he does have any worsening of his condition today or tonight, he will need transfer to [place] to his specialists. We have stopped the IV Phenergan as he can tolerate PO without difficulty. <Kirk Abbasi - Last Filed: 08/16/18 10:45>
[2018-08-16] MEDS: diphenhydrAMINE 25 MG CAP PO SCH (08:00)
[2018-08-16] MEDS: predniSONE 5 MG TAB PO SCH (08:00)
[2018-08-16] MEDS: Docusate 100 MG CAP PO SCH ×2 (08:00→20:56)
[2018-08-16] MEDS: Gabapentin 300 MG CAP PO SCH ×3 (08:00→20:56)
[2018-08-16] MEDS: Hydroxyurea 500 MG CAP PO SCH (08:01)
[2018-08-16] MEDS: Polyethylene Glycol 3350 17 GM Packet PO SCH (08:02)
[2018-08-16] MEDS: Morphine IR Tab 15 MG TAB PO PRN ×2 (08:34→12:40)
[2018-08-16 08:35] LABS: ALT (SGPT) 306 U/L (8-55); AST (SGOT) 122 U/L (5-34); Albumin 2.8 g/dL (3.5-5.0); Alkaline Phosphatase 94 U/L (40-150); Anion Gap 14 mmol/L (10-20); BUN (Urea Nitrogen) 16 mg/dL (8.9-20.6); Bilirubin, Total 2.1 mg/dL (0.2-1.2); Calc. Creatinine Clearance 109 mL/min (70-130); Calcium 7.9 mg/dL (7.8-10.44); Carbon Dioxide 17 mmol/L (22-29); Chloride 107 mmol/L (98-107); Estimated GFR-MDRD 61; Globulin 5.2 g/dL (2.4-3.5); Glucose 102 mg/dL (70-105); Potassium 4.6 mmol/L (3.5-5.1); Sodium 133 mmol/L (136-145)
[2018-08-16] MEDS: METHadone HCl 10 MG TAB PO SCH ×3 (08:35→20:56)
[2018-08-16 08:40] LABS: Anisocytosis MODERATE=16-30 cells (100X) (0-5/hpf); Band 1 % (5-11); Eosinophils 2 % (0-10); Hemoglobin 7.9 g/dL (14.0-18.0); Lymphocytes 43 % (21-51); MDiff Complete? YES; Mean Corpuscular HGB CONC 32.5 g/dL (32.0-36.0); Mean Corpuscular Hemoglobin 33.6 pg (27.0-31.0); Mean Platelet Volume 9.5 fL (7.4-10.4); Monocytes 1 % (0-10); Neutrophil 53 % (42-75); Nucleated RBC 5 % (0); Platelet Count 299 thou/uL (130-400); Polychromasia MODERATE = 3-4 cells (100X) (0-2/hpf); RBC Distribution Width 25.7 % (11.5-14.5); Red Blood Cell (RBC) Count 2.34 mill/uL (4.70-6.10); Schistocytes SLIGHT = 2-5 cells (100X) (0-1/hpf); Target Cells SLIGHT = 2-5 cells (100X) (0-1/hpf); White Blood Cell (WBC) Count 13.5 thou/uL (4.8-10.8)
[2018-08-16] MEDS: Sodium Chloride 0.9% 1,000 ML IV SCH ×2 (12:41→21:00)
--- NOTE | 2018-08-16 17:34 | PRG ---
DATE OF SERVICE: 08/16/2018 HISTORY: He is feeling better, particularly in the abdominal area. The appendicular structures stil l quite painful, did not sleep well last night because of pain in the appendicular areas. OBJECTIVE: VITAL SIGNS: His T-max is down to 98.5, blood pressure 120/80, pulse 108, respirations 18. GENERAL: Somewhat pale, little bit diaphoretic. Oriented. LUNGS: Symmetric, clear breath sounds. HEART: S1 and S2, regular rate. ABDOMEN: Softer and less distended. The appendicular structures still cleaner to palpation particula rly around the knee and ankle joints. LABORATORY DATA: White cell count down to 11.8 and now is up to 13.5, hemoglobin 7.9, platelets 299 with 53% neutrophils. The liver profile again shows improvement in bilirubin to 2.1, AST down to 122 , ALT 306, alkaline phosphatase 94. 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 Still quite sluggish improvement. At this point, no other measures recommended.
[2018-08-16] MEDS: Senokot 8.6 MG TAB PO SCH (20:57)
--- NOTE | 2018-08-16 22:22 | EKG ---
Test Reason : Blood Pressure : / mmHG Vent. Rate : 122 BPM Atrial Rate : 122 BPM P-R Int : 142 ms QRS Dur : 102 ms QT Int : 326 ms P-R-T Axes : 037 101 031 degrees QTc Int : 464 ms Sinus tachycardia Rightward axis Incomplete right bundle branch block T wave abnormality, consider anterior ischemia Abnormal ECG When compared with ECG of 02-AUG-2018 19:06, T wave inversion no longer evident in Inferior leads Confirmed by ADIS GOLD (2) on 08/16/2018 10:21:37 PM Referred By: ANGIE Confirmed By:ADIS GOLD
[2018-08-17] MEDS: Morphine IR Tab 15 MG TAB PO PRN (00:50)
--- NOTE | 2018-08-17 06:51 | PDOC.FM ---
- Subjective Subjective: Received page this AM in regards to patient's respiratory status. Please see event note for details. Patient denies any significant pain or shortness of breath, but diaphoretic and tachypneic on arrival. Patient still refusing blood transfusion unless Hg <5. - Objective MAR Reviewed: Yes Vital Signs & Weight: Vital Signs (12 hours) Temp Pulse Resp BP Pulse Ox 08/17/18 05:30 98.6 F 118 H 21 H 129/87 92 L 08/17/18 00:30 98 F 119 H 20 111/78 94 L 08/16/18 20:45 97.6 F 114 H 20 117/82 92 L Weight Admit Weight 92.986 kg Weight 101.2 kg I&O: 08/15/18 08/16/18 08/17/18 06:59 06:59 06:59 Intake Total 3820 2390 2180 Output Total 2850 500 1000 Balance 970 1890 1180 Result Diagrams: 08/17/18 10:02 08/17/18 10:02 EKG Reviewed by me: Yes Radiology Reviewed by me: Yes <Marleny Cagle - Last Filed: 08/17/18 11:28> - Objective Vital Signs & Weight: Vital Signs (12 hours) Temp Pulse Resp BP Pulse Ox 08/17/18 12:20 99 08/17/18 11:32 99.5 F 114 H 24 H 119/41 L 99 08/17/18 10:13 98.1 F 08/17/18 09:14 119 H 100 08/17/18 08:44 87 L 08/17/18 08:00 85 L 08/17/18 07:45 100.9 F H 125 H 20 120/78 85 L 08/17/18 05:30 98.6 F 118 H 21 H 129/87 92 L Weight Admit Weight 92.986 kg Weight 101.2 kg I&O: 08/16/18 08/17/18 08/18/18 06:59 06:59 06:59 Intake Total 2390 2180 443 Output Total 500 1000 Balance 1890 1180 443 Result Diagrams: 08/17/18 10:02 08/17/18 10:02 <Rebel Grimm - Last Filed: 08/17/18 13:06> Phys Exam - Physical Examination Diaphoretic, tachypneic. Mild distress. Appears solmnolent. Respiratory: no wheezing Cardiovascular: RRR 4/6 systolic murmur Gastrointestinal: soft, non-tender, positive bowel sounds mildly distended Musculoskeletal: no edema, pulses present Neurological: non-focal Psychiatric: normal affect Skin: no rash, cap refill <2 seconds <Marleny Cagle - Last Filed: 08/17/18 11:28> Dx/Plan (1) Hb-SS disease with acute chest syndrome Code(s): D57.01 - HB-SS DISEASE WITH ACUTE CHEST SYNDROME Status: Acute (2) BRENDA (acute kidney injury) Code(s): N17.9 - ACUTE KIDNEY FAILURE, UNSPECIFIED Status: Acute (3) Coagulopathy Status: Acute (4) Elevated liver function tests Code(s): R94.5 - ABNORMAL RESULTS OF LIVER FUNCTION STUDIES Status: Acute (5) Hyperbilirubinemia Code(s): E80.6 - OTHER DISORDERS OF BILIRUBIN METABOLISM Status: Acute (6) Pulmonary hypertension Code(s): I27.20 - PULMONARY HYPERTENSION, UNSPECIFIED Status: Chronic (7) Elevated troponin Code(s): R74.8 - ABNORMAL LEVELS OF OTHER SERUM ENZYMES Status: Resolved (8) Macrocytosis without anemia Code(s): D75.89 - OTHER SPECIFIED DISEASES OF BLOOD AND BLOOD-FORMING ORGANS Status: Acute (9) Pain Code(s): R52 - PAIN, UNSPECIFIED Status: Acute (10) Sickle cell anemia with crisis Code(s): D57.00 - HB-SS DISEASE WITH CRISIS, UNSPECIFIED Status: Acute - Plan Plan: 28 year old male presents with acute sickle cell crisis Sickle cell crisis, acute chest syndrome - Gradual improvement until today; patient acutely worsened. Hypoxic down to 84 % on 5L NC. ABG obtained (7.28/33.4/65/3, bicarb 15.5). Patient put on non- rebreather and satting 100%. Stat CBC, CMP, Troponin, CXR. CXR shows evidence of sickle cell disease with left lobe infiltrates. LA pending, Procalcitonin pending. Likely acute chest syndrome provoked by pulmonary embolism. Spoke with heme, and recommended PT/PTT/INR. If INR not significantly elevated, can restart xeralto. Plan for stat transfer to [facility]. Dr. Mcconnell recommending exchange transfusion, which we do not do here. Will cover patient empirically with antibiotics for acute chest syndrome in the meantime. - Patient candidate for exchange transfusion; due to acute worsening of presentation, decision was made to transfer to tertiary center. Patient in need of exchange transfusion at this time. - Continue non-rebreather - Patient back on home pain medications. He denies any significant pain currently. - Restarted fluids to assist with crisis. Acute hypoxic respiratory failure - Likely 2/2 PE as patient has been off of anticoagulation - CTA not possible d/t elevated Cr. Will order stat VQ scan, but will not delay transfer to tertiary center. 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 - Continue non-rebreather Elevated LFT's likely 2/2 sickle cell crisis - Significantly elevated this AM. - Patient in need of higher level of care Coagulopathy - PT/PTT/INR pending Anemia - Stable - Patient in need of exchange transfusion which we cannot do at this facility Hyperbilirubinemia - Acute worsening Bacteremia, ruled out - Likely contaminate from outside ED. - Multiple cx have been negative here; repeated today d/t acute worsening in presentation, along with fever Dispo: Guarded. Plan for stat transfer to tertiary [place]. Transfer in progress to [facility] in [place]. <Marleny Cagle - Last Filed: 08/17/18 11:28> Attending Addendum - Attending Addendum Date/Time: 08/17/18 1101 I personally evaluated the patient and discussed the management with Dr. Cagle this morning. I agree with the History, Examination, Assessment and Plan documented above with any addition or exceptions noted below. We are also evaluating for PE. Appreciate Pulmonology and Hematology expertise and care. <Rebel Grimm - Last Filed: 08/17/18 13:06>
[2018-08-17] MEDS: METHadone HCl 10 MG TAB PO SCH ×2 (07:33→12:31)
[2018-08-17] MEDS: Ibuprofen 600 MG TAB PO PRN (07:34)
[2018-08-17] MEDS: predniSONE 5 MG TAB PO SCH (08:15)
[2018-08-17] MEDS: Docusate 100 MG CAP PO SCH (08:16)
[2018-08-17] MEDS: diphenhydrAMINE 25 MG CAP PO SCH (08:16)
[2018-08-17] MEDS: Polyethylene Glycol 3350 17 GM Packet PO SCH (08:16)
[2018-08-17] MEDS: Gabapentin 300 MG CAP PO SCH ×2 (08:16→16:23)
[2018-08-17 08:48] LABS: Actual Bicarbonate (HCO3a) 15.5 mEq/L (22-28); Base Excess (BEa) -10.2 mEq/L (-2.0 to +3.0); CO2 Tension 33.4 mmHg (35.0-45.0); Calcium, Ionized 1.09 mmol/L (1.12-1.30); Carboxyhemoglobin (COHb) 2.8 gm% (0.0-3.0); Hemoglobin (Hb) 8.3 g/dL (14.0-18.0); O2 Tension (PaO2) 65.3 mmHg (80.0-100.0); Potassium - ABG Lab 5.67 mmol/L (3.70-5.30); pH, Arterial 7.28 (7.35-7.45)
[2018-08-17 08:54] LABS: Puncture Site RRA
[2018-08-17] MEDS ORDERED: Lactated Ringer's 1,000 ML IV SCH (09:00)
[2018-08-17] MEDS ORDERED: Hydroxyurea 500 MG CAP PO SCH (09:00)
--- NOTE | 2018-08-17 09:17 | PDOC.EVN ---
Event Note - Event Note Event Note: 8:15 AM on 08/17 Paged by nursing staff for room 4420 that patient was satting 85-86% on 5L NC. Patient reportedly did not appear to be in any respiratory distress. Upon arrival, patient tachycardic, tachypneic, and diaphoretic. He endorses nausea and one episode of emesis. He denied chest pain. He did endorse some lower extremity soreness, but denied pain elsewhere. He states from a pain standpoint , he actually feels a lot better. Obtained stat EKG and ABG. Patient put on non-rebreather. Dr. Almeida was called. Recommend transfer back to [facility]. Transfer initiated. Stat CBC, CMP, CE's , and CXR. Likely acute chest syndrome. Will consider starting antibiotics. Started LR at 125 mL/hr. Will re-evaluate and consider transfer to [place]. Marleny Cagle, DO PGY-2
[2018-08-17 10:41] LABS: CKMB 2.6 ng/mL (0-6.6); Troponin I 0.085 ng/mL (< 0.028)
[2018-08-17 10:50] LABS: ALT (SGPT) 1372 U/L (8-55); AST (SGOT) 2411 U/L (5-34); Albumin 2.8 g/dL (3.5-5.0); Alkaline Phosphatase 124 U/L (40-150); Anion Gap 22 mmol/L (10-20); BUN (Urea Nitrogen) 26 mg/dL (8.9-20.6); Bilirubin, Total 4.7 mg/dL (0.2-1.2); Calc. Creatinine Clearance 63 mL/min (70-130); Calcium 8.2 mg/dL (7.8-10.44); Carbon Dioxide 12 mmol/L (22-29); Chloride 106 mmol/L (98-107); Estimated GFR-MDRD 31; Globulin 5.2 g/dL (2.4-3.5); Glucose 59 mg/dL (70-105); Potassium 5.9 mmol/L (3.5-5.1); Sodium 134 mmol/L (136-145)
[2018-08-17 10:51] LABS: Anisocytosis MARKED = >30 cells (100X) (0-5/hpf); Band 11 % (5-11); Hemoglobin 8.3 g/dL (14.0-18.0); Lymphocytes 18 % (21-51); MDiff Complete? YES; Mean Corpuscular HGB CONC 32.6 g/dL (32.0-36.0); Mean Corpuscular Hemoglobin 33.9 pg (27.0-31.0); Mean Platelet Volume 9.3 fL (7.4-10.4); Monocytes 9 % (0-10); Neutrophil 62 % (42-75); Nucleated RBC 17 % (0); PLT Morphology Comment Appears Adequate; Platelet Count 239 thou/uL (130-400); Polychromasia MARKED = >4 cells (100X) (0-2/hpf); RBC Distribution Width 23.6 % (11.5-14.5); Red Blood Cell (RBC) Count 2.45 mill/uL (4.70-6.10); Schistocytes SLIGHT = 2-5 cells (100X) (0-1/hpf); Spherocytes SLIGHT = 1-5 cells (100X) (None Seen); Target Cells SLIGHT = 2-5 cells (100X) (0-1/hpf); White Blood Cell (WBC) Count 17.8 thou/uL (4.8-10.8)
[2018-08-17] MEDS ORDERED: Dextrose 50% Abboject 50 ML SYRINGE ONE (11:05)
--- NOTE | 2018-08-17 11:10 | RAD ---
RADIOGRAPH CHEST 1 VIEW: Date: 08-17-18 Time: 9:08 A.M. HISTORY: 28-year-old male with acute dyspnea and hypoxia. COMPARISON: 08-14-18 FINDINGS: Left IJ vascular port remains. Cardiomegaly appears similar. Mild pulmonary densities, mostly in the left perihilar midlung zone, probably not significantly changed, allowing for slight positional diffe rences. No pulmonary edema. No pneumothorax. No major interval change overall. Diffuse sclerotic lockhart ges of skeleton. IMPRESSION: 1. No significant internal change. 2. Nonspecific mild pulmonary densities, mostly on the left side. 3. Left sided internal jugular implantable vascular access port. 4. Cardiomegaly. 5. Diffuse sclerotic skeletal changes. 6. All of the above findings are evidence for sickle cell disease. KRISTI POS: NASIR
[2018-08-17] MEDS ORDERED: Azithromycin 500 MG in Sodium Chloride 0.9% 250 ML 250 ML IVPB SCH (12:00)
--- NOTE | 2018-08-17 12:01 | PRG ---
DATE OF SERVICE: 08/17/2018 This patient has had a relapse of some of his symptoms. He is more short of breath and more hypoxic than he has been. PHYSICAL EXAMINATION: VITAL SIGNS: Temperature is 99.5, pulse 114, O2 sat 99% on nonrebreather facemask. Blood pressure 1 19/41. GENERAL: He appears diaphoretic. HEENT: Unremarkable. NECK: No JVD. LUNGS: Clear anteriorly. CARDIOVASCULAR: S1, S2, tachycardic. ABDOMEN: Soft. EXTREMITIES: No edema. LABORATORY DATA: White blood count 17.8, hematocrit 25.5, platelet count 239, pH 7.28, pCO2 of 33, p O2 of 65. Sodium 134, potassium 5.9, chloride 106, CO2 12, BUN 26, creatinine 2.4, glucose 59, AST 2 411, ALT 1372. ASSESSMENT: Sickle cell now with recurrent crisis. 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 I think an excha nge transfusion needs to be considered highly as I think this is all sickle cell crisis mediated.
[2018-08-17 12:28] LABS: INR-International Normal Ratio 3.2; PTT 41.8 SEC (22.9-36.1); Prothrombin Time 33.1 SEC (12.0-14.7)
[2018-08-17 13:01] VITALS: BMI 34.9
[2018-08-17 15:42] VITALS: BP 117/64; TEMP 97.4
[2018-08-17 16:39] LABS: Lactic Acid 4.2 mmol/L (0.5-2.2)
--- NOTE | 2018-08-17 19:22 | EKG ---
Test Reason : Blood Pressure : / mmHG Vent. Rate : 120 BPM Atrial Rate : 120 BPM P-R Int : 144 ms QRS Dur : 102 ms QT Int : 342 ms P-R-T Axes : 038 100 027 degrees QTc Int : 483 ms Sinus tachycardia Incomplete right bundle branch block Right ventricular hypertrophy with repolarization abnormality Nonspecific T wave abnormality Abnormal ECG When compared with ECG of 13-AUG-2018 07:16, No significant change was found Confirmed by ROBERTO ROGERS, . S. (4) on 08/17/2018 7:21:42 PM Referred By: MACARIO kaba Confirmed By:DR. Arnulfo MEJIA MD
[2018-08-17] MEDS ORDERED: Cefepime 1 GM in Sodium Chloride 0.9% 100 ML IVPB SCH (21:00)
[2018-08-18] MEDS ORDERED: Rivaroxaban 10 MG TAB PO SCH (09:00)
--- NOTE | 2018-08-19 | DIS ---
DATE OF ADMISSION: 08/02/2018 DATE OF DISCHARGE: 08/17/2018 ADMITTING ATTENDING PHYSICIAN: Mamie Cano MD DISCHARGE ATTENDING PHYSICIAN: Rebel Grimm MD RESIDENT PHYSICIAN: Marleny Cagle DO CONSULTANTS: 1. Anesthesiology. 2. Cardiology, Dr. Fairbanks. 3. Infectious Disease, Dr. Geovanny Torres. 4. Oncology, Dr. Johnnie Mcconnell. 5. Pulmonology, Dr. Juan Almeida and Dr. Michael Conroy. PROCEDURES: 1. Initial chest x-ray on presentation showed cardiomegaly with bilateral interstitial and alveolar parenchymal changes that appear to improved from 2016 study. The findings are consistent with sickle cell disease as well as associated bone changes. There was no significant new confluent process. 2. Electrocardiogram showed an incomplete right bundle-branch block. 3. Echocardiogram showed left ventricular size to be normal with an ejection fraction visually estimated at 60% to 65%. There was abnormal paradoxical motion consistent with right ventricular volume overload and/or elevated right ventricular end-diastolic pressure. There was a severely enlarged right ventricular cavity. The left atrium was normal in size. There is a structurally normal mitral valve with trace mitral regurgitation. There is structurally normal aortic valve with no significant stenosis or regurgitation. There is severely elevated pulmonary artery pressure with pulmonary artery systolic pressure estimated to be 82 mmHg. 4. Abdominal ultrasound showed heterogeneity of the hepatic parenchyma that was nonspecific. There was no intrahepatic biliary dilatation. 5. Abdomen and pelvis CT showed hepatomegaly and diffusely heterogeneous enhancement pattern of the liver that was consistent with nonspecific diffuse hepatocellular disease. There were numerous tiny bilateral renal cortical scars from previous insults. There is atrophic, calcified infarcted spleen. There is cardiomegaly with a small pericardial effusion. There were extensive diffuse skeletal changes of sickle cell disease. There is nonspecific acute focal pulmonary nodular densities in the left lower lobe. The patient was status post cholecystectomy and total right hip replacement arthroplasty. There is minimum amount of free fluid. 6. Followup chest x-ray on 08/09 showed chronic findings. There is mild persistent interstitial prominence in the perihilar region. There are no lobar consolidations around the alveolar edema. 7. Followup abdominal x-ray on 08/13 showed distended loops of bowel and large bowel within the ileus. The small bowel had air-fluid level suggestive of low-grade small bowel obstruction. There were again skeletal findings of chronic sickle cell disease. 8. Chest x-ray on 08/13 at 4:00 a.m. showed similar appearance through multifocal airspace opacities that are suggestive of acute chest syndrome from sickle cell disease. 9. Followup EKG again showed rightward axis with sinus tachycardia and incomplete right bundle-branch block. 10. Chest x-ray on 08/14 showed nonspecific pulmonary densities, left greater than right. There was left internal jugular implantable vascular access port. There was no pneumothorax. Cardiomegaly was consistent with sickle cell disease. 11. EKG on 08/17 showed incomplete right bundle-branch block with sinus tachycardia and right ventricular hypertrophy with repolarization abnormality. 12. Chest x-ray on 08/17 showed no significant internal change. There were nonspecific mild pulmonary densities, mostly on the left side. Cardiomegaly and skeletal changes were again noted. PRIMARY DIAGNOSES: 1. Acute chest syndrome secondary to sickle cell crisis. 2. Sickle cell with recurrent crisis. 3. Acute on chronic hypoxic respiratory failure secondary to acute chest syndrome. 4. Severe pulmonary hypertension secondary to sickle cell disease. 5. Acute kidney injury. 6. Elevated liver function tests likely secondary to sickle cell disease and exacerbated by sickle cell crisis. 7. Coagulopathy secondary to liver dysfunction from sickle cell disease. 8. Anemia likely secondary to sickle cell disease. 9. Hyperbilirubinemia secondary to hepatic congestion. 10. Bacteremia, ruled out. 11. Elevated cardiac enzymes secondary to demand ischemia from sickle cell crisis. 12. History of recurrent pulmonary embolisms, on anticoagulation. DISCHARGE MEDICATIONS: The patient was stat transferred to a tertiary center at [facility] in [place]. A med rec was not performed as this was a stat transfer to [facility] in [place] for an exchange transfusion. Accepting doctor was to start medications as they deem necessary for patient's current status. At home , the patient takes diazepam 10 mg p.o. at bedtime, diphenhydramine 25 mg p.o. q.6 hours p.r.n., gabapentin 300 mg p.o. t.i.d., hydroxyurea 2500 mg p.o. daily, methadone HCl 20 mg p.o. at bedtime, morphine extended release tablet 60 mg at bedtime as well as 30 mg p.o. b.i.d., promethazine 25 mg p.o. q.6 hours p.r.n., Xarelto 20 mg p.o. daily. HOSPITAL COURSE AND HISTORY OF PRESENT ILLNESS: This is a 28-year-old male, who presented initially to the emergency department with a chief complaint of increasing pain that was not controlled with home medications. The patient states he took promethazine, Benadryl, methadone, and morphine prior to ER visit. He initially presented to [facility] and was given ketamine. [facility] then transferred the patient to [place] for further management. The patient states that he did start to feel drowsy the night before. While he was sleeping, he vomited in his sleep. Since that time, the pain had been worsening and has extended to his joints, low back, knees, left hip, and shoulders. The patient did endorse pain with deep inspiration. The patient denied any difficulty breathing, shortness of breath, cough, fever. The patient denied any sick contacts. The patient states that prior to arrival, he had been ambulatory. 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 In June, the patient was on his way to see his sickle cell specialist and biztalk architect in [place]; however, he was not able to get to the hospital as he required hospitalization and was diagnosed with severe pulmonary hypertension. He was placed on oxygen at that time. The patient states that he only used his oxygen as needed and did not use it chronically. 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 The patient was initially admitted to our service and went to the [facility]. Goals for treatment at that time were pain control. Anesthesia was consulted and the patient was put on a MOOSE HUNTER pump. Cardiology was consulted and an echo was performed. Echo did show evidence of severe pulmonary hypertension. It was discussed that no medications would be helpful in the treatment of sickle cell-induced pulmonary hypertension and the patient was to remain on oxygen. The elevated cardiac enzymes were presumed to be secondary to demand ischemia from the acute sickle cell crisis. Pulmonology was also consulted and saw the patient throughout the duration of his hospital stay. Recommendations on presentation included aggressive hydration, for which the patient did receive. The patient was also started on empiric antibiotics and supportive care for possible infection as he did have blood cultures at the outside facility which did grow out bacteria. Repeat cultures throughout the course of the patient's hospital stay were negative. The patient did continue to have to fever intermittently throughout his stay. He was also noted to be tachycardic for several days during the initial hospital stay. Once the patient's pain was better controlled, the tachycardia did resolve. Hematology/Oncology was consulted. Dr. Mcconnell from Oncology did assess the patient and agreed with the diagnosis of acute chest syndrome at the time of his evaluation, which he presumed to be secondary to pneumonia. He agreed with antibiotic choice at that time. The patient's hemoglobin was noted to be at baseline and the patient did have an appropriate reticulocyte response. Thus, he was not transfused at the time of evaluation by Hematology/Oncology. The patient was continued on hydroxyurea. The patient was taken off Xarelto, which he was taking at home for recurrent pulmonary emboli as Hem/Onc was concerned about the effect that it would have on the liver enzymes, which were already elevated during the patient's hospital stay. The patient was also receiving FFP, which could interfere with the Xarelto. The patient continued to very gradually improve during the course of his hospital stay. He was able to return to his baseline home medications and was taken off the MOOSE HUNTER pump. Due to the nature of intermittent fever as well as presumed bacteremia from outside cultures that were obtained, Dr. Torres from Infectious Disease was consulted for recommendations. The patient was noted to have bandemia on several occasions. Dr. Torres states that the organisms identified from the blood cultures could represent a contaminant of the sample. It was difficult to assess whether it was a contaminant versus a true bacteremia as the outside ER only obtained one culture. Per Dr. Torres' recommendations, cultures were redrawn and the patient was continued on antimicrobial therapy. As cultures at our facility were all negative on several occasions, it was speculated by Dr. Torres that this could be a complication of hepatic dysfunction, sickle cell disease, which can manifest in patients with elevation of transaminases associated with fibrosis, cirrhosis, and decreased liver function by adulthood. He stated that about 10% of patients with hepatic crisis can have abdominal pain, nausea, fever, jaundice, and transaminase elevation. It was recommended that with persistently elevated liver enzymes, viral hepatitis will be ruled out. Viral panel was negative except for evidence of hepatitis A viral infection sometime in the distant past. There was no evidence of biliary duct dilation, thus CBD obstruction was less likely. Hepatic congestion associated with pulmonary hypertension was a possibility. Once the test results and the blood cultures were negative, the patient was taken off antibiotics. Goals of care during remainder of Mr. Malcolm's hospital stay included pain management and resolution of the sickle cell crisis. The patient did have labs that waxed and waned in terms of severity. Several days prior to his transfer, his liver enzymes and kidney function worsened, which showed potential setback in his progress. However, the following day, the patient's labs did improve and he was stating that he was no longer in significant amount of pain. He was ambulating with minimal assistance. The patient was to the point, where he was actually ready for discharge home as he was doing so well and he had a support system present in the room on the day of that discussion who also agreed that he was almost back to baseline. However, on the day of transfer, the resident team received a call in regards to the patient acutely decompensating. He was requiring 5 L of O2 and only satting 84% at that time. The patient was immediately evaluated and an ABG was performed, which showed evidence of metabolic acidosis. The patient was placed on a nonrebreather and started satting 100%. Due to the nature of acute decompensation, a stat transfer was decided upon by myself, Hem/Onc, and Pulmonology. The intent was to transfer the patient to [place] where his specialists resides. However, [facility] in [place] declined the transfer as they were at capacity. Thus, it was decided that the patient would be going to [facility] as he was in urgent need of an exchange transfusion. Of note, at several points during the hospitalization, an attempt at transfusion was made. However, the patient adamantly refused the transfusion unless the hemoglobin dropped below 5. Specially type and crossmatch blood was sent in from [place] for the patient should he have decided on a transfusion, however, we could never get him to agree to one despite the fact that he seemed to not be improving. Calls were made and the patient was accepted at [address] Arnett at [facility] in [place]. Arrangements were made for the patient to be transferred to [facility] via the quickest way possible. The patient's hospital stay was very complicated. He had periods in which he was doing very well and seemed to be improving and periods in which he seemed to be declining. An attempt at transfer was to be made sooner, however, due to the sudden improvement in patient's clinical status and per the patient's preference, it was decided that we would forego transfer as there was thought that the patient would be discharged within the next few days. Of note, on arrival, it was explained that the patient would be better served at a hospital in [place], where he could be with a specialist who knows his condition. The patient refused on several occasions to follow this suggestion for transfer. That is why we brought him the blood from [place] for transfusion to be performed. However, even after the blood arrived , the patient denied a transfusion unless hemoglobin dropped below 5. Thus, we reached the extent of viability to care for the patient at our facility and deemed it necessary that he get an exchange transfusion at a hospital that would be able to provide that service. Thus, a transfer to [facility] was made and the patient was transferred to the facility. DISPOSITION: Guarded. DISCHARGE INSTRUCTIONS: 1. Transfer to [facility]. 2. Activity as tolerated. 3. Diet, regular. 4. Followup, the patient's followup will be established by attending physician at [facility]. Job ID: [id number] [id number]
== END 2018-08-17 17:33 | disposition short-term general hospital (02) | DRG 811 ==
LOC: IMCU/EMU 17:04 → T4-B 08-15 20:16 → IMCU/EMU 08-17 12:33
PROVIDERS: ADMIT Emergency Medicine; ATTEND Emergency Medicine
PROC: 30233K1 Transfusion of Nonautologous Frozen Plasma into Peripheral Vein, Percutaneous Approach (ICD-10-PCS; principal; 2018-08-06)
DX: D57.01 Hb-SS disease with acute chest syndrome (principal); I21.4 Non-ST elevation (NSTEMI) myocardial infarction; J18.9 Pneumonia, unspecified organism; J96.21 Acute and chronic respiratory failure with hypoxia; N17.9 Acute kidney failure, unspecified; D68.9 Coagulation defect, unspecified; M87.9 Osteonecrosis, unspecified; I24.8 Other forms of acute ischemic heart disease; I27.82 Chronic pulmonary embolism; I31.3 Pericardial effusion (noninflammatory); D57.00 Hb-SS disease with crisis, unspecified; E80.6 Other disorders of bilirubin metabolism; I27.20 Pulmonary hypertension, unspecified; R74.8 Abnormal levels of other serum enzymes; D75.89 Other specified diseases of blood and blood-forming organs; D64.9 Anemia, unspecified; Z96.641 Presence of right artificial hip joint; K76.1 Chronic passive congestion of liver; I11.0 Hypertensive heart disease with heart failure; I50.810 Right heart failure, unspecified; I27.21 Secondary pulmonary arterial hypertension; R01.1 Cardiac murmur, unspecified; Z86.718 Personal history of other venous thrombosis and embolism; Z79.01 Long term (current) use of anticoagulants; K76.9 Liver disease, unspecified; R74.0 Nonspecific elevation of levels of transaminase and lactic acid dehydrogenase [LDH]; R94.5 Abnormal results of liver function studies; K59.00 Constipation, unspecified
CPT/HCPCS: 36415; 36416; 36430; 71045; 71046; 74018; 74177; 76705; 80053; 80074; 80202; 82553; 82805; 83021; 83605; 83615; 84145; 84484; 85025; 85046; 85362; 85384; 85610; 85730; 86706; 86709; 86803; 86850; 86900; 86901; 86922; 87040; 87086; 87340; 87633; 87804; 93005; 93010; 93306; A4216; J0456; J0692; J1200; J1940; J1956; J2405; J2550; J2997; J3010; J3370; J7050; P9016; P9059